=== PATIENT | female | born 1995 | race Caucasian/White ===

== ENCOUNTER 2019-11-12 23:39 | Inpatient (IN) | payer MEDICAID, SELFPAY ==
[2019-11-12 23:41] VITALS: BP 145/84; PULSE 105; RESP 18; TEMP 36.9; O2SAT 99; BMI 42.6
[2019-11-13] VITALS (46 sets, daily range): BP systolic 0–157; BP diastolic 0–93; PULSE 83–110; RESP 16; TEMP 36.8; O2SAT 97–100; BMI 43.8
--- NOTE | 2019-11-13 00:04 | W.ED.FEMALGU ---
HPI - Female Genitourinary General: Chief complaint: Urogenital-Female Stated complaint: possible uti Time Seen by Provider: 11/12/19 23:56 History of Present Illness: HPI Narrative: Patient complains about burning with urination has had some blood in her urine. Did see her OBGyn today and he told her that her urine looked kind of yucky and that he went to see her again in few days make sure the urine clears up. She is due December 05. [address] do some close shop and after appointment and she just noticed that it started burning more and she started going to bathroom more and worried that maybe she has an infection she did take some Azo-Standard also today. Denies any vaginal bleeding and says the baby is moving fine. 3 para 2 had preeclampsia with her first delivery and gestational diabetes with both pregnancies scheduled for MD elicited complaint: dysuria Onset (ago): hour(s) Location of symptoms: external genitalia and RLQ Severity: mild Quality of pain: burning Consistency: progressively worsening Urinary symptoms: Dysuria and Foul Smelling Urine Relieving factors: none Associated symptoms: Deny abdominal pain, headache(s) or nausea Treatment prior to arrival: OTC urinary analgesics Expected Date of Delivery: 12/06/19 Review of Systems Const: Denies: fever, chills or body aches Eyes: Denies: change in vision or blurry vision ENMT: Denies: throat pain or nasal congestion Card: Denies: chest pain or shortness of breath on exertion Resp: Denies: shortness of breath, productive cough or non-productive cough GI: Denies: abdominal pain, nausea or vomiting : Reports: painful urination, urinary frequency and urinary urgency Musc: Denies: extremity pain Skin/Breast: Denies: rash Neuro: Denies: headache Psych: Denies: anxiety or depression Asim/Lymph: Denies: easy bruising PFSH ED PFSH: Social History Smoking and tobacco status: never smoked Physical Exam Const: COMMON NORMALS: no apparent distress, average body habitus and oriented x3 HENMT: COMMON NORMALS: normocephalic HEAD & SCALP: normal to inspection and normocephalic FACE & SINUS: normal facial exam Eye: COMMON NORMALS: conjunctivae normal GENERAL EYE: normal appearance of both eyes CONJUNCTIVA: Yes conjunctivae normal Neck/C-Spine: COMMON NORMALS: no JVD Chest: COMMONS NORMALS: inspection of chest normal Resp: COMMON NORMALS: normal respiratory effort and clear to auscultation bilaterally AUSCULTATION: clear to auscultation bilaterally Cardio: COMMON NORMALS: no JVD, regular rate and regular rhythm RATE: regular rate RHYTHM: regular rhythm GI: COMMON NORMALS: normal to inspection, nondistended, normoactive bowel sounds Extremity: COMMON NORMALS: normal to inspection and full ROM Neuro: COMMON NORMALS: oriented x3 Course Vital Signs: Vital signs: Vital Signs Temperature 98.5 F 11/12/19 23:41 Pulse Rate 85 11/13/19 02:06 Respiratory Rate 16 11/13/19 02:06 Blood Pressure 141/92 11/13/19 02:06 Pulse Oximetry 99 11/13/19 02:06 MDM - Female MDM Narrative: Medical decision making narrative: Discussed patient with Dr. Luther and then call Dr. Dietrich at [facility] who is patient's physician. Discussed whether to transfer patient or have patient have a stress test done here Dr. Dietrich would like first to the nonstress test here. And have patient follow-up first thing Friday morning his clinic. I did discuss him with the lab results that we had available. Spoke with Dr. Luther again he was advised to call Dr. Ybarra I called Dr. Ybarra and explained patient's case and and he said they will send patient up to the OB floor for preeclampsia /nonstress test work-up. Lab work Has been drawn here in the ER here in the ER spoke with nurse and that to share lab work with Dr. Ybarra once his back nonstress test is done. Lab Data: Labs: Lab Results 11/13/19 11/13/19 11/13/19 Range/Units 00:22 01:33 01:33 WBC 9.5 (4.0-10.0) 10^3/ uL RBC 3.46 L (4.1-5.3) 10^6/u L Hgb 8.7 L (11.5-15.3) g/dL Hct 27.4 L (37.0-47.0) % MCV 79.2 L (81-99) fL MCH 25.1 L (28.0-34.0) pg MCHC 31.8 (30.0-36.0) g/dL RDW 13.5 (12.1-15.1) % Plt Count 295 (130-400) 10^3/c mm MPV 10.0 (7.4-10.4) fL Neut % (Auto) 62.9 % Lymph % (Auto) 24.2 % [place] % (Auto) 9.5 % Eos % (Auto) 0.9 % Baso % (Auto) 0.2 % Neut # (Auto) 6.0 (1.8-7.7) 10^3/u L Lymph # (Auto) 2.3 (0.8-4.8) 10^3/u L [place] # (Auto) 0.9 (0.2-0.9) 10^3/u L Eos # (Auto) 0.1 (0.0-0.8) 10^3/u L Baso # (Auto) 0.0 (0.0-0.1) 10^3/u L Nucleated RBC % (a uto) 0 % Nucleated RBCs # 0.0 /100WBC Sodium 134 L (136-145) mmol/L Potassium 3.7 (3.5-5.1) mmol/L Chloride 102 (98-107) mmol/L Carbon Dioxide 21 L (22-29) mmol/L Anion Gap 14.7 (5-19) BUN 8 (6-20) mg/dL Creatinine 0.5 (0.5-0.9) mg/dL GFR Calculation 149.1 H (90-130) mL/min Glucose 131 H (65-115) mg/dL Uric Acid 3.6 (2.4-5.7) mg/dL Calcium 9.5 (8.5-10.5) mg/dL Total Bilirubin 0.2 (0.15-1.2) mg/dL AST 14 (0-32) U/L ALT 7 (0-33) U/L Alkaline Phosphata se 88 (35-105) IU/L Total Protein 6.7 (6.6-8.7) g/dL Albumin 3.1 L (3.5-5.2) g/dL Globulin 3.6 (1.3-4.6) g/dL Urine Color [place] (Yellow) Urine Appearance Cloudy (CLEAR) Urine pH 5 (5-7) Ur Specific Gravit y 1.025 (1.005-1.030) Urine Protein 3+ H (Negative) Urine Glucose (UA) Norm (Normal) Urine Ketones Negative (Negative) Urine Blood 3+ H (Negative) Urine Nitrate Positive H (Negative) Urine Bilirubin 2+ H (NEGATIVE) Urine Urobilinogen 4+ H (Negative) mg/dL Ur Leukocyte Dayna ase Negative (Negative) Urine RBC >100 H (0-2) /hpf Urine WBC 5-10 H (0-5) /hpf Ur Squamous Epith Cells 0-4 H (0-5) Calcium Oxalate Cr ystal 0-4 H /hpf Urine Bacteria 1+ H (NONE) Discharge Plan Discharge Patient Disposition: Home, Self-Care Clinical Impression: Proteinuria affecting in third trimester Urinary tract infection Qualifiers: Urinary tract infection type: acute cystitis Hematuria presence: with hematuria Qualified Code(s): N30.01 - Acute cystitis with hematuria Condition: Stable Prescriptions: New Keflex 500 mg capsule 500 mg PO TID 7 Days Qty: 21 RF: 0 No Action Lamictal XR 100 mg Tablet Extended Release 24hr 100 mg PO DAILY RF: 0 Gummies 400 mcg-35 mg- 25 mg-5 mg Tablet,Chewable 1 tab PO DAILY RF: 0 Referrals: David Schmidt MD [Primary Care Provider] - Discharge Diet: Usual diet Patient Instructions: Urinary Tract Infection in Women (ED) Activity Restrictions/Additional Instructions: Go up to OB for preeclampsia work-up Discharge Date/Time: 11/13/19 02:07 Coding Level of Care Code ED Drafter (Cad) Electrical for Chg Fwd Exam Comprehensive
--- NOTE | 2019-11-13 00:47 | PC.NURSE ---
PATIENT STATES SHE WENT TO HER OB TODAY AND HER URINE CAME BACK WITH BLOOD IN IT. PATIENT STATES THAT TODAY SHE WAS STARTING TO SEE BLOOD IN HER URINE, AND THAT HER URINE SMELLED BAD. PATIENT STATES THAT TONIGHT SHE STARTED TO HAVE PAIN IN HER URETHRA AND VAGINAL AREA. PATIENT STATES THE PAIN IS STABBING .
[2019-11-13 01:08] LABS: Bilirubin Urine 2+ (NEGATIVE); Blood Urine 3+ (Negative); Glucose Urine UA Norm (Normal); Ketones Urine Negative (Negative); Nitrate Urine Positive (Negative); Protein Urine 3+ (Negative); Specific Gravity, Urine 1.025 (1.005-1.030); Urine Appearance Cloudy (CLEAR); Urine Color Orange (Yellow); pH Urine 5 (5-7)
[2019-11-13 01:09] LABS: Urobilinogen Urine 4+ mg/dL (Negative)
[2019-11-13 01:10] LABS: Add Urine Culture? Yes; Bacteria Urine 1+; Calcium Oxalate Crystals Urine 0-4 /hpf; Leukocyte Esterase Urine Negative (Negative); RBC Urine >100 /hpf (0-2); Squamous Epithelial Cell Urine 0-4 (0-5)
[2019-11-13 01:48] LABS: Basophils % 0.2 %; Eosinophils # 0.1 10^3/uL (0.0-0.8); Eosinophils % 0.9 %; Hematocrit 27.4 % (37.0-47.0); Hemoglobin 8.7 g/dL (11.5-15.3); Lymphocytes # 2.3 10^3/uL (0.8-4.8); Lymphocytes % 24.2 %; Mean Corpuscular HGB Conc 31.8 g/dL (30.0-36.0); Mean Corpuscular Hemoglobin 25.1 pg (28.0-34.0); Mean Corpuscular Volume 79.2 fL (81-99); Monocytes # 0.9 10^3/uL (0.2-0.9); Monocytes % 9.5 %; Neutrophils % 62.9 %; Nucleated Red Blood Cells % 0 %; Platelet Count 295 10^3/cmm (130-400); Red Blood Count 3.46 10^6/uL (4.1-5.3); Red Cell Distribution Width 13.5 % (12.1-15.1); White Blood Count 9.5 10^3/uL (4.0-10.0)
[2019-11-13] MEDS: amoxicillin 500 mg Capsule PO (01:50)
--- NOTE | 2019-11-13 01:54 | PC.NURSE ---
OB IN ROOM DOING NST
[2019-11-13 02:08] LABS: Alanine Aminotransferase 7 U/L (0-33); Albumin Level 3.1 g/dL (3.5-5.2); Alkaline Phosphatase 88 IU/L (35-105); Anion Gap 14.7 (5-19); Aspartate Amino Transferase 14 U/L (0-32); Blood Urea Nitrogen 8 mg/dL (6-20); Calcium 9.5 mg/dL (8.5-10.5); Carbon Dioxide 21 mmol/L (22-29); Chloride 102 mmol/L (98-107); Globulin 3.6 g/dL (1.3-4.6); Glomerular Filtration Rate 149.1 mL/min (90-130); Glucose 131 mg/dL (65-115); Potassium 3.7 mmol/L (3.5-5.1); Sodium 134 mmol/L (136-145); Total Bilirubin 0.2 mg/dL (0.15-1.2); Total Protein 6.7 g/dL (6.6-8.7); Uric Acid 3.6 mg/dL (2.4-5.7)
[2019-11-13 04:53] LABS: UPRO/UCREAT Ratio 0.13 mg/mg CR; Urine Creatinine 104 mg/dL (28-217); Urine Protein Random 14 mg/dL
[2019-11-13] MEDS: magnesium sulfate premix 20 GM/500 ML BAG IV (05:15)
[2019-11-13] MEDS: magnesium sulfate premix 4 GM/100 ML PREMIX IV (05:15)
[2019-11-13] MEDS: lactated ringers 1,000 ML 125 ML (05:17)
[2019-11-13] MEDS: labetalol 5 mg/mL SDV 20mL 10 MG IVP (05:18)
--- NOTE | 2019-11-13 05:23 | P.TS_ITS ---
Transfer Summary Providers Date of Admission: 11/13/19 02:10 Date of Discharge: 11/13/19 Attending Provider at Admission: Meliton Ybarra DO Attending Provider at Transfer: Meliton Ybarra DO Primary Care Provider: David Schmidt MD Anticipated Date of Transfer: Anticipated date of transfer: 11/13/19 Receiving Facility & Provider: Receiving Provider: [Dr Raygoza] Receiving facility: [[facility]] Diagnoses at Discharge Discharge Diagnosis (1) Pre-eclampsia: Status: Acute Problem details: Patient has criteria for preeclampsia or severe per her blood pressure readings. At this time she is on IV labetalol and mag sulfate will and have made arrangements to transfer to [facility] for further care and delivery at gestational age of 34 to 35 weeks. (2) Obesity affecting in third trimester: Status: Acute (3) Seizure disorder: Status: Acute Problem details: Patient has longstanding history of seizure disorder I do not think T seizure type activity reported under observation limb delivery was a seizure related to eclampsia her mother states that it was the same type of seizure type activity a t the patient has had her whole life Reason for Visit Reason for Visit: Reason For Visit: possible uti Hospital Course Hospital Course: 25-year-old G3, P2 lady with EDC of 12/12/2019 based on LMP 11/07/2018 put her at 35+6 weeks today however ultrasound done in late first trimester on would put her EDC today at 19 December 2019 currently 34+6 weeks. [facility] is on her way home from [place] today stopped into our emergency department with complaints of dysuria and evaluation in the ED was felt to have a urinary tract infection. At the request of her primary OB patient was sent to our labor and delivery for NST. While in labor and delivery patient had a category 1 tracing with baseline in the 145's. There was a brief 92nd episode of when the heart rate was not being recorded however I felt that this was due to movement after review of strip and not due to a deceleration. Is of note that in labor and delivery being observed patient's blood pressure was running baseline 140s to 150s with episodes up into 160s and 170s and at 1 point was 175/102. ( She has been followed by Dr. Dietrich for preeclampsia). Also while being monitored on labor delivery she had a seizure-like episode. This was not [place] per witnesses but more of a extremity shaking type episode. Patient's mother states this was similar to the seizure activity she has had throughout her life. Patient upon my arrival was not postictal. Due to her high blood pressure she was given labetalol 10 mg IV which brought her blood pressures down nicely into the 130s 140s over 80s to 90s. She also was started on magnesium sulfate 4 g bolus followed by 2 g/h. At this time she does have a category 1 tracing no contractions her blood pressure has indeed stabilized at consistently less than 160/100 I do however believe that this is indeed preeclampsia with severe features and with dates between 34+6 and 35+6 without the ability of NICU/nursery support who made arrangements to transfer patient to high risk center at [facility] in [facility] under the care of Dr. Raygoza Discharge Summary: See above after receiving IV labetalol mag sulfate patient stabilized out very nicely category 1 tracing events were made to ship/transfer patient by ground to [facility] in [place]. Labs: Hemoglobin 8.7 hematocrit 27.4 platelets 295,000 BUN of 8 creatinine 0.5 AST 14 ALT 7 alkaline phosphatase 88 glucose 131 Clean-catch urine showed 3+ protein 3+ blood positive nitrites negative leukocyte esterase urine RBCs greater than 105-10 white cells and 0-4 epi cells's. Protein creatinine ratio: 0.13 Physical Exam Narrative: EXAM NARRATIVE: Alert and oriented no acute distress obese female laying in bed oriented to time space and circumstance (post seizure ) Skin is generally clear HEENT grossly normal Neck supple nontender nodes or masses Lungs clear to auscultation Heart regular sinus rhythm Abdomen obese gravid soft nontender fundal height consistent with dates question vertex by Darryl's. Monitor shows category 1 tracing heart rate 140s to 145. No contractions noted Pelvic exam: Cx L/Cl/ Post Extremities grossly intact 2+ pitting edema lower extremities. Neuro right patella DTR 2-3/4 2 no clonus. TS Data Data Completed and Pending: Pending at discharge Category Date Time Status Magnesium Level ( OB Only) Q6H Lab 11/13/19 11:15 Ordered Urine Culture Sta t Lab 11/13/19 00:22 Received Labs from last 24 hours 11/13/19 11/13/19 11/13/19 04:15 01:33 01:33 WBC 9.5 RBC 3.46 L Hgb 8.7 L Hct 27.4 L MCV 79.2 L MCH 25.1 L MCHC 31.8 RDW 13.5 Plt Count 295 MPV 10.0 Neut % (Auto) 62.9 Lymph % (Auto) 24.2 [place] % (Auto) 9.5 Eos % (Auto) 0.9 Baso % (Auto) 0.2 Neut # (Auto) 6.0 Lymph # (Auto) 2.3 [place] # (Auto) 0.9 Eos # (Auto) 0.1 Baso # (Auto) 0.0 Nucleated RBC % (a uto) 0 Nucleated RBCs # 0.0 Sodium 134 L Potassium 3.7 Chloride 102 Carbon Dioxide 21 L Anion Gap 14.7 BUN 8 Creatinine 0.5 GFR Calculation 149.1 H Glucose 131 H Uric Acid 3.6 Calcium 9.5 Total Bilirubin 0.2 AST 14 ALT 7 Alkaline Phosphata se 88 Total Protein 6.7 Albumin 3.1 L Globulin 3.6 Urine Color Urine Appearance Urine pH Ur Specific Gravit y Urine Protein Urine Glucose (UA) Urine Ketones Urine Blood Urine Nitrate Urine Bilirubin Urine Urobilinogen Ur Leukocyte Dayna ase Urine RBC Urine WBC Ur Squamous Epith Cells Calcium Oxalate Cr ystal Urine Bacteria U Random Total Pro tein 14 Urine Creatinine 104 Protein/Creatinin Ratio 0.13 11/13/19 00:22 WBC RBC Hgb Hct MCV MCH MCHC RDW Plt Count MPV Neut % (Auto) Lymph % (Auto) [place] % (Auto) Eos % (Auto) Baso % (Auto) Neut # (Auto) Lymph # (Auto) [place] # (Auto) Eos # (Auto) Baso # (Auto) Nucleated RBC % (a uto) Nucleated RBCs # Sodium Potassium Chloride Carbon Dioxide Anion Gap BUN Creatinine GFR Calculation Glucose Uric Acid Calcium Total Bilirubin AST ALT Alkaline Phosphata se Total Protein Albumin Globulin Urine Color [place] Urine Appearance Cloudy Urine pH 5 Ur Specific Gravit y 1.025 Urine Protein 3+ H Urine Glucose (UA) Norm Urine Ketones Negative Urine Blood 3+ H Urine Nitrate Positive H Urine Bilirubin 2+ H Urine Urobilinogen 4+ H Ur Leukocyte Dayna ase Negative Urine RBC >100 H Urine WBC 5-10 H Ur Squamous Epith Cells 0-4 H Calcium Oxalate Cr ystal 0-4 H Urine Bacteria 1+ H U Random Total Pro tein Urine Creatinine Protein/Creatinin Ratio Vitals: Last Vital Signs Temp 98.3 F 11/13/19 02:35 Pulse 94 11/13/19 05:17 Resp 16 11/13/19 02:06 BP 0/0 11/13/19 05:21 Pulse Ox 99 11/13/19 05:18 TS Medications Medications Home Medications PNV [id number] [ Gummies] 1 tab PO DAILY 11/12/19 [History Confirmed 11/12/19] lamotrigine [Lamictal XR] 100 mg PO DAILY 11/12/19 [History Confirmed 11/12/19] cephalexin [Keflex] 500 mg PO TID 7 Days #21 cap 11/13/19 [Rx] Active Medications Calcium Gluconate (Calcium Gluconate) 1 gm IVP ONCE PRN PRN Reason: Reversal of Magnesium Sulfate Cefazolin Sodium/Dextrose (Kefzol) 2 gm in 50 mls @ 100 mls/hr IV ONCE ONE; Protocol Stop: 11/13/19 05:24 Last Admin: 11/13/19 05:14 Dose: 100 mls/hr Documented by: Magnesium Sulfate (Magnesium Sulfate Premix) 2 gm in 50 mls @ 50 mls/hr IV ONCE ONE Stop: 11/13/19 06:01 Magnesium Sulfate (Magnesium Sulfate Premix) 4 gm in 100 mls @ 50 mls/hr IV ONCE ONE Stop: 11/13/19 07:01 Last Admin: 11/13/19 05:15 Dose: 50 mls/hr Documented by: Dextrose/Lactated Ringer's (Dextrose 5%-Lactated Ringers) 1,000 mls @ 125 mls/hr IV .Q8H JIMBO Magnesium Sulfate (Magnesium Sulfate Premix) 20 gm in 500 mls @ 50 mls/hr IV .Q10H JIMBO Last Admin: 11/13/19 05:15 Dose: 50 mls/hr Documented by: Discharge Plan Discharge Patient Disposition: Home, Self-Care Condition: Stable Prescriptions: New Keflex 500 mg capsule 500 mg PO TID 7 Days Qty: 21 RF: 0 No Action Lamictal XR 100 mg Tablet Extended Release 24hr 100 mg PO DAILY RF: 0 Gummies 400 mcg-35 mg- 25 mg-5 mg Tablet,Chewable 1 tab PO DAILY RF: 0 Discharge Orders: Discharge Order (Routine); Ordered 11/13/19 Ordered By: Meliton Ybarra Referrals: David Schmidt MD [Primary Care Provider] - Discharge Diet: Usual diet Patient Instructions: Urinary Tract Infection in Women (ED) Activity Restrictions/Additional Instructions: Go up to OB for preeclampsia work-up Transfer Attestations Time Spent in Transfer Care*: greater than 30 min Specific Discharge Activities: Specific discharge activities: educating patient, educating and/or supporting family/caregiver, discussing with pcp/other providers, documenting/other paperwork and evaluating patient/reviewing data Other discharge activites (optional): arranging transfer Time Spent in Smoking Cessation: Details of Smoking Cessation Education: n/a Status at Transfer: Cognitive status at transfer: cognitively intact , Behavioral status at transfer: cooperative , Functional status at transfer: bed bound Overall status at transfer: patient is back to baseline Coding Level of Care Code Acute Project Accountant for Chg Fwd History Detailed Exam Detailed Medical Decision Making High Complexity Diagnoses Pre-eclampsia O14.90 Obesity affecting in third trimester O99.213 Seizure disorder G40.909 Time Spent (min) 90 Comment 90 minutes spent in patient's care and transfer greater than 50% in patient and family education and consultation with other providers.
--- NOTE | 2019-11-13 05:42 | PM.TDS ---
Transfer Summary Providers Date of Admission: 11/13/19 02:10 Date of Discharge: 11/13/19 Attending Provider at Admission: Meliton Ybarra DO Attending Provider at Transfer: Meliton Ybarra DO Primary Care Provider: David Schmidt MD Anticipated Date of Transfer: Anticipated date of transfer: 11/13/19 Receiving Facility & Provider: Receiving Provider: [] Receiving facility: [] Diagnoses at Discharge Discharge Diagnosis (1) Pre-eclampsia: Status: Acute Problem details: Patient has criteria for preeclampsia or severe per her blood pressure readings. At this time she is on IV labetalol and mag sulfate will and have made arrangements to transfer to [facility] for further care and delivery at gestational age of 34 to 35 weeks. (2) Obesity affecting in third trimester: Status: Acute (3) Seizure disorder: Status: Acute Problem details: Patient has longstanding history of seizure disorder I do not think T seizure type activity reported under observation limb delivery was a seizure related to eclampsia her mother states that it was the same type of seizure type activity at the patient has had her whole life Reason for Visit Reason for Visit: Reason For Visit: possible uti Hospital Course Hospital Course: 25-year-old G3, P2 lady with EDC of 12/12/2019 based on LMP 11/07/2018 put her at 35+6 weeks today however ultrasound done in late first trimester on would put her EDC today at 19 December 2019 currently 34+6 weeks. [facility] is on her way home from [place] today stopped into our emergency department with complaints of dysuria and evaluation in the ED was felt to have a urinary tract infection. At the request of her primary OB patient was sent to our labor and delivery for NST. While in labor and delivery patient had a category 1 tracing with baseline in the 145's. There was a brief 92nd episode of when the heart rate was not being recorded however I felt that this was due to movement after review of strip and not due to a deceleration. Is of note that in labor and delivery being observed patient's blood pressure was running baseline 140s to 150s with episodes up into 160s and 170s and at 1 point was 175/102. ( She has been followed by Dr. Dietrich for preeclampsia). Also while being monitored on labor delivery she had a seizure-like episode. This was not [place] per witnesses but more of a extremity shaking type episode. Patient's mother states this was similar to the seizure activity she has had throughout her life. Patient upon my arrival was not postictal. Due to her high blood pressure she was given labetalol 10 mg IV which brought her blood pressures down nicely into the 130s 140s over 80s to 90s. She also was started on magnesium sulfate 4 g bolus followed by 2 g/h. At this time she does have a category 1 tracing no contractions her blood pressure has indeed stabilized at consistently less than 160/100 I do however believe that this is indeed preeclampsia with severe features and with dates between 34+6 and 35+6 without the ability of NICU/nursery support who made arrangements to transfer patient to high risk center at [facility] in [facility] under the care of Dr. Jaret BURRIS Data Data Completed and Pending: Pending at discharge Category Date Time Status Magnesium Level ( OB Only) Q6H Lab 11/13/19 11:15 Ordered Urine Culture Sta t Lab 11/13/19 00:22 Received Labs from last 24 hours 11/13/19 11/13/19 11/13/19 04:15 01:33 01:33 WBC 9.5 RBC 3.46 L Hgb 8.7 L Hct 27.4 L MCV 79.2 L MCH 25.1 L MCHC 31.8 RDW 13.5 Plt Count 295 MPV 10.0 Neut % (Auto) 62.9 Lymph % (Auto) 24.2 [place] % (Auto) 9.5 Eos % (Auto) 0.9 Baso % (Auto) 0.2 Neut # (Auto) 6.0 Lymph # (Auto) 2.3 [place] # (Auto) 0.9 Eos # (Auto) 0.1 Baso # (Auto) 0.0 Nucleated RBC % (a uto) 0 Nucleated RBCs # 0.0 Sodium 134 L Potassium 3.7 Chloride 102 Carbon Dioxide 21 L Anion Gap 14.7 BUN 8 Creatinine 0.5 GFR Calculation 149.1 H Glucose 131 H Uric Acid 3.6 Calcium 9.5 Total Bilirubin 0.2 AST 14 ALT 7 Alkaline Phosphata se 88 Total Protein 6.7 Albumin 3.1 L Globulin 3.6 Urine Color Urine Appearance Urine pH Ur Specific Gravit y Urine Protein Urine Glucose (UA) Urine Ketones Urine Blood Urine Nitrate Urine Bilirubin Urine Urobilinogen Ur Leukocyte Dayna ase Urine RBC Urine WBC Ur Squamous Epith Cells Calcium Oxalate Cr ystal Urine Bacteria U Random Total Pro tein 14 Urine Creatinine 104 Protein/Creatinin Ratio 0.13 11/13/19 00:22 WBC RBC Hgb Hct MCV MCH MCHC RDW Plt Count MPV Neut % (Auto) Lymph % (Auto) [place] % (Auto) Eos % (Auto) Baso % (Auto) Neut # (Auto) Lymph # (Auto) [place] # (Auto) Eos # (Auto) Baso # (Auto) Nucleated RBC % (a uto) Nucleated RBCs # Sodium Potassium Chloride Carbon Dioxide Anion Gap BUN Creatinine GFR Calculation Glucose Uric Acid Calcium Total Bilirubin AST ALT Alkaline Phosphata se Total Protein Albumin Globulin Urine Color [place] Urine Appearance Cloudy Urine pH 5 Ur Specific Gravit y 1.025 Urine Protein 3+ H Urine Glucose (UA) Norm Urine Ketones Negative Urine Blood 3+ H Urine Nitrate Positive H Urine Bilirubin 2+ H Urine Urobilinogen 4+ H Ur Leukocyte Dayna ase Negative Urine RBC >100 H Urine WBC 5-10 H Ur Squamous Epith Cells 0-4 H Calcium Oxalate Cr ystal 0-4 H Urine Bacteria 1+ H U Random Total Pro tein Urine Creatinine Protein/Creatinin Ratio Vitals: Last Vital Signs Temp 98.3 F 11/13/19 02:35 Pulse 92 11/13/19 05:38 Resp 16 11/13/19 02:06 BP 135/75 11/13/19 05:38 Pulse Ox 99 11/13/19 05:38 TS Medications Medications Home Medications PNV [id number] [ Gummies] 1 tab PO DAILY 11/12/19 [History Confirmed 11/12/19] lamotrigine [Lamictal XR] 100 mg PO DAILY 11/12/19 [History Confirmed 11/12/19] cephalexin [Keflex] 500 mg PO TID 7 Days #21 cap 11/13/19 [Rx] Active Medications Calcium Gluconate (Calcium Gluconate) 1 gm IVP ONCE PRN PRN Reason: Reversal of Magnesium Sulfate Magnesium Sulfate (Magnesium Sulfate Premix) 2 gm in 50 mls @ 50 mls/hr IV ONCE ONE Stop: 11/13/19 06:01 Magnesium Sulfate (Magnesium Sulfate Premix) 4 gm in 100 mls @ 50 mls/hr IV ONCE ONE Stop: 11/13/19 07:01 Last Admin: 11/13/19 05:15 Dose: 50 mls/hr Documented by: Dextrose/Lactated Ringer's (Dextrose 5%-Lactated Ringers) 1,000 mls @ 125 mls/hr IV .Q8H JIMBO Magnesium Sulfate (Magnesium Sulfate Premix) 20 gm in 500 mls @ 50 mls/hr IV .Q10H JIMBO Last Admin: 11/13/19 05:15 Dose: 50 mls/hr Documented by: Discharge Plan Discharge Patient Disposition: Home, Self-Care Condition: Stable Prescriptions: New Keflex 500 mg capsule 500 mg PO TID 7 Days Qty: 21 RF: 0 No Action Lamictal XR 100 mg Tablet Extended Release 24hr 100 mg PO DAILY RF: 0 Gummies 400 mcg-35 mg- 25 mg-5 mg Tablet,Chewable 1 tab PO DAILY RF: 0 Discharge Orders: Discharge Order (Routine); Ordered 11/13/19 Ordered By: Meliton Ybarra Referrals: David Schmidt MD [Primary Care Provider] - Discharge Diet: Usual diet Patient Instructions: Urinary Tract Infection in Women (ED) Activity Restrictions/Additional Instructions: Go up to OB for preeclampsia work-up Coding Level of Care Code Acute Ice Hockey Coach for Chg Fwd Diagnoses Pre-eclampsia O14.90 Obesity affecting in third trimester O99.213 Seizure disorder G40.909
--- NOTE | 2019-11-13 05:48 | P.TS_ITS ---
Transfer Summary Providers Date of Admission: 11/13/19 02:10 Date of Discharge: 11/13/19 Attending Provider at Admission: Meliton Ybarra DO Attending Provider at Transfer: Meliton Ybarra DO Primary Care Provider: David Schmidt MD Anticipated Date of Transfer: Anticipated date of transfer: 11/13/19 Receiving Facility & Provider: Receiving Provider: [] Receiving facility: [] Diagnoses at Discharge Discharge Diagnosis (1) Pre-eclampsia: Status: Acute Problem details: Patient has criteria for preeclampsia or severe per her blood pressure readings. At this time she is on IV labetalol and mag sulfate will and have made arrangements to transfer to [facility] for further care and delivery at gestational age of 34 to 35 weeks. (2) Obesity affecting in third trimester: Status: Acute (3) Seizure disorder: Status: Acute Problem details: Patient has longstanding history of seizure disorder I do not think T seizure type activity reported under observation limb delivery was a seizure related to eclampsia her mother states that it was the same type of seizure type activity at the patient has had her whole life Reason for Visit Reason for Visit: Reason For Visit: possible uti Hospital Course Hospital Course: 25-year-old G3, P2 lady with EDC of 12/12/2019 based on LMP 11/07/2018 put her at 35+6 weeks today however ultrasound done in late first t on would put her EDC today at 19 December 2019 currently 34+6 weeks. [facility] home from [place] today stopped into our emergency department with complaints of dysuria and evaluation in the ED was felt to have a urinary tract infection. At the request of her primary OB patient was sent to our labor and delivery for NST. While in labor and delivery patient had a category 1 tracing with baseline in the 145's. There was a brief 92nd episode of when the heart rate was not being recorded however I felt that this was due to movement after review of strip and not due to a deceleration. Is of note that in labor and delivery being observed patient's blood pressure was running baseline 140s to 150s with episodes up into 160s and 170s and at 1 point was 175/102. ( She has been followed by Dr. Dietrich for preeclampsia). Also while being monitored on labor delivery she had a seizure-like episode. This was not [place] per witnesses but more of a extremity shaking type episode. Patient's mother states this was similar to the seizure activity she has had throughout her life. Patient upon my arrival was not postictal. Due to her high blood pressure she was given labetalol 10 mg IV which brought her blood pressures down nicely into the 130s 140s over 80s to 90s. She also was started on magnesium sulfate 4 g bolus followed by 2 g/h. At this time she does have a category 1 tracing no contractions her blood pressure has indeed stabilized at consistently less than 160/100 I do however believe that this is indeed preeclampsia with severe features and with dates between 34+6 and 35+6 without the ability of NICU/nursery support who made arrangements to transfer patient to high risk center at [facility] in [facility] under the care of Dr. Jaret BURRIS Data Data Completed and Pending: Pending at discharge Category Date Time Status Magnesium Level ( OB Only) Q6H Lab 11/13/19 11:15 Ordered Urine Culture Sta t Lab 11/13/19 00:22 Received Labs from last 24 hours 11/13/19 11/13/19 11/13/19 04:15 01:33 01:33 WBC 9.5 RBC 3.46 L Hgb 8.7 L Hct 27.4 L MCV 79.2 L MCH 25.1 L MCHC 31.8 RDW 13.5 Plt Count 295 MPV 10.0 Neut % (Auto) 62.9 Lymph % (Auto) 24.2 [place] % (Auto) 9.5 Eos % (Auto) 0.9 Baso % (Auto) 0.2 Neut # (Auto) 6.0 Lymph # (Auto) 2.3 [place] # (Auto) 0.9 Eos # (Auto) 0.1 Baso # (Auto) 0.0 Nucleated RBC % (a uto) 0 Nucleated RBCs # 0.0 Sodium 134 L Potassium 3.7 Chloride 102 Carbon Dioxide 21 L Anion Gap 14.7 BUN 8 Creatinine 0.5 GFR Calculation 149.1 H Glucose 131 H Uric Acid 3.6 Calcium 9.5 Total Bilirubin 0.2 AST 14 ALT 7 Alkaline Phosphata se 88 Total Protein 6.7 Albumin 3.1 L Globulin 3.6 Urine Color Urine Appearance Urine pH Ur Specific Gravit y Urine Protein Urine Glucose (UA) Urine Ketones Urine Blood Urine Nitrate Urine Bilirubin Urine Urobilinogen Ur Leukocyte Dayna ase Urine RBC Urine WBC Ur Squamous Epith Cells Calcium Oxalate Cr ystal Urine Bacteria U Random Total Pro tein 14 Urine Creatinine 104 Protein/Creatinin Ratio 0.13 11/13/19 00:22 WBC RBC Hgb Hct MCV MCH MCHC RDW Plt Count MPV Neut % (Auto) Lymph % (Auto) [place] % (Auto) Eos % (Auto) Baso % (Auto) Neut # (Auto) Lymph # (Auto) [place] # (Auto) Eos # (Auto) Baso # (Auto) Nucleated RBC % (a uto) Nucleated RBCs # Sodium Potassium Chloride Carbon Dioxide Anion Gap BUN Creatinine GFR Calculation Glucose Uric Acid Calcium Total Bilirubin AST ALT Alkaline Phosphata se Total Protein Albumin Globulin Urine Color [place] Urine Appearance Cloudy Urine pH 5 Ur Specific Gravit y 1.025 Urine Protein 3+ H Urine Glucose (UA) Norm Urine Ketones Negative Urine Blood 3+ H Urine Nitrate Positive H Urine Bilirubin 2+ H Urine Urobilinogen 4+ H Ur Leukocyte Dayna ase Negative Urine RBC >100 H Urine WBC 5-10 H Ur Squamous Epith Cells 0-4 H Calcium Oxalate Cr ystal 0-4 H Urine Bacteria 1+ H U Random Total Pro tein Urine Creatinine Protein/Creatinin Ratio Vitals: Last Vital Signs Temp 98.3 F 11/13/19 02:35 Pulse 92 11/13/19 05:38 Resp 16 11/13/19 02:06 BP 135/75 11/13/19 05:38 Pulse Ox 99 11/13/19 05:43 TS Medications Medications Home Medications PNV [id number] [ Gummies] 1 tab PO DAILY 11/12/19 [History Confirmed 11/12/19] lamotrigine [Lamictal XR] 100 mg PO DAILY 11/12/19 [History Confirmed 11/12/19] cephalexin [Keflex] 500 mg PO TID 7 Days #21 cap 11/13/19 [Rx] Active Medications Calcium Gluconate (Calcium Gluconate) 1 gm IVP ONCE PRN PRN Reason: Reversal of Magnesium Sulfate Magnesium Sulfate (Magnesium Sulfate Premix) 2 gm in 50 mls @ 50 mls/hr IV ONCE ONE Stop: 11/13/19 06:01 Magnesium Sulfate (Magnesium Sulfate Premix) 4 gm in 100 mls @ 50 mls/hr IV ONCE ONE Stop: 11/13/19 07:01 Last Admin: 11/13/19 05:15 Dose: 50 mls/hr Documented by: Dextrose/Lactated Ringer's (Dextrose 5%-Lactated Ringers) 1,000 mls @ 125 mls/hr IV .Q8H JIMBO Magnesium Sulfate (Magnesium Sulfate Premix) 20 gm in 500 mls @ 50 mls/hr IV .Q10H JIMBO Last Admin: 11/13/19 05:15 Dose: 50 mls/hr Documented by: Discharge Plan Discharge Patient Disposition: Other Inst w Plan Readm Condition: Stable Prescriptions: New Keflex 500 mg capsule 500 mg PO TID 7 Days Qty: 21 RF: 0 No Action Lamictal XR 100 mg Tablet Extended Release 24hr 100 mg PO DAILY RF: 0 Gummies 400 mcg-35 mg- 25 mg-5 mg Tablet,Chewable 1 tab PO DAILY RF: 0 Discharge Orders: Discharge Order (Routine); Ordered 11/13/19 Ordered By: Meliton Ybarra Referrals: David Schmidt MD [Primary Care Provider] - Discharge Diet: Usual diet Discharge Activity: Bedrest Patient Instructions: Urinary Tract Infection in Women (ED) Activity Restrictions/Additional Instructions: transfer to [facility] Transfer Attestations Time Spent in Transfer Care*: greater than 30 min Status at Transfer: Cognitive status at transfer: cognitively intact , Behavioral status at transfer: cooperative , Functional status at transfer: bed bound Overall status at transfer: patient is back to baseline Quality Metrics Clinical Quality Measures: During this hospital stay, did patient experience: None Coding Level of Care Code Acute Systems Development Manager for Amandag Fwd Diagnoses Pre-eclampsia O14.90 Obesity affecting in third trimester O99.213 Seizure disorder G40.909
--- NOTE | 2019-11-13 05:54 | PC.NURSE ---
Report given to Shazia West RN at [facility] at 1923. TEJINDER RN
--- NOTE | 2019-11-13 06:06 | PC.NURSE ---
0358 Dr. Ybarra to floor for rapid response. TEJINDER RN
--- NOTE | 2019-11-13 06:07 | PC.NURSE ---
[address] Gonzalez plan of care, patients mother in room, voiced concerns over patient staying at [facility] facility, and wanting her transferred to [facility]. Patient began to seize. Rapid response called at 0342. [address] Luther to room with team. 0358 Dr. Ybarra arrived to floor. 0401 Iv access obtained. 0403 Labetalol 10 mg IV given, LR started at 125 ml/hr. Magnesium 6 gm bolus dose started at 0408. 0413 jamison inserted.
[2019-11-13 21:44] LABS: Glucose Point of Care 94 mg/dL (70-110)
== END 2019-11-13 19:40 | disposition short-term general hospital (02) | DRG 833 ==
LOC: ER 11-13 01:45 → OBGYN 11-13 02:24
PROVIDERS: Emergency Medicine; Admitting Provider Obstetrics & Gynecology Female Pelvic Medicine and Reconstructive Surgery; Emergency Provider Nurse Practitioner Family; Family Provider Family Medicine; PCP Family Medicine; Visit Provider Obstetrics & Gynecology Female Pelvic Medicine and Reconstructive Surgery
DX: O14.13 Severe pre-eclampsia, third trimester (principal); Z3A.35 35 weeks gestation of pregnancy; O99.353 Diseases of the nervous system complicating pregnancy, third trimester
CPT/HCPCS: 12345; 36416; 51702; 59025; 80053; 81001; 82570; 82962; 84156; 84550; 85025; 87086; 99211; 99282; A9270; G0378; J0690; J3475; J3490

== ENCOUNTER → 2020-01-13 07:47 | Outpatient (BNVA) | payer OTHER, SELFPAY | PROVIDERS: Family Provider Family Medicine; PCP Family Medicine; Visit Provider Nurse Practitioner | DX: F43.10 Post-traumatic stress disorder, unspecified (principal); F41.1 Generalized anxiety disorder | CPT/HCPCS: 99214 ==

== ENCOUNTER 2020-06-20 22:46 | Emergency (ER) | payer MEDICAID, SELFPAY ==
[2020-06-20 22:56] VITALS: BP 143/92; PULSE 82; RESP 18; TEMP 36.7; O2SAT 97; BMI 38.0
--- NOTE | 2020-06-20 23:13 | W.ED.SEIZURE ---
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 Patient is in a lot of stress lately mother is with her here agrees that they have been a lot of stress her headaches directly seem to be attributed that and they are both aware that the seizures are psychogenic and not real seizures MD complaint: other (Headaches) Onset (ago): week(s) Associated symptoms: Deny chest pain, chills or fever(s) Review of Systems Const: Denies: fever(s), chills or body aches Eyes: Denies: change in vision or blurry vision ENMT: Denies: throat pain or nasal congestion Card: Denies: chest pain or dyspnea on exertion Resp: Denies: dyspnea, productive cough or non-productive cough GI: Denies: abdominal pain, nausea or vomiting Musc: Denies: extremity pain Skin/Breast: Denies: rash Neuro: Reports: headache(s) and seizure-like activity (I marko back and head but no involuntary movements no vomiting noted no neurological signs symptoms) Psych: Reports: anxiety and other (Less stress in her life been related to her headaches when she is stressed she has psychogenic seizures); Denies: depression Asim/Lymph: Denies: easy bruising [facility] PFSH: Medical History (Updated 06/20/20 @ 23:52 by ANDRE Dixon) Generalized anxiety disorder Post-traumatic stress disorder, unspecified Social History Smoking and tobacco status: never smoked Female Reproductive History: Date of last menstrual period: 06/15/20 Physical Exam Const: COMMON NORMALS: no acute distress, average body habitus and patient oriented x3 HENMT: COMMON NORMALS: normocephalic HEAD & SCALP: normal to inspection and normocephalic FACE & SINUS: normal facial exam Eye: COMMON NORMALS: conjunctivae normal GENERAL EYE: appearance normal, both eyes and all related structures CONJUNCTIVA: Yes conjunctivae normal Neck/C-Spine: COMMON NORMALS: full ROM, no JVD and Thyroid normal; negative for supple (Next tender consistent with tension type headaches) GENERAL: No anterior neck swelling and No lymphadenopathy THYROID: Thyroid normal CERVICAL SPINE: Yes cervical ROM normal Chest: COMMONS NORMALS: normal inspection of the chest Resp: COMMON NORMALS: normal respiratory effort and clear to auscultation bilaterally AUSCULTATION: clear to auscultation bilaterally Cardio: COMMON NORMALS: no JVD, regular rate and regular rhythm RATE: regular rate RHYTHM: regular rhythm GI: COMMON NORMALS: Normal to inspection, nondistended, normoactive bowel sounds present Extremity: COMMON NORMALS: normal to inspection and full ROM Neuro: COMMON NORMALS: patient oriented x3 Course Vital Signs: Vital signs: Vital Signs Temperature 98.1 F 06/20/20 22:56 Pulse Rate 76 06/21/20 00:05 Respiratory Rate 18 06/21/20 00:05 Blood Pressure 132/84 06/21/20 00:05 Pulse Oximetry 99 06/21/20 00:05 Discharge Plan Discharge Patient Disposition: Home Clinical Impression: Chronic tension-type headache Qualifiers: Intractability: intractable Qualified Code(s): G44.221 - Chronic tension-type headache, intractable Condition: Stable Prescriptions: New Fioricet 50-300-40 mg capsule 1 cap PO Q6H PRN (Reason: pain) Qty: 20 RF: 0 No Action paroxetine HCl [Paxil] 20 mg tablet 20 mg PO .HS Qty: 30 RF: 0 propranolol 10 mg tablet 10 mg PO BID Qty: 60 RF: 0 Lamictal XR 100 mg Tablet Extended Release 24hr 100 mg PO DAILY RF: 0 Gummies 400 mcg-35 mg- 25 mg-5 mg Tablet,Chewable 1 tab PO DAILY RF: 0 Discharge Orders: Discharge Order (Routine); Ordered 06/20/20 Ordered By: Chandler Puckett Discharge Diet: Usual diet Discharge Activity: Increase activity as tolerated Patient Instructions: Tension Headache (ED) Activity Restrictions/Additional Instructions: Follow-up with medical provider as directed. Take medications as prescribed. Return to the ER or your medical provider if condition worsens. Please read and understand discharge instructions. If any questions ask please. Discharge Date/Time: 06/21/20 00:06 Coding Level of Care Code ED Nursing Informatics Analyst for Jose Fwd Exam Comprehensive
[2020-06-20] MEDS: ketorolac 60 mg/2 mL INJ IM (23:24)
[2020-06-20] MEDS: orphenadrine 30 mg/mL Inj 2 mL 60 MG IM (23:24)
[2020-06-21 00:05] VITALS: BP 132/84; PULSE 76; RESP 18; O2SAT 99
== END 2020-06-21 00:06 | disposition home or self-care (01) ==
PROVIDERS: Emergency Provider Nurse Practitioner Family
DX: G44.221 Chronic tension-type headache, intractable (principal)
CPT/HCPCS: 12345; 96372; 99283; J1885; J2360

== ENCOUNTER 2020-06-29 12:29 | Emergency (ER) | payer MEDICAID, SELFPAY ==
[2020-06-29 12:31] VITALS: BMI 42.5
[2020-06-29 12:38] VITALS: BP 146/102; PULSE 54; RESP 16; O2SAT 97
[2020-06-29 13:04] LABS: Basophils # 0.1 10^3/uL (0.0-0.1); Basophils % 0.7 %; Eosinophils # 0.1 10^3/uL (0.0-0.8); Eosinophils % 1.6 %; Hematocrit 39.2 % (37.0-47.0); Hemoglobin 12.1 g/dL (11.5-15.3); Lymphocytes # 2.8 10^3/uL (0.8-4.8); Lymphocytes % 37.1 %; Mean Corpuscular HGB Conc 30.9 g/dL (30.0-36.0); Mean Corpuscular Hemoglobin 24.5 pg (28.0-34.0); Mean Corpuscular Volume 79.4 fL (81-99); Monocytes # 0.7 10^3/uL (0.2-0.9); Monocytes % 8.8 %; Neutrophils # 3.84 10^3/uL (1.8-7.7); Neutrophils % 51.4 %; Nucleated Red Blood Cells % 0 %; Platelet Count 322 10^3/cmm (130-400); Red Blood Count 4.94 10^6/uL (4.1-5.3); Red Cell Distribution Width 14.7 % (12.1-15.1); White Blood Count 7.5 10^3/uL (4.0-10.0)
[2020-06-29] MEDS: LORazepam 2 mg/mL INJ 1 mL 1 MG IVP (13:06)
[2020-06-29] MEDS: diphenhydrAMINE 50 mg/mL SDV 1mL 25 MG IVP (13:06)
[2020-06-29] MEDS: metoclopramide 5 mg/mL SDV 2 mL 10 MG IV (13:06)
[2020-06-29] MEDS: ketorolac 30 mg/mL INJ 10 MG IVP (13:06)
[2020-06-29 13:07] LABS: Add Urine Microscopic? YES; Bilirubin Urine Neg (Negative); Blood Urine Neg (Negative); Glucose Urine UA Norm (Normal); Ketones Urine Negative (Negative); Leukocyte Esterase Urine Negative (Negative); Nitrate Urine Negative (Negative); Protein Urine Neg (Negative); Urine Appearance Hazy (CLEAR); Urine Color Yellow (Yellow); Urobilinogen Urine Norm (Negative)
[2020-06-29 13:22] LABS: RBC Urine 0-4 /hpf (0-2)
[2020-06-29 13:23] LABS: Add Urine Culture? No; Bacteria Urine 1+ /hpf
--- NOTE | 2020-06-29 13:24 | W.ED.SEIZURE ---
HPI - Seizure General: Chief Complaint: Seizure Stated Complaint: SEIZURES/ MIGRAINE Time Seen by Provider: 06/29/20 12:30 Source: patient, family and EMS Mode of arrival: EMS Limitations: no limitations History of Present Illness: HPI Narrative: Hiwot is a very nice 24-year-old female who comes in after she had a breakthrough seizure. Patient has a history of nonepileptic seizures, as she calls them PNES or pseudoseizures. Patient states she is had a migraine now for almost 3 weeks that is waxed and waned and she believes that is what is caused her seizure. She denies any sudden onset thunderclap type headache, neck pain or stiffness or fever. She denies any skin rashes. Her seizure today was typical in nature with tonic-clonic type of activity. Patient did not have any loss of bowel or bladder control. She denies any injuries from the seizure. She complains of a headache now but she again states this headaches been going on for over 3 weeks. Seizure History: Yes (Hx psuedo-seizures) Place: [facility] Associated symptoms: Deny chest pain, chills, confusion, diaphoresis, fever(s), malaise or syncope Review of Systems Const: Denies: fever(s), chills, body aches, fatigue, malaise or diaphoresis Eyes: Denies: change in vision, blurry vision, photophobia, eye discomfort, eye discharge, eye redness or yellow eyes ENMT: Denies: throat pain, odynophagia, hoarseness, swelling of lips/tongue, ear or mastoid pain, ear discharge, change in hearing or nasal discharge Card: Denies: chest pain, palpitations, irregular heart rhythm, edema, lightheadedness, syncope, pre-syncope, dyspnea on exertion or orthopnea Resp: Denies: dyspnea, productive cough, non-productive cough, wheezing, hemoptysis or chest congestion GI: Denies: abdominal pain, nausea, vomiting, hematemesis, coffee ground emesis, heartburn, diarrhea, constipation, GI cramping, hematochezia or melena : Denies: flank pain, dysuria, urinary frequency, urinary urgency or hematuria Musc: Denies: neck pain, back pain, extremity pain, extremity swelling, joint pain, joint swelling, joint redness, joint warmth or joint stiffness Skin/Breast: Denies: rash, pruritus, erythema, skin pain or skin tenderness Neuro: Reports: headache(s) and seizure-like activity; Denies: numbness in extremities, weakness in extremities, sensory changes, lack of coordination, difficulty walking, dizziness, vertigo, confusion or Slurred speech present Asim/Lymph: Denies: easy bruising, easy bleeding, petechiae, purpura or enlarged lymph nodes All/Imm: Denies: urticaria, throat swelling, tongue swelling, facial swelling or acute wheezing PFSH ED PFSH: Medical History (Updated 06/29/20 @ 13:43 by Bushra Cano) Generalized anxiety disorder Post-traumatic stress disorder, unspecified Seizure disorder Patient has longstanding history of seizure disorder I do not think T seizure type activity reported under observation limb delivery was a seizure related to eclampsia her mother states that it was the same type of seizure type activity at the patient has had her whole life Social History Smoking and tobacco status: never smoked Female Reproductive History: Date of last menstrual period: 06/15/20 Physical Exam Const: COMMON NORMALS: no acute distress, patient oriented x3, no limitations and alert GENERAL APPEARANCE: cooperative HENMT: COMMON NORMALS: normocephalic, atraumatic, external ears normal, EAC's normal and Normal external nose present HEAD & SCALP: normal to inspection, normocephalic and atraumatic FACE & SINUS: normal facial exam and face symmetric NOSE: Normal external nose present and Normal nares present EXTERNAL EAR: Yes external ears normal EXTERNAL AUDITORY CANAL: EAC's normal MOUTH: Normal oral and palatal mucosa present, lip normal and tongue normal Eye: COMMON NORMALS: Equal, round and reactive pupils present and conjunctivae normal GENERAL EYE: appearance normal, both eyes and all related structures ALIGNMENT: Yes alignment normal PERIORBITAL: periorbital findings normal EYELID: eyelids normal CONJUNCTIVA: Yes conjunctivae normal SCLERA: sclerae normal PUPIL: Yes Equal, round and reactive pupils present Neck/C-Spine: COMMON NORMALS: full ROM, no lymphadenopathy, supple, no meningeal signs and no JVD GENERAL: Yes normal visual inspection and Yes trachea midline Chest: COMMONS NORMALS: normal inspection of the chest and normal palpation of entire chest wall Resp: COMMON NORMALS: normal respiratory effort, No retractions, No use of accessory muscles and clear to auscultation bilaterally EFFORT & INSPECTION: Yes able to speak in complete sentences and Yes symmetric chest movement AUSCULTATION: clear to auscultation bilaterally, no crackles, no rales, no rhonchi and no wheezes Cardio: COMMON NORMALS: no JVD, regular rate, regular rhythm, S1 normal heart sound present and S2 normal heart sound present RATE: regular rate RHYTHM: regular rhythm HEART SOUNDS: S1 normal heart sound present, S2 normal heart sound present, no click, no gallops, no murmurs and no rubs GI: COMMON NORMALS: Soft to palpation and No hepatosplenomegaly present PALPATION: Yes Soft to palpation, No Tenderness to palpation present (GI), No Guarding due to palpation present (GI), No Rigid due to palpation, Yes No hepatosplenomegaly present, No Hernia present, No Palpable mass present and No Pulsatile mass present : COMMON NORMALS: Yes no CVA tenderness BLADDER/KIDNEY EXAM: Yes no CVA tenderness EXTERNAL FEMALE EXAM: No Hernia present Back/Pelvis: COMMON NORMALS: no CVA tenderness, thoracic and lumbar spine normal to inspection, no thoracic nor lumbar tenderness and thoraco-lumbar ROM normal Extremity: COMMON NORMALS: normal to inspection, full ROM, capillary refill normal, no joint enlargement, no clubbing, cyanosis or edema and no calf tenderness Neuro: COMMON NORMALS: patient oriented x3, CN's II-XII intact bilaterally, moves all extremities, no focal motor deficits and no sensory deficits noted SENSORIUM/ORIENTATION: Yes alert MENINGEAL SIGNS: Yes no meningeal signs SPEECH: speech normal Psych: COMMON NORMALS: mental status grossly normal, Normal thought process present, cooperative, normal affect, speech normal and activity/motor behavior normal SPEECH: Yes normal speech THOUGHT PROCESS: Normal thought process present Skin: COMMON NORMALS: no rashes or lesions noted, turgor normal, no jaundice, no petechiae and no mottling GENERAL SKIN EXAM: no rashes or lesions noted and turgor normal Course Vital Signs: Vital signs: Vital Signs Pulse Rate 62 06/29/20 13:49 Respiratory Rate 14 06/29/20 13:49 Blood Pressure 138/70 06/29/20 13:49 Pulse Oximetry 98 06/29/20 13:49 MDM - Seizure MDM Narrative: Medical decision making narrative: 0130 -patient is feeling much better after medications been administered. I will give her a dose of Decadron to help prevent headache recurrence. She states this is her typical headache pattern and she is had headaches last this long before. She denies any other complaints or concerns at this time would like to be discharged. She agrees to return should her headache return or she have any other symptoms. Lab Data: Attestation: I reviewed the patient's lab results. Labs: Lab Results 06/29/20 06/29/20 06/29/20 Range/Units 12:43 12:58 12:58 WBC 7.5 (4.0-10.0) 10^3/ uL RBC 4.94 (4.1-5.3) 10^6/u L Hgb 12.1 (11.5-15.3) g/dL Hct 39.2 (37.0-47.0) % MCV 79.4 L (81-99) fL MCH 24.5 L (28.0-34.0) pg MCHC 30.9 (30.0-36.0) g/dL RDW 14.7 (12.1-15.1) % Plt Count 322 (130-400) 10^3/c mm MPV 10.0 (7.4-10.4) fL Neut % (Auto) 51.4 % Lymph % (Auto) 37.1 % Beckham % (Auto) 8.8 % Eos % (Auto) 1.6 % Baso % (Auto) 0.7 % Neut # (Auto) 3.84 (1.8-7.7) 10^3/u L Lymph # (Auto) 2.8 (0.8-4.8) 10^3/u L Beckham # (Auto) 0.7 (0.2-0.9) 10^3/u L Eos # (Auto) 0.1 (0.0-0.8) 10^3/u L Baso # (Auto) 0.1 (0.0-0.1) 10^3/u L Nucleated RBC % (a uto) 0 % Nucleated RBCs # 0.0 /100WBC Sodium 138 (136-145) mmol/L Potassium 3.6 (3.5-5.1) mmol/L Chloride 101 (98-107) mmol/L Carbon Dioxide 24 (22-29) mmol/L Anion Gap 16.6 (5-19) BUN 9 (6-20) mg/dL Creatinine 0.6 (0.5-0.9) mg/dL GFR Calculation 120.8 (90-130) mL/min Glucose 92 (65-115) mg/dL Calculated Osmolal ity 284 L (285-295) mOsm/k g Calcium 9.7 (8.5-10.5) mg/dL Magnesium 2.2 (1.7-2.3) mg/dL Total Bilirubin 0.2 (0.15-1.2) mg/dL AST 26 (0-32) U/L ALT 34 H (0-33) U/L Alkaline Phosphata se 77 (35-105) IU/L Total Protein 7.7 (6.6-8.7) g/dL Albumin 4.5 (3.5-5.2) g/dL Globulin 3.2 (1.3-4.6) g/dL HCG, Qual (Negative) Urine Color Yellow (Yellow) Urine Appearance Hazy A (CLEAR) Urine pH 6.0 (5-7) Ur Specific Gravit y 1.020 (1.005-1.030) Urine Protein Neg (Negative) Urine Glucose (UA) Norm (Normal) Urine Ketones Negative (Negative) Urine Blood Neg (Negative) Urine Nitrate Negative (Negative) Urine Bilirubin Neg (Negative) Urine Urobilinogen Norm (Negative) mg/dL Ur Leukocyte Dayna ase Negative (Negative) Urine RBC 0-4 H (0-2) /hpf Urine WBC None (0-5) /hpf Ur Squamous Epith Cells 5-10 H (0-5) /hpf Amorphous Sediment Not Reportable Urine Bacteria 1+ H (NONE) /hpf 15/20 Range/Units 12:58 WBC (4.0-10.0) 10^3/ uL RBC (4.1-5.3) 10^6/u L Hgb (11.5-15.3) g/dL Hct (37.0-47.0) % MCV (81-99) fL MCH (28.0-34.0) pg MCHC (30.0-36.0) g/dL RDW (12.1-15.1) % Plt Count (130-400) 10^3/c mm MPV (7.4-10.4) fL Neut % (Auto) % Lymph % (Auto) % Beckham % (Auto) % Eos % (Auto) % Baso % (Auto) % Neut # (Auto) (1.8-7.7) 10^3/u L Lymph # (Auto) (0.8-4.8) 10^3/u L Beckham # (Auto) (0.2-0.9) 10^3/u L Eos # (Auto) (0.0-0.8) 10^3/u L Baso # (Auto) (0.0-0.1) 10^3/u L Nucleated RBC % (a uto) % Nucleated RBCs # /100WBC Sodium (136-145) mmol/L Potassium (3.5-5.1) mmol/L Chloride (98-107) mmol/L Carbon Dioxide (22-29) mmol/L Anion Gap (5-19) BUN (6-20) mg/dL Creatinine (0.5-0.9) mg/dL GFR Calculation (90-130) mL/min Glucose (65-115) mg/dL Calculated Osmolal ity (285-295) mOsm/k g Calcium (8.5-10.5) mg/dL Magnesium (1.7-2.3) mg/dL Total Bilirubin (0.15-1.2) mg/dL AST (0-32) U/L ALT (0-33) U/L Alkaline Phosphata se (35-105) IU/L Total Protein (6.6-8.7) g/dL Albumin (3.5-5.2) g/dL Globulin (1.3-4.6) g/dL HCG, Qual Negative (Negative) Urine Color (Yellow) Urine Appearance (CLEAR) Urine pH (5-7) Ur Specific Gravit y (1.005-1.030) Urine Protein (Negative) Urine Glucose (UA) (Normal) Urine Ketones (Negative) Urine Blood (Negative) Urine Nitrate (Negative) Urine Bilirubin (Negative) Urine Urobilinogen (Negative) mg/dL Ur Leukocyte Dayna ase (Negative) Urine RBC (0-2) /hpf Urine WBC (0-5) /hpf Ur Squamous Epith Cells (0-5) /hpf Amorphous Sediment Urine Bacteria (NONE) /hpf EKG Data^: EKG 1: Attestation: I personally reviewed and interpreted this EKG as follows: EKG interpretation date: 06/29/20 EKG interpretation time: 12:27 Interpretation: Normal sinus rhythm 83 beats a minute, normal axis, no blocks, normal intervals, no acute ST-T wave changes. Discharge Plan Discharge Patient Disposition: Home Clinical Impression: Generalized seizure Migraine headache Qualifiers: Migraine type: persistent migraine aura without cerebral infarction Status migrainosus presence: with status migrainosus Intractability: intractable Qualified Code(s): G43.511 - Persistent migraine aura without cerebral infarction, intractable, with status migrainosus Condition: Stable Prescriptions: No Action paroxetine HCl [Paxil] 20 mg tablet 20 mg PO .HS Qty: 30 RF: 0 propranolol 10 mg tablet 10 mg PO BID Qty: 60 RF: 0 Lamictal XR 100 mg Tablet Extended Release 24hr 100 mg PO DAILY RF: 0 Gummies 400 mcg-35 mg- 25 mg-5 mg Tablet,Chewable 1 tab PO DAILY RF: 0 Fioricet 50-300-40 mg capsule 1 cap PO Q6H PRN (Reason: pain) Qty: 20 RF: 0 Discharge Orders: Discharge Order (Routine); Ordered 06/29/20 Ordered By: Bushra Cano Referrals: Elizabeth Hernandez MD [Physician] - 7-10 days Discharge Diet: Advance as tolerated Discharge Activity: Increase activity as tolerated Patient Instructions: Migraine Headache (ED) Activity Restrictions/Additional Instructions: Please return to the ER immediately for any of the signs or symptoms listed on your discharge instruction sheets, worsening/changing of your symptoms, you are not getting better as quickly as expected, or for ANY other cause or concerns. Discharge Date/Time: 06/29/20 14:00 Coding Level of Care Code ED Gang Boss for Chg Fwd Exam Comprehensive
[2020-06-29 13:27] LABS: Alanine Aminotransferase 34 U/L (0-33); Albumin Level 4.5 g/dL (3.5-5.2); Alkaline Phosphatase 77 IU/L (35-105); Anion Gap 16.6 (5-19); Aspartate Amino Transferase 26 U/L (0-32); Blood Urea Nitrogen 9 mg/dL (6-20); Calcium 9.7 mg/dL (8.5-10.5); Carbon Dioxide 24 mmol/L (22-29); Chloride 101 mmol/L (98-107); Globulin 3.2 g/dL (1.3-4.6); Glomerular Filtration Rate 120.8 mL/min (90-130); Glucose 92 mg/dL (65-115); Magnesium 2.2 mg/dL (1.7-2.3); Osmolality Calculated 284 mOsm/kg (285-295); Potassium 3.6 mmol/L (3.5-5.1); Sodium 138 mmol/L (136-145); Total Bilirubin 0.2 mg/dL (0.15-1.2); Total Protein 7.7 g/dL (6.6-8.7)
[2020-06-29 13:28] LABS: HCG, Serum Qual Negative (Negative)
[2020-06-29] MEDS: dexamethasone 10 mg/mL INJ IVP (13:43)
[2020-06-29 13:49] VITALS: BP 138/70; PULSE 62; RESP 14; O2SAT 98
== END 2020-06-29 14:00 | disposition home or self-care (01) ==
PROVIDERS: Emergency Provider Emergency Medicine
DX: G40.89 Other seizures (principal); G43.511 Persistent migraine aura without cerebral infarction, intractable, with status migrainosus
CPT/HCPCS: 12345; 80053; 81001; 83735; 84703; 85025; 96374; 96375; 99283; 99284; J0131; J1100; J1200; J1885; J2060; J2765

== ENCOUNTER → 2020-07-06 08:12 | Outpatient (BNVA) | payer MEDICAID, SELFPAY | PROVIDERS: Visit Provider Nurse Practitioner | DX: F43.10 Post-traumatic stress disorder, unspecified (principal); F41.1 Generalized anxiety disorder | CPT/HCPCS: 99214 ==

== ENCOUNTER → 2020-08-19 13:28 | Outpatient (BNVA) | payer MEDICAID, SELFPAY | PROVIDERS: Visit Provider Nurse Practitioner | DX: J02.9 Acute pharyngitis, unspecified (principal); J01.90 Acute sinusitis, unspecified | CPT/HCPCS: 87071; 87880 ==

== ENCOUNTER 2020-08-22 20:00 | Outpatient (CLI) | payer MEDICAID, SELFPAY | END 2020-08-22 20:01 | disposition home or self-care (01) | LOC: SLEEP 08-23 12:49 | PROVIDERS: Visit Provider Nurse Practitioner Family | DX: G47.33 Obstructive sleep apnea (adult) (pediatric) (principal) | CPT/HCPCS: 95810 ==

== ENCOUNTER 2020-09-20 06:34 | Inpatient (IN) | payer MEDICAID, SELFPAY ==
[2020-09-20 06:42] VITALS: BP 165/113; PULSE 80; RESP 18; TEMP 36.6; O2SAT 99; BMI 39.9
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
[2020-09-20 07:25] LABS: Basophils % 0.5 %; Eosinophils # 0.1 10^3/uL (0.0-0.8); Eosinophils % 1.5 %; Hematocrit 35.5 % (37.0-47.0); Hemoglobin 11.2 g/dL (11.5-15.3); Lymphocytes # 2.4 10^3/uL (0.8-4.8); Lymphocytes % 32.7 %; Mean Corpuscular HGB Conc 31.5 g/dL (30.0-36.0); Mean Corpuscular Hemoglobin 25.5 pg (28.0-34.0); Mean Corpuscular Volume 80.9 fL (81-99); Monocytes # 0.6 10^3/uL (0.2-0.9); Monocytes % 8.6 %; Neutrophils # 4.18 10^3/uL (1.8-7.7); Neutrophils % 56.3 %; Nucleated Red Blood Cells % 0 %; Platelet Count 345 10^3/cmm (130-400); Red Blood Count 4.39 10^6/uL (4.1-5.3); Red Cell Distribution Width 13.8 % (12.1-15.1); White Blood Count 7.4 10^3/uL (4.0-10.0)
[2020-09-20] MEDS: LORazepam 1 mg Tablet PO (07:40)
[2020-09-20 07:48] LABS: Amphetamines Screen Urine Negative (Negative); Barbiturates Screen Urine Negative (Negative); Benzodiazepines Screen Urine Negative (Negative); Cocaine Screen Urine Negative (Negative); Opiate Screen Urine Negative (Negative); PCP Screen Urine Negative (Negative); THC Screen Urine Negative (Negative)
[2020-09-20 07:57] LABS: Alanine Aminotransferase 24 U/L (0-33); Albumin Level 4.1 g/dL (3.5-5.2); Alkaline Phosphatase 68 IU/L (35-105); Anion Gap 13.9 (5-19); Aspartate Amino Transferase 18 U/L (0-32); Blood Urea Nitrogen 13 mg/dL (6-20); Calcium 9.1 mg/dL (8.5-10.5); Carbon Dioxide 23 mmol/L (22-29); Chloride 103 mmol/L (98-107); Globulin 3.1 g/dL (1.3-4.6); Glomerular Filtration Rate 119.9 mL/min (90-130); Glucose 111 mg/dL (65-115); Osmolality Calculated 283 mOsm/kg (285-295); Potassium 3.9 mmol/L (3.5-5.1); Sodium 136 mmol/L (136-145); Thyroid Stimulating Hormone 3.43 uIU/mL (0.27-4.20); Total Bilirubin 0.3 mg/dL (0.15-1.2); Total Protein 7.2 g/dL (6.6-8.7)
[2020-09-20 08:00] LABS: Alcohol Level < 10 mg/dL (0-10)
[2020-09-20 09:21] VITALS: RESP 18
[2020-09-20 10:55] VITALS: RESP 18
[2020-09-20 11:02] VITALS: BP 121/79; PULSE 62; RESP 18; O2SAT 99
[2020-09-20 11:48] VITALS: BP 126/84; PULSE 71; RESP 20; TEMP 36.7; O2SAT 100
[2020-09-20 20:12] VITALS: BP 138/86; PULSE 79; RESP 19; TEMP 36.8; O2SAT 97
[2020-09-20] MEDS: propranolol 20 mg Tablet PO (23:24)
[2020-09-20] MEDS: hyDROXYzine 25 mg Capsule 50 MG PO (23:24)
[2020-09-20] MEDS: lisinopril 5 mg Tablet PO (23:24)
[2020-09-20] MEDS: PARoxetine 20 mg Tablet PO (23:24)
[2020-09-20] MEDS: lamoTRIgine 100 mg Tablet PO (23:55)
[2020-09-20] MEDS: trazodone 50 mg Tablet PO (23:55)
--- NOTE | 2020-09-21 02:58 | PC.NURSE ---
gave scheduled Trazadone 50mg and Lamotrigine 100mg at 2355 on 09-20-20 but meds did not scan.
[2020-09-21 05:58] VITALS: BP 108/67; PULSE 51; RESP 14; TEMP 36.3; O2SAT 97
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
[2020-09-21] MEDS: propranolol 20 mg Tablet PO ×2 (11:32→21:31)
[2020-09-21 14:00] VITALS: BP 132/68; PULSE 68; RESP 18; TEMP 37.1; O2SAT 94
[2020-09-21 20:00] VITALS: BP 117/75; PULSE 58; RESP 19; TEMP 36.4; O2SAT 98
[2020-09-21] MEDS: PARoxetine 20 mg Tablet PO (21:31)
[2020-09-21] MEDS: lamoTRIgine 100 mg Tablet PO (21:31)
[2020-09-21] MEDS: hyDROXYzine 25 mg Capsule 50 MG PO (21:32)
[2020-09-21] MEDS: lisinopril 5 mg Tablet PO (21:32)
[2020-09-21] MEDS: trazodone 50 mg Tablet PO (21:32)
[2020-09-22 06:00] VITALS: BP 120/73; PULSE 54; RESP 18; TEMP 36.7; O2SAT 97
[2020-09-22] MEDS: propranolol 20 mg Tablet PO ×2 (08:11→20:34)
[2020-09-22 14:00] VITALS: BP 118/73; PULSE 52; RESP 18; TEMP 36.2; O2SAT 96
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
[2020-09-22 19:49] VITALS: BP 111/63; PULSE 60; RESP 18; TEMP 36.9; O2SAT 98
[2020-09-22] MEDS: hyDROXYzine 25 mg Capsule 50 MG PO (20:33)
[2020-09-22] MEDS: trazodone 50 mg Tablet PO (20:34)
[2020-09-22] MEDS: lisinopril 5 mg Tablet PO (20:35)
[2020-09-22] MEDS: PARoxetine 20 mg Tablet 40 MG PO (20:35)
[2020-09-22] MEDS: lamoTRIgine 100 mg Tablet PO (20:36)
--- NOTE | 2020-09-22 21:50 | PC.NURSE ---
Pm Assessment Pt Denies AH/VH, Denies SI/Hi. Confirms increased depression today. Pt v/s normal, lung sounds normal, heart sounds normal. Pt is interactive with others, staff, and is reading calmly in her room at this time.
[2020-09-22] MEDS: acetaminophen 325 mg Tablet 650 MG PO (22:28)
[2020-09-23 06:00] VITALS: BP 100/61; PULSE 50; RESP 14; TEMP 36.7; O2SAT 96
[2020-09-23] MEDS: propranolol 20 mg Tablet PO (08:19)
[2020-09-23 14:00] VITALS: BP 106/68; PULSE 68; RESP 18; TEMP 36.8
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
[2020-09-23 17:14] VITALS: BP 106/68; PULSE 68; RESP 18; TEMP 36.8
== END 2020-09-23 17:25 | disposition home or self-care (01) | DRG 885 ==
LOC: ER 09:21 → NP 10:31
PROVIDERS: Admitting Provider Psychiatry & Neurology Psychiatry; Emergency Provider Family Medicine; Visit Provider Psychiatry & Neurology Psychiatry
DX: F31.62 Bipolar disorder, current episode mixed, moderate (principal); R45.851 Suicidal ideations; T76.21XA Adult sexual abuse, suspected, initial encounter; F41.1 Generalized anxiety disorder; F43.10 Post-traumatic stress disorder, unspecified; E66.9 Obesity, unspecified; Z68.39 Body mass index [BMI] 39.0-39.9, adult
CPT/HCPCS: 12345; 80053; 80306; 80307; 84443; 85025; 99284

== ENCOUNTER → 2020-09-29 08:33 | Outpatient (BNVA) | payer MEDICAID, SELFPAY | PROVIDERS: Visit Provider Nurse Practitioner | DX: F41.1 Generalized anxiety disorder (principal); F43.10 Post-traumatic stress disorder, unspecified | CPT/HCPCS: 99214 ==

== ENCOUNTER 2020-11-10 09:59 | Outpatient (CLI) | payer MEDICAID, SELFPAY ==
--- NOTE | 2020-11-10 10:10 | XR_ITS ---
WS: [id number] Exam: XR wrist RT min 3V* [id number] Date/Time of Exam: 11/10/2020 10:15 AM Reason For Exam: INJURY RIGHT WRIST There are no fractures, soft tissue swelling, or unusual calcifications. The wrist shows normal bony alignment. There is no irregularity of the bony architecture. XR/XR wrist RT min 3V* [id number] IMPRESSION: Negative right wrist.
== END 2020-11-10 10:00 | disposition home or self-care (01) ==
PROVIDERS: PCP Nurse Practitioner Family; Visit Provider Nurse Practitioner Family
DX: S69.91XA Unspecified injury of right wrist, hand and finger(s), initial encounter (principal); X58.XXXA Exposure to other specified factors, initial encounter
CPT/HCPCS: 73110

== ENCOUNTER → 2020-12-20 11:06 | Outpatient (BNVA) | payer MEDICAID, SELFPAY | PROVIDERS: PCP Nurse Practitioner Family; Visit Provider Nurse Practitioner | DX: F43.10 Post-traumatic stress disorder, unspecified (principal); F41.1 Generalized anxiety disorder | CPT/HCPCS: 99214 ==

== ENCOUNTER → 2021-01-12 07:37 | Outpatient (BNVA) | payer MEDICAID, SELFPAY | PROVIDERS: PCP Nurse Practitioner Family; Visit Provider Counselor Professional | DX: F31.62 Bipolar disorder, current episode mixed, moderate (principal); F33.1 Major depressive disorder, recurrent, moderate; F41.9 Anxiety disorder, unspecified; F41.1 Generalized anxiety disorder; F43.10 Post-traumatic stress disorder, unspecified | CPT/HCPCS: 90834 ==

== ENCOUNTER → 2021-02-21 08:19 | Outpatient (BNVA) | payer MEDICAID, SELFPAY | PROVIDERS: PCP Nurse Practitioner Family; Visit Provider Nurse Practitioner | DX: F43.10 Post-traumatic stress disorder, unspecified (principal); F41.1 Generalized anxiety disorder | CPT/HCPCS: 99214 ==

== ENCOUNTER 2021-04-07 20:58 | Emergency (ER) | payer MEDICAID, SELFPAY ==
[2021-04-07 22:13] VITALS: BP 119/74; PULSE 90; RESP 18; TEMP 36.8; O2SAT 97; BMI 39.5
--- NOTE | 2021-04-07 23:40 | ED_ITS ---
HPI - Abdominal Pain General: Chief Complaint: Abdominal Pain Stated Complaint: ABD PAIN, NAUSEA Time Seen by Provider: 04/07/21 23:40 History of Present Illness: HPI narrative: [id number] female comes in today with complaints of nausea vomiting and diarrhea with right lower quadrant abdominal pain. Patient reports poor oral intake today due to the nausea. Patient reports no abdominal surgeries except C-sections and a tubal ligation. Patient denies any vaginal bleeding or abnormal vaginal discharge. 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 Associated Symptoms: Reports diarrhea and nausea Related Data: Date of Last Menstrual Period: 08/30/20 Review of Systems General: Reports: 10 or more systems reviewed and unremarkable except in HPI and below GI: Reports: abdominal pain, nausea and diarrhea PFSH ED PFSH: Medical History Generalized anxiety disorder Post-traumatic stress disorder, unspecified Seizure disorder Patient has longstanding history of seizure disorder I do not think T seizure type activity reported under observation limb delivery was a seizure related to eclampsia her mother states that it was the same type of seizure type activity at the patient has had her whole life Social History Smoking and tobacco status: never smoked Female Reproductive History: Date of last menstrual period: 08/30/20 Physical Exam Const: COMMON NORMALS: no acute distress and patient oriented x3 GENERAL APPEARANCE: cooperative HENMT: COMMON NORMALS: normocephalic and Normal external nose present HEAD & SCALP: normal to inspection and normocephalic NOSE: Normal external nose present MOUTH: Normal oral and palatal mucosa present THROAT: posterior oropharynx normal Eye: GENERAL EYE: appearance normal, both eyes and all related structures Neck/C-Spine: COMMON NORMALS: full ROM Lymph: LYMPHATIC: no lymphadenopathy noted Chest: COMMONS NORMALS: normal inspection of the chest Resp: COMMON NORMALS: normal respiratory effort EFFORT & INSPECTION: Yes able to speak in complete sentences Cardio: COMMON NORMALS: regular rate and regular rhythm RATE: regular rate RHYTHM: regular rhythm GI: COMMON NORMALS: Soft to palpation INSPECTION: Yes normal to inspection AUSCULTATION: Yes normoactive bowel sounds PALPATION: Yes Soft to palpation and Yes Tenderness to palpation present (GI) Details: RLQ : BLADDER/KIDNEY EXAM: Yes CVA tenderness on the right Back/Pelvis: COMMON NORMALS: thoracic and lumbar spine normal to inspection GENERAL BACK: Yes CVA tenderness Extremity: COMMON NORMALS: normal to inspection Neuro: COMMON NORMALS: patient oriented x3 and moves all extremities Psych: COMMON NORMALS: mental status grossly normal and cooperative Skin: COMMON NORMALS: no rashes or lesions noted GENERAL SKIN EXAM: no rashes or lesions noted Course Vital Signs: Vital signs: Vital Signs Temperature 98.2 F 04/07/21 22:13 Pulse Rate 90 04/07/21 22:13 Respiratory Rate 18 04/07/21 22:13 Blood Pressure 119/74 04/07/21 22:13 Pulse Oximetry 97 04/07/21 22:13 MDM - Abdominal Pain MDM Narrative: Medical decision making narrative: Patient comes in today with 24-hour episode of nausea vomiting and diarrhea. On exam patient appears mildly unwell. Abdomen soft with some generalized tenderness. Skin is warm and dry. Vital signs are normal. Differential diagnosis includes but not limited to gastroenteritis, cholecystitis, appendicitis, urinary tract infection. Laboratory values were unremarkable except for some mild elevation in white blood cells 11.3. Urinalysis was clear. Patient had a negative test. Patient was given 1 L of IV fluids and some Toradol and ondansetron. Patient was able tolerate oral fluids. CT scan of the abdomen pelvis noted a teratoma in the left adnexal region of the pelvis, but otherwise was normal. Reviewed exam with patient with recommendations for treatment and follow-up. Recommended follow-up with [employer] WORKER regarding teratoma. Believe the patient probably otherwise has to some bout of gastroenteritis. Patient reports understanding agreed plan. Lab Data: Labs: Lab Results 04/08/21 04/08/21 04/08/21 Range/Units 00:15 00:20 00:30 WBC 11.3 H (4.0-10.0) 10^3/ uL RBC 5.14 (4.1-5.3) 10^6/u L Hgb 14.4 (11.5-15.3) g/dL Hct 44.2 (37.0-47.0) % MCV 86.0 (81-99) fL MCH 28.0 (28.0-34.0) pg MCHC 32.6 (30.0-36.0) g/dL RDW 13.2 (12.1-15.1) % Plt Count 245 (130-400) 10^3/c mm MPV 10.2 (7.4-10.4) fL Neut % (Auto) 86.9 % Lymph % (Auto) 5.6 % [place] % (Auto) 4.9 % Eos % (Auto) 2.0 % Baso % (Auto) 0.2 % Neut # (Auto) 9.81 H (1.8-7.7) 10^3/u L Lymph # (Auto) 0.6 L (0.8-4.8) 10^3/u L [place] # (Auto) 0.6 (0.2-0.9) 10^3/u L Eos # (Auto) 0.2 (0.0-0.8) 10^3/u L Baso # (Auto) 0.0 (0.0-0.1) 10^3/u L Nucleated RBC % (a uto) 0 % Nucleated RBCs # 0.0 /100WBC Sodium (136-145) mmol/L Potassium (3.5-5.1) mmol/L Chloride (98-107) mmol/L Carbon Dioxide (22-29) mmol/L Anion Gap (5-19) BUN (6-20) mg/dL Creatinine (0.5-0.9) mg/dL GFR Calculation (90-130) mL/min Glucose (65-115) mg/dL Calculated Osmolal ity (285-295) mOsm/k g Calcium (8.5-10.5) mg/dL Total Bilirubin (0.15-1.2) mg/dL AST (0-32) U/L ALT (0-33) U/L Alkaline Phosphata se (35-105) IU/L Total Protein (6.6-8.7) g/dL Albumin (3.5-5.2) g/dL Globulin (1.3-4.6) g/dL Lipase (13-60) U/L HCG, Qual (Negative) Urine Color Yellow (Yellow) Urine Appearance Clear (CLEAR) Urine pH 5 (5-7) Ur Specific Gravit y 1.015 (1.005-1.030) Urine Protein Neg (Negative) Urine Glucose (UA) Norm (Normal) Urine Ketones Negative (Negative) Urine Blood Neg (Negative) Urine Nitrate Negative (Negative) Urine Bilirubin Neg (Negative) Urine Urobilinogen Norm (Negative) mg/dL Ur Leukocyte Dayna ase Negative (Negative) SARS-CoV-2 Ag (Rap id) Negative (Negative) 04/08/21 04/08/21 Range/Units 00:30 00:30 WBC (4.0-10.0) 10^3/ uL RBC (4.1-5.3) 10^6/u L Hgb (11.5-15.3) g/dL Hct (37.0-47.0) % MCV (81-99) fL MCH (28.0-34.0) pg MCHC (30.0-36.0) g/dL RDW (12.1-15.1) % Plt Count (130-400) 10^3/c mm MPV (7.4-10.4) fL Neut % (Auto) % Lymph % (Auto) % [place] % (Auto) % Eos % (Auto) % Baso % (Auto) % Neut # (Auto) (1.8-7.7) 10^3/u L Lymph # (Auto) (0.8-4.8) 10^3/u L [place] # (Auto) (0.2-0.9) 10^3/u L Eos # (Auto) (0.0-0.8) 10^3/u L Baso # (Auto) (0.0-0.1) 10^3/u L Nucleated RBC % (a uto) % Nucleated RBCs # /100WBC Sodium 139 (136-145) mmol/L Potassium 4.1 (3.5-5.1) mmol/L Chloride 104 (98-107) mmol/L Carbon Dioxide 21 L (22-29) mmol/L Anion Gap 18.1 (5-19) BUN 9 (6-20) mg/dL Creatinine 0.6 (0.5-0.9) mg/dL GFR Calculation 119.9 (90-130) mL/min Glucose 91 (65-115) mg/dL Calculated Osmolal ity 286 (285-295) mOsm/k g Calcium 8.9 (8.5-10.5) mg/dL Total Bilirubin 0.4 (0.15-1.2) mg/dL AST 19 (0-32) U/L ALT 25 (0-33) U/L Alkaline Phosphata se 74 (35-105) IU/L Total Protein 7.3 (6.6-8.7) g/dL Albumin 4.2 (3.5-5.2) g/dL Globulin 3.1 (1.3-4.6) g/dL Lipase 23 (13-60) U/L HCG, Qual Negative (Negative) Urine Color (Yellow) Urine Appearance (CLEAR) Urine pH (5-7) Ur Specific Gravit y (1.005-1.030) Urine Protein (Negative) Urine Glucose (UA) (Normal) Urine Ketones (Negative) Urine Blood (Negative) Urine Nitrate (Negative) Urine Bilirubin (Negative) Urine Urobilinogen (Negative) mg/dL Ur Leukocyte Dayna ase (Negative) SARS-CoV-2 Ag (Rap id) (Negative) Discharge Plan Discharge Patient Disposition: Home Clinical Impression: Gastroenteritis, Teratoma of pelvis Condition: Stable Prescriptions: New ondansetron HCl 4 mg tablet 4 mg PO Q8H PRN (Reason: nausea and vomiting) Qty: 6 RF: 0 hydrocodone-acetaminophen 5-325 mg tablet 1 tab PO Q6H PRN (Reason: pain (scale score 7-10)) Qty: 6 RF: 0 No Action lamotrigine [Lamictal XR] 50 mg tablet extended release 24hr 50 mg PO DAILY Qty: 30 RF: 1 Lamictal XR 100 mg tablet extended release 24hr 100 mg PO DAILY@2300 30 Days Qty: 30 RF: 1 paroxetine HCl 20 mg tablet 40 mg PO BEDTIME@2100 30 Days Qty: 60 RF: 1 propranolol 20 mg tablet 20 mg PO BID@2300,1100 30 Days Qty: 60 RF: 1 trazodone 50 mg tablet 50 mg PO BEDTIME@2300 30 Days Qty: 30 RF: 1 paroxetine HCl [Paxil] 40 mg tablet 40 mg PO .HS Qty: 30 RF: 2 lisinopril 5 mg tablet 5 mg PO DAILY@2300 RF: 0 famotidine 1 tab PO DAILY PRN (Reason: Acid Reflux) RF: 0 jktvqmnmvw-osuubcekepamf-oenu [Fioricet] 50-300-40 mg capsule 1 cap PO Q6H PRN (Reason: pain) Qty: 20 RF: 0 Discharge Orders: Discharge ED (Routine); Ordered 04/08/21 Ordered By: Mir Polanco Referrals: Abbi Li FNP [Primary Care Provider] - Discharge Diet: Advance as tolerated Discharge Activity: Increase activity as tolerated Patient Instructions: Gastroenteritis (ED), Opioid Safety Activity Restrictions/Additional Instructions: Encourage plenty of fluids. Increase diet as tolerated. Activity as tolerated. Follow-up with primary care as needed. Follow-up with [employer] [facility] for abnormal CT scan with teratoma in the left pelvic area. Return to the emergency department for worsening symptoms or new concerns. Stand Alone Forms: Work/School Release Coding Level of Care Code ED Animated Cartoons Painter for Chg Fwd Exam Comprehensive
--- NOTE | 2021-04-07 23:54 | CTR_ITS ---
PROCEDURE INFORMATION: Exam: CT Abdomen And Pelvis With Contrast Exam date and time: 04/07/2021 11:54 PM Age: 25 years old Clinical indication: Nausea; Abdominal pain; Localized; Right lower quadrant (rlq); Additional info: Rlq pain, n/v/d TECHNIQUE: Imaging protocol: Computed tomography of the abdomen and pelvis with contrast. Radiation optimization: All CT scans at this facility use at least one of these dose optimization techniques: automated exposure control; mA and/or kV adjustment per patient size (includes targeted exams where dose is matched to clinical indication); or iterative reconstruction. Contrast material: OMNI 300; Contrast volume: 95 ml; Contrast route: INTRAVENOUS (IV); COMPARISON: [facility] [place] Pelvic w TV 11/17/2017 10:32 AM RADIATION DOSE METRICS: Total DLP (mGy-cm): 1963.69 FINDINGS: Lungs: The lung bases are clear. No effusion Liver: There is fatty infiltration of the liver. Gallbladder and bile ducts: No wall thickening, pericholecystic fluid or stones. Pancreas: Normal. No ductal dilation. Spleen: Normal. No splenomegaly. Adrenal glands: Normal. No mass. Kidneys and ureters: Normal. No hydronephrosis. Stomach and bowel: Unremarkable. No obstruction. No mucosal thickening. Appendix: No evidence of appendicitis. Intraperitoneal space: Unremarkable. No free air. No significant fluid collection. Vasculature: Unremarkable. No abdominal aortic aneurysm. Lymph nodes: Unremarkable. No enlarged lymph nodes. Urinary bladder: Unremarkable as visualized. Reproductive: 3.7 x 3.6 cm left adnexal lesion consisting of soft tissue in fat density. Bones/joints: Unremarkable. No acute fracture. Soft tissues: Unremarkable. CT/CT abdomen pelvis w con* [id number] IMPRESSION: 1. Fatty infiltration of the liver. 2. 3.7 x 3.6 cm left adnexal teratoma. Radiation Dose CTDIVOL = (mGy): DLP = 1963.69 (mGy-cm)
[2021-04-08 00:35] LABS: Add Urine Microscopic? NO; Charge for UA Resulting for Rev
[2021-04-08 00:41] LABS: Basophils % 0.2 %; Eosinophils # 0.2 10^3/uL (0.0-0.8); Hematocrit 44.2 % (37.0-47.0); Hemoglobin 14.4 g/dL (11.5-15.3); Lymphocytes # 0.6 10^3/uL (0.8-4.8); Lymphocytes % 5.6 %; Mean Corpuscular HGB Conc 32.6 g/dL (30.0-36.0); Mean Platelet Volume 10.2 fL (7.4-10.4); Monocytes # 0.6 10^3/uL (0.2-0.9); Monocytes % 4.9 %; Neutrophils # 9.81 10^3/uL (1.8-7.7); Neutrophils % 86.9 %; Nucleated Red Blood Cells % 0 %; Platelet Count 245 10^3/cmm (130-400); Red Blood Count 5.14 10^6/uL (4.1-5.3); Red Cell Distribution Width 13.2 % (12.1-15.1); White Blood Count 11.3 10^3/uL (4.0-10.0)
[2021-04-08 01:04] LABS: Bilirubin Urine Neg (Negative); Blood Urine Neg (Negative); Glucose Urine UA Norm (Normal); Ketones Urine Negative (Negative); Leukocyte Esterase Urine Negative (Negative); Nitrate Urine Negative (Negative); Protein Urine Neg (Negative); Specific Gravity, Urine 1.015 (1.005-1.030); Urine Appearance Clear (CLEAR); Urine Color Yellow (Yellow); Urobilinogen Urine Norm (Negative); pH Urine 5 (5-7)
[2021-04-08 01:04] LABS: HCG Qualitative Urine. Negative (Negative)
[2021-04-08] MEDS: ondansetron 2 mg/ML SDV 2 mL 4 MG IVP (01:15)
[2021-04-08] MEDS: sodium chloride 0.9% 1,000 ML 999 ML IV (01:15)
[2021-04-08] MEDS: ketorolac 30 mg/mL INJ 15 MG IVP (01:15)
[2021-04-08 01:16] LABS: SARS Covid-2 Antigen Negative (Negative)
[2021-04-08 01:29] LABS: Alanine Aminotransferase 25 U/L (0-33); Albumin Level 4.2 g/dL (3.5-5.2); Alkaline Phosphatase 74 IU/L (35-105); Anion Gap 18.1 (5-19); Aspartate Amino Transferase 19 U/L (0-32); Blood Urea Nitrogen 9 mg/dL (6-20); Calcium 8.9 mg/dL (8.5-10.5); Carbon Dioxide 21 mmol/L (22-29); Chloride 104 mmol/L (98-107); Globulin 3.1 g/dL (1.3-4.6); Glomerular Filtration Rate 119.9 mL/min (90-130); Glucose 91 mg/dL (65-115); Lipase 23 U/L (13-60); Osmolality Calculated 286 mOsm/kg (285-295); Potassium 4.1 mmol/L (3.5-5.1); Sodium 139 mmol/L (136-145); Total Bilirubin 0.4 mg/dL (0.15-1.2); Total Protein 7.3 g/dL (6.6-8.7)
[2021-04-08] MEDS: iohexol 300 mg/mL 100 mL Btl IV (01:47)
[2021-04-08 02:54] VITALS: BP 128/78; PULSE 72; RESP 20; O2SAT 98
== END 2021-04-08 02:57 | disposition home or self-care (01) ==
PROVIDERS: Emergency Medicine; Emergency Provider Nurse Practitioner Family; PCP Nurse Practitioner Family
DX: K52.9 Noninfective gastroenteritis and colitis, unspecified (principal); D39.8 Neoplasm of uncertain behavior of other specified female genital organs
CPT/HCPCS: 74177; 80053; 81003; 81025; 83690; 85025; 87426; 96361; 96374; 96375; 99284; J1885; J2405; J7030; Q9967

== ENCOUNTER → 2021-04-17 10:57 | Outpatient (BNVA) | payer MEDICAID, SELFPAY | PROVIDERS: PCP Nurse Practitioner Family; Visit Provider Nurse Practitioner | DX: S99.911A Unspecified injury of right ankle, initial encounter (principal); W13.3XXA Fall through floor, initial encounter | CPT/HCPCS: 73610; 73630 ==

== ENCOUNTER → 2021-04-25 07:05 | Outpatient (BNVA) | payer OTHER, MEDICAID, SELFPAY | PROVIDERS: PCP Nurse Practitioner Family; Visit Provider Nurse Practitioner | DX: F41.1 Generalized anxiety disorder (principal); F43.10 Post-traumatic stress disorder, unspecified | CPT/HCPCS: 99214 ==

== ENCOUNTER 2021-05-09 12:02 | Emergency (ER) | payer MEDICAID, SELFPAY ==
[2021-05-09 12:04] VITALS: BP 127/74; PULSE 67; RESP 18; O2SAT 98; BMI 41.8
--- NOTE | 2021-05-09 12:35 | XR_ITS ---
WS: [id number] Exam: XR chest 1V portable [id number] Date/Time of Exam: 05/09/2021 12:35 PM Reason For Exam: seizure Comparison 09/06/2018. Findings: The lungs are clear and fully expanded. Costophrenic angles are sharp. No infiltrates. Bronchovascula r relief appears normal. Cardiac silhouette is unremarkable. Bony elements are intact. XR/XR chest 1V portable [id number] IMPRESSION: Unremarkable chest radiograph.
--- NOTE | 2021-05-09 12:36 | W.ED.SEIZURE ---
HPI - Seizure General: Chief Complaint: Seizure Stated Complaint: SEIZURES X 2 Time Seen by Provider: 05/09/21 12:16 Source: patient, RN notes reviewed and old records reviewed Mode of arrival: ambulatory Limitations: no limitations History of Present Illness: HPI Narrative: Patient is a 25-year-old female with a history of seizures who has been on Lamictal. She has had a few seizures recently saw her primary care provider prescribed Keppra for her to start while she is waiting for her neurologist appointment. She went to [facility] pharmacy to clam picker the prescription today and after that was grocery shopping when she had 2 seizures. They were generalized tonic-clonic and lasted less than a minute each. She has a mild headache now but no other symptoms. She sometimes has seizures before her period starts and she states her period is about to start shortly. complaint: seizure Onset (ago): minute(s) (30) Description of Episode: tonic-clonic movement Duration of episode: 45 -: second(s) Witnessed: Yes - by Bystander Trauma: No Seizure History: Yes (Hx psuedo-seizures) Place: [facility] Possible Precipitating Event: none Associated symptoms: Deny chest pain, chills, confusion, cough, diaphoresis, fever(s), anorexia, malaise, rash, short of breath, syncope or weakness Treatments prior to arrival: none Review of Systems General: Reports: 10 or more systems reviewed and unremarkable except in HPI and below Const: Denies: fever(s), chills, malaise or diaphoresis Card: Denies: chest pain or syncope Neuro: Denies: confusion PFSH ED PFSH: Medical History (Reviewed 05/09/21 @ 12:39 by Jennifer Tucker MD, [facility]) Generalized anxiety disorder Post-traumatic stress disorder, unspecified Seizure disorder Patient has longstanding history of seizure disorder I do not think T seizure type activity reported under observation limb delivery was a seizure related to eclampsia her mother states that it was the same type of seizure type activity at the patient has had her whole life Social History (Reviewed 05/09/21 @ 12:39 by Jennifer Tucker MD, [facility]) Smoking and tobacco status: never smoked Female Reproductive History: Date of last menstrual period: 03/18/21 Physical Exam Const: COMMON NORMALS: no acute distress, average body habitus, patient oriented x3, no limitations, healthy appearing, alert and well nourished HENMT: COMMON NORMALS: normocephalic, atraumatic and moist oral mucous membranes HEAD & SCALP: normocephalic and atraumatic Neck/C-Spine: COMMON NORMALS: full ROM, supple, no meningeal signs, no JVD and No carotid bruits Resp: COMMON NORMALS: normal respiratory effort, No retractions, No use of accessory muscles, clear to auscultation bilaterally and percussion normal AUSCULTATION: clear to auscultation bilaterally PERCUSSION: percussion normal Cardio: COMMON NORMALS: no JVD, regular rate, regular rhythm, S1 normal heart sound present, S2 normal heart sound present, No gallops present (Cardio), No clicks present (Cardio), No murmurs present (Cardio), No rub (Cardio) and Peripheral pulses 2+ throughout RATE: regular rate RHYTHM: regular rhythm HEART SOUNDS: S1 normal heart sound present and S2 normal heart sound present PERIPHERAL PULSES: Peripheral pulses 2+ throughout GI: COMMON NORMALS: Normal to inspection, nondistended, normoactive bowel sounds present, Soft to palpation, non-tender, No hepatosplenomegaly present, no masses and no bruits PALPATION: Yes Soft to palpation and Yes No hepatosplenomegaly present Extremity: COMMON NORMALS: normal to inspection, full ROM, capillary refill normal, no calf tenderness and no pedal edema Neuro: COMMON NORMALS: patient oriented x3 SENSORIUM/ORIENTATION: Yes alert MENINGEAL SIGNS: Yes no meningeal signs Skin: COMMON NORMALS: no rashes or lesions noted, no wounds, turgor normal, no jaundice, no petechiae and no mottling GENERAL SKIN EXAM: no rashes or lesions noted and turgor normal Course Reevaluation(s): Reevaluation #1: Discussed her lab and imaging findings with her. Unremarkable. No repeat seizures in the emergency department. We will discharge her home with no new orders as she already has a prescription for Keppra that she filled today. She voiced understanding and is in agreement with the plan. Time: 14:14 Vital Signs: Vital signs: Vital Signs Pulse Rate 62 05/09/21 14:23 Respiratory Rate 18 05/09/21 14:23 Blood Pressure 114/64 05/09/21 14:23 Pulse Oximetry 96 08/25/21 14:23 MDM - Seizure MDM Narrative: Medical decision making narrative: 25-year-old female with a history of seizure disorder who had 2 seizures today. Her seizures have not been under control recently and her primary care provider ordered Keppra for her. She filled the prescription today but has not started taking the medication. While she was at the grocery store she had 2 seizures and was brought in here to be evaluated. In the emergency department evaluation was unremarkable, she was given a loading dose of intravenous Keppra and she is discharged home with no new orders. Medical Records: Attestation: I reviewed the patient's medical records. Lab Data: Attestation: I reviewed the patient's lab results. Labs: Lab Results 05/09/21 05/09/21 05/09/21 Range/Units 12:30 12:30 12:30 WBC 7.8 (4.0-10.0) 10^3/ uL RBC 4.43 (4.1-5.3) 10^6/u L Hgb 12.8 (11.5-15.3) g/dL Hct 38.8 (37.0-47.0) % MCV 87.6 (81-99) fl MCH 28.9 (28.0-34.0) pg MCHC 33.0 (30.0-36.0) g/dL RDW 12.9 (12.1-15.1) % Plt Count 256 (130-400) 10^3/c mm MPV 10.1 (7.4-10.4) fL Neut % (Auto) 67.6 % Lymph % (Auto) 22.9 % [place] % (Auto) 8.0 % Eos % (Auto) 0.5 % Baso % (Auto) 0.4 % Neut # (Auto) 5.26 (1.8-7.7) 10^3/u L Lymph # (Auto) 1.8 (0.8-4.8) 10^3/u L [place] # (Auto) 0.6 (0.2-0.9) 10^3/u L Eos # (Auto) 0.0 (0.0-0.8) 10^3/u L Baso # (Auto) 0.0 (0.0-0.1) 10^3/u L Nucleated RBC % (a uto) 0 % Nucleated RBCs # 0.0 /100WBC Sodium 137 (136-145) mmol/L Potassium 3.5 (3.5-5.1) mmol/L Chloride 103 (98-107) mmol/L Carbon Dioxide 22 (22-29) mmol/L Anion Gap 15.5 (5-19) BUN 8 (6-20) mg/dL Creatinine 0.5 (0.5-0.9) mg/dL GFR Calculation 148.0 H (90-130) mL/min Glucose 93 (65-115) mg/dL Calculated Osmolal ity 282 L (285-295) mOsm/k g Calcium 8.6 (8.5-10.5) mg/dL Magnesium 2.0 (1.7-2.3) mg/dL Total Bilirubin 0.4 (0.15-1.2) mg/dL AST 21 (0-32) U/L ALT 29 (0-33) U/L Alkaline Phosphata se 60 (35-105) IU/L Creatine Kinase 51 (26-192) U/L Total Protein 6.8 (6.6-8.7) g/dL Albumin 4.0 (3.5-5.2) g/dL Globulin 2.8 (1.3-4.6) g/dL TSH 1.61 (0.27-4.20) uIU/ mL HCG, Qual Negative (Negative) Urine Color (Yellow) Urine Appearance (CLEAR) Urine pH (5-7) Ur Specific Gravit y (1.005-1.030) Urine Protein (Negative) Urine Glucose (UA) (Normal) Urine Ketones (Negative) Urine Blood (Negative) Urine Nitrate (Negative) Urine Bilirubin (Negative) Urine Urobilinogen (Negative) mg/dL Ur Leukocyte Dayna ase (Negative) 05/09/21 Range/Units 13:09 WBC (4.0-10.0) 10^3/ uL RBC (4.1-5.3) 10^6/u L Hgb (11.5-15.3) g/dL Hct (37.0-47.0) % MCV (81-99) fl MCH (28.0-34.0) pg MCHC (30.0-36.0) g/dL RDW (12.1-15.1) % Plt Count (130-400) 10^3/c mm MPV (7.4-10.4) fL Neut % (Auto) % Lymph % (Auto) % [place] % (Auto) % Eos % (Auto) % Baso % (Auto) % Neut # (Auto) (1.8-7.7) 10^3/u L Lymph # (Auto) (0.8-4.8) 10^3/u L [place] # (Auto) (0.2-0.9) 10^3/u L Eos # (Auto) (0.0-0.8) 10^3/u L Baso # (Auto) (0.0-0.1) 10^3/u L Nucleated RBC % (a uto) % Nucleated RBCs # /100WBC Sodium (136-145) mmol/L Potassium (3.5-5.1) mmol/L Chloride (98-107) mmol/L Carbon Dioxide (22-29) mmol/L Anion Gap (5-19) BUN (6-20) mg/dL Creatinine (0.5-0.9) mg/dL GFR Calculation (90-130) mL/min Glucose (65-115) mg/dL Calculated Osmolal ity (285-295) mOsm/k g Calcium (8.5-10.5) mg/dL Magnesium (1.7-2.3) mg/dL Total Bilirubin (0.15-1.2) mg/dL AST (0-32) U/L ALT (0-33) U/L Alkaline Phosphata se (35-105) IU/L Creatine Kinase (26-192) U/L Total Protein (6.6-8.7) g/dL Albumin (3.5-5.2) g/dL Globulin (1.3-4.6) g/dL TSH (0.27-4.20) uIU/ mL HCG, Qual (Negative) Urine Color Yellow (Yellow) Urine Appearance Clear (CLEAR) Urine pH 6 (5-7) Ur Specific Gravit y 1.020 (1.005-1.030) Urine Protein Neg (Negative) Urine Glucose (UA) Norm (Normal) Urine Ketones Negative (Negative) Urine Blood Neg (Negative) Urine Nitrate Negative (Negative) Urine Bilirubin 1+ H (Negative) Urine Urobilinogen 4 H (Negative) mg/dL Ur Leukocyte Dayna ase Negative (Negative) Imaging Data^: CXR: Attestation: I personally reviewed and interpreted this imaging study as follows: Radiologist's impression: [address] [id number] ReportSigned Patient: Hiwot Naranjo #: [id number]: 1995Acct#:[id number]/Sex: 25 / FADM Date: 05/09/21Loc: ERRoom/Bed:Attending Dr: Ordering Provider/Ordering MD: Jennifer Tucker MD, [facility] Date of Service: 05/09/21 Procedure(s): XR chest 1V portable [id number] Accession Number(s): [id number] Report Number: [id number] WS: [id number] Exam: XR chest 1V portable [id number] Date/Time of Exam: 05/09/2021 12:35 PM Reason For Exam: seizure Comparison 09/06/2018. Findings: The lungs are clear and fully expanded. Costophrenic angles are sharp. No infiltrates. Bronchovascular relief appears normal. Cardiac silhouette is unremarkable. Bony elements are intact. XR/XR chest 1V portable [id number] IMPRESSION: Unremarkable chest radiograph. Dictated By:Antonio Nunn By:Antonio Nunn Date/Time:05/09/21 1244DD/ 1243 Discharge Plan Discharge Patient Disposition: Home Clinical Impression: Seizure Condition: Stable Prescriptions: Continued lisinopril 5 mg tablet 5 mg PO DAILY@09 RF: 0 ondansetron HCl 4 mg tablet 4 mg PO Q8H PRN (Reason: nausea and vomiting) Qty: 6 RF: 0 Keppra 500 mg Tablet 500 mg PO BID RF: 0 bstnnloutt-enezjjtmjcbfa-wlwp 50-325-40 mg Tablet 1 tab PO Q4H PRN (Reason: Migraine Headache) RF: 0 famotidine 20 mg Tablet 20 mg PO DAILY RF: 0 baclofen 10 mg Tablet 10 mg PO TID PRN (Reason: Muscle Spasm) RF: 0 trazodone 100 mg tablet 100 mg PO BEDTIME@09 RF: 0 paroxetine HCl 20 mg tablet 40 mg PO BEDTIME@ RF: 0 propranolol 20 mg tablet 20 mg PO BID@ RF: 0 Lamictal XR 50 mg tablet extended release 24hr 50 mg PO DAILY@ RF: 0 Lamictal XR 100 mg tablet extended release 24hr 100 mg PO DAILY@ RF: 0 Discharge Orders: Discharge ED (Routine); Ordered 05/09/21 Ordered By: Jennifer Tucker Referrals: Guillermo,YOLI GoP [Primary Care Provider] - 1-3 days Discharge Diet: Usual diet Discharge Activity: Increase activity as tolerated Patient Instructions: Recurrent Seizures Adult (ED) Activity Restrictions/Additional Instructions: Return for any new or worsening symptoms. Follow-up with your primary care provider within 3 days. Continue your home medications including the Keppra. Stand Alone Forms: Work/School Release Coding Level of Care Code ED Qc Lab Technician for Jose Fwd Exam Comprehensive
[2021-05-09 12:46] LABS: Basophils % 0.4 %; Eosinophils % 0.5 %; Hematocrit 38.8 % (37.0-47.0); Hemoglobin 12.8 g/dL (11.5-15.3); Lymphocytes # 1.8 10^3/uL (0.8-4.8); Lymphocytes % 22.9 %; Mean Corpuscular Hemoglobin 28.9 pg (28.0-34.0); Mean Corpuscular Volume 87.6 fl (81-99); Mean Platelet Volume 10.1 fL (7.4-10.4); Monocytes # 0.6 10^3/uL (0.2-0.9); Neutrophils # 5.26 10^3/uL (1.8-7.7); Neutrophils % 67.6 %; Nucleated Red Blood Cells % 0 %; Platelet Count 256 10^3/cmm (130-400); Red Blood Count 4.43 10^6/uL (4.1-5.3); Red Cell Distribution Width 12.9 % (12.1-15.1); White Blood Count 7.8 10^3/uL (4.0-10.0)
[2021-05-09 13:02] LABS: HCG, Serum Qual Negative (Negative)
[2021-05-09 13:15] LABS: Alanine Aminotransferase 29 U/L (0-33); Alkaline Phosphatase 60 IU/L (35-105); Anion Gap 15.5 (5-19); Aspartate Amino Transferase 21 U/L (0-32); Blood Urea Nitrogen 8 mg/dL (6-20); Calcium 8.6 mg/dL (8.5-10.5); Carbon Dioxide 22 mmol/L (22-29); Chloride 103 mmol/L (98-107); Creatine Phosphokinase 51 U/L (26-192); Globulin 2.8 g/dL (1.3-4.6); Glucose 93 mg/dL (65-115); Osmolality Calculated 282 mOsm/kg (285-295); Potassium 3.5 mmol/L (3.5-5.1); Sodium 137 mmol/L (136-145); Thyroid Stimulating Hormone 1.61 uIU/mL (0.27-4.20); Total Bilirubin 0.4 mg/dL (0.15-1.2); Total Protein 6.8 g/dL (6.6-8.7)
[2021-05-09 13:16] LABS: Add Urine Microscopic? NO; Charge for UA Resulting for Rev
[2021-05-09 13:21] LABS: Bilirubin Urine 1+ (Negative); Blood Urine Neg (Negative); Glucose Urine UA Norm (Normal); Ketones Urine Negative (Negative); Leukocyte Esterase Urine Negative (Negative); Nitrate Urine Negative (Negative); Protein Urine Neg (Negative); Urine Appearance Clear (CLEAR); Urine Color Yellow (Yellow); Urobilinogen Urine 4 mg/dL (Negative); pH Urine 6 (5-7)
[2021-05-09 13:31] VITALS: BP 125/75; PULSE 60; RESP 18; O2SAT 98
--- NOTE | 2021-05-09 13:31 | PC.PHAR ---
PT STATES SHE TAKES CARE OF HER OWN MEDICATIONS-PT STATES SHE PICKED UP HER KEPPRA RX TODAY BUT HASNT STARTED TAKING IT YET-PT STATES SHE IS SUPPOSE TO TAKE MEDS AT 23:00 PT STATES SHE WORKS OVER NIGHTS SO SHE TAKES AT 09:00AM-NOTES ARE MADE IN THE PHARMACY COMMENTS
[2021-05-09 14:23] VITALS: BP 114/64; PULSE 62; RESP 18; O2SAT 96
== END 2021-05-09 14:35 | disposition home or self-care (01) ==
PROVIDERS: Emergency Provider Family Medicine; PCP Nurse Practitioner Family
DX: G40.909 Epilepsy, unspecified, not intractable, without status epilepticus (principal)
CPT/HCPCS: 71045; 80053; 81003; 82550; 83735; 84443; 84703; 85025; 96374; 99284; J1953

== ENCOUNTER 2021-12-16 16:23 | Emergency (ER) | payer MEDICAID, SELFPAY ==
--- NOTE | 2021-12-16 16:27 | XRR_ITS ---
PROCEDURE INFORMATION: Exam: XR Right Foot Exam date and time: 12/16/2021 5:17 PM Age: 26 years old Clinical indication: Right; Patient HX: C/O R foot pain w HX of FX TECHNIQUE: Imaging protocol: XR Right foot. Views: 3 or more views. COMPARISON: No relevant prior studies available. FINDINGS: Bones/joints: Minimal distal Achilles tendon degenerative calcification. Soft tissues: Normal. XR/XR foot RT min 3V* [id number] IMPRESSION: 1. Negative for fracture or dislocation. 2. Minimal distal Achilles tendon degenerative calcification.
[2021-12-16 16:35] VITALS: BP 133/84; PULSE 64; RESP 18; TEMP 36.2; O2SAT 98; BMI 41.1
--- NOTE | 2021-12-16 16:46 | W.ED.EXTPRO ---
HPI - Extremity Problem General: Chief complaint: Extremity Problem,Nontraumatic Stated complaint: right foot injury Time Seen by Provider: 12/16/21 16:44 History of Present Illness: 26-year-old female comes in today with complaints of right foot pain. Patient denies any injury. Patient does have a history of fracture of the foot. Patient reports over the last 2 days she has had increasing pain and discomfort at work with ambulating. Patient has tried an elastic bandage to the foot with minimal to no relief. Weightbearing increases pain and discomfort. MD Complaint: extremity pain (Right foot) Onset (ago): day(s) Relieving factors: rest Exacerbating factors: weight bearing Associated symptoms: Deny chest pain, fever(s) or rash Review of Systems General: Reports: 10 or more systems reviewed and unremarkable except in HPI and below Const: Denies: fever(s) Card: Denies: chest pain Resp: Denies: dyspnea GI: Denies: vomiting Musc: Reports: extremity pain Skin/Breast: Denies: rash PFSH ED PFSH: Medical History Generalized anxiety disorder Post-traumatic stress disorder, unspecified Seizure disorder Patient has longstanding history of seizure disorder I do not think T seizure type activity reported under observation limb delivery was a seizure related to eclampsia her mother states that it was the same type of seizure type activity at the patient has had her whole life Social History Smoking and tobacco status: never smoked Female Reproductive History: Date of last menstrual period: 03/18/21 Physical Exam Const: COMMON NORMALS: alert HENMT: COMMON NORMALS: normocephalic HEAD & SCALP: normocephalic Neck/C-Spine: COMMON NORMALS: full ROM Resp: COMMON NORMALS: normal respiratory effort Cardio: COMMON NORMALS: regular rate RATE: regular rate Extremity: RIGHT LOWER EXTREMITY: Yes foot & digits (Tenderness to palpation of the dorsal lateral foot.) Right foot and digits: Yes inspection, Yes palpation, Yes ROM and Yes neurovascular exam Neuro: SENSORIUM/ORIENTATION: Yes alert Course Vital Signs: Vital signs: Vital Signs Temperature 97.2 F L 12/16/21 16:35 Pulse Rate 64 12/16/21 16:35 Respiratory Rate 18 12/16/21 16:35 Blood Pressure 133/84 12/16/21 16:35 Pulse Oximetry 98 12/16/21 16:35 MDM - Extremity (Nontraumatic) Medical Decision Making 26-year-old female presents with pain to the right foot. On exam patient has tenderness to palpation of the lateral right foot. Patient also has some plantar fascial tenderness to point touch. Normal cap refill and sensation. No obvious deformity. Differential diagnosis includes but not limited to sprain, tendinitis, plantar fasciitis. X-ray noted no acute abnormality. Reviewed exam with patient we will treat for tendinitis with prednisone. Patient was also recommended use acetaminophen and ibuprofen for further pain. Encourage the use of supportive shoes and rest as needed. Patient reported understanding agreed to plan. Discharge Plan Discharge Patient Disposition: Home Clinical Impression: Foot pain, right, Tendinitis of ankle or foot Condition: Stable Prescriptions: New prednisone 20 mg tablet 20 mg PO BID 5 Days Qty: 10 0RF No Action lisinopril 5 mg tablet 5 mg PO DAILY@09 0RF ondansetron HCl 4 mg tablet 4 mg PO Q8H PRN (Reason: nausea and vomiting) Qty: 6 0RF Keppra 500 mg Tablet 500 mg PO BID 0RF ubmtlnbkdf-vyxoynhztucin-lukm 50-325-40 mg Tablet 1 tab PO Q4H PRN (Reason: Migraine Headache) 0RF famotidine 20 mg Tablet 20 mg PO DAILY 0RF baclofen 10 mg Tablet 10 mg PO TID PRN (Reason: Muscle Spasm) 0RF trazodone 100 mg tablet 100 mg PO BEDTIME@09 0RF paroxetine HCl 20 mg tablet 40 mg PO BEDTIME@09 0RF propranolol 20 mg tablet 20 mg PO BID@ 0RF Lamictal XR 50 mg tablet extended release 24hr 50 mg PO DAILY@09 0RF Rx Instructions: take with Lamictal XR 100mg daily Lamictal XR 100 mg tablet extended release 24hr 100 mg PO DAILY@09 0RF Discharge Orders: Discharge ED (Routine); Ordered 12/16/21 Ordered By: Mir Polanco Referrals: Abbi Li FNP [Primary Care Provider] - Discharge Diet: Usual diet Discharge Activity: Increase activity as tolerated Patient Instructions: Musculoskeletal Pain (ED), Opioid Safety Activity Restrictions/Additional Instructions: Home and rest. Use acetaminophen and ibuprofen for pain. Wear a good supportive shoe. A tight elastic wrap may be beneficial to help with pain. You can try elastic bands specific for plantar fasciitis that may be helpful for your pain. Some specialized shoes may be more beneficial for your discomfort. Follow-up with podiatry for further instructions and care. Return to emergency department for new concerns. Follow-up with primary care as needed. Take steroid with food to help avoid stomach upset. Stand Alone Forms: Work/School Release Coding Level of Care Code ED Varnish Maker Helper for Jose Fwkelsea Exam Detailed
[2021-12-16] MEDS: predniSONE 20 mg Tablet 60 MG PO (17:37)
[2021-12-16 17:38] VITALS: BP 119/80; PULSE 69; RESP 17; TEMP 36.3; O2SAT 99
== END 2021-12-16 17:43 | disposition home or self-care (01) ==
PROVIDERS: Emergency Provider Nurse Practitioner Family; PCP Nurse Practitioner Family
DX: M77.51 Other enthesopathy of right foot and ankle (principal)
CPT/HCPCS: 73630; 99283; J7512

== ENCOUNTER 2022-03-10 21:19 | Emergency (ER) | payer MEDICAID, SELFPAY ==
[2022-03-10 21:22] VITALS: BP 149/84; PULSE 70; RESP 17; TEMP 36.6; O2SAT 98; BMI 32.3
--- NOTE | 2022-03-10 21:44 | CTR_ITS ---
PROCEDURE INFORMATION: Exam: CT Head Without Contrast Exam date and time: 03/10/2022 10:58 PM Age: 26 years old Clinical indication: Injury or trauma; Blunt trauma (contusions or hematomas); Patient HX: Syncopal episode with fall at home. C/O head, neck, and back pain. History of seizures. ; Additional info: Syncope fall headache TECHNIQUE: Imaging protocol: Computed tomography of the head without contrast. Radiation optimization: All CT scans at this facility use at least one of these dose optimization techniques: automated exposure control; mA and/or kV adjustment per patient size (includes targeted exams where dose is matched to clinical indication); or iterative reconstruction. COMPARISON: CT head wo con* [id number] 04/03/2019 4:19 PM RADIATION DOSE METRICS: Total DLP (mGy-cm): 939.46 FINDINGS: Brain: Normal. No hemorrhage. Unremarkable white matter. No mass effect. Cerebral ventricles: No ventriculomegaly. Paranasal sinuses: Minimal mucosal thickening and fluid is seen within the ethmoidal sinuses. New Mastoid air cells: Visualized mastoid air cells are well aerated. Bones/joints: Unremarkable. No acute fracture. Soft tissues: Unremarkable. CT/CT head wo con* [id number] IMPRESSION: There are no acute intracranial findings.
--- NOTE | 2022-03-10 21:44 | XRR_ITS ---
PROCEDURE INFORMATION: Exam: XR Right Shoulder Exam date and time: 03/10/2022 10:02 PM Age: 26 years old Clinical indication: Injury or trauma; Fall; Blunt trauma (contusions or hematomas); Shoulder; Right; Additional info: Fall shoulder pain TECHNIQUE: Imaging protocol: Radiologic exam of the Right shoulder. Views: 2 or more views. COMPARISON: CR XR chest 1V portable [id number] 05/09/2021 12:35 PM FINDINGS: Bones/joints: No acute fracture. No dislocation. Normal bone mineralization. No joint effusion. Joint spaces are maintained. Soft tissues: No soft tissue swelling. No radiopaque foreign body. The patient has a right nipple piercing. XR/XR shoulder RT min 2V* [id number] IMPRESSION: 1. No acute fracture of the right shoulder. Followup imaging recommended in 7-14 days if clinical concern for fracture persists. 2. Incidental/nonacute findings are listed in the report.
--- NOTE | 2022-03-10 21:44 | XRR_ITS ---
PROCEDURE INFORMATION: Exam: XR Right Elbow Exam date and time: 03/10/2022 10:09 PM Age: 26 years old Clinical indication: Injury or trauma; Fall; Blunt trauma (contusions or hematomas); Elbow; Right; Additional info: Fall shoulder pain TECHNIQUE: Imaging protocol: Radiologic exam of the Right elbow. Views: 3 or more views. COMPARISON: CR (CHEST, ) 03/10/2022 10:02 PM FINDINGS: Bones/joints: No dislocation. Normal bone mineralization. No joint effusion. Joint spaces are maintained. Evaluation is limited as a true lateral image was not obtained. Otherwise, no acute fracture of the right elbow. Soft tissues: No soft tissue swelling. No radiopaque foreign body. XR/XR elbow RT min 3V* [id number] IMPRESSION: Evaluation is limited as a true lateral image was not obtained. Otherwise, no acute fracture of the right elbow. Followup imaging recommended in 7-14 days if clinical concern for fracture persists.
--- NOTE | 2022-03-10 21:44 | CTR_ITS ---
PROCEDURE INFORMATION: Exam: CT Cervical Spine Without Contrast Exam date and time: 03/10/2022 11:01 PM Age: 26 years old Clinical indication: Injury or trauma; Blunt trauma; Patient HX: Syncopal episode with fall at home. C/O head, neck, and back pain. History of seizures. ; Additional info: Syncope fall neck pain TECHNIQUE: Imaging protocol: Computed tomography of the cervical spine without contrast. Radiation optimization: All CT scans at this facility use at least one of these dose optimization techniques: automated exposure control; mA and/or kV adjustment per patient size (includes targeted exams where dose is matched to clinical indication); or iterative reconstruction. COMPARISON: CT Cervical Spine wo* [id number] 04/03/2019 4:23 PM RADIATION DOSE METRICS: Total DLP (mGy-cm): 767.43 FINDINGS: Bones/joints: No acute fracture. Normal alignment. Discs/Spinal canal/Neural foramina: No significant disc protrusion. No severe spinal canal stenosis. No significant neural foraminal narrowing. Lungs: Lung apices are normal. Soft tissues: Unremarkable. CT/CT cervical spin wo con* [id number] IMPRESSION: No acute findings.
[2022-03-10] MEDS: sodium chloride 0.9% 1,000 ML 999 ML IV (21:49)
[2022-03-10 22:07] LABS: Basophils % 0.4 %; Eosinophils # 0.1 10^3/uL (0.0-0.8); Eosinophils % 1.3 %; Hematocrit 38.3 % (37.0-47.0); Hemoglobin 12.9 g/dL (11.5-15.3); Lymphocytes # 2.6 10^3/uL (0.8-4.8); Lymphocytes % 33.6 %; Mean Corpuscular HGB Conc 33.7 g/dL (30.0-36.0); Mean Corpuscular Hemoglobin 28.7 pg (28.0-34.0); Mean Corpuscular Volume 85.1 fl (81-99); Mean Platelet Volume 10.6 fL (7.4-10.4); Monocytes # 0.5 10^3/uL (0.2-0.9); Monocytes % 6.6 %; Neutrophils # 4.49 10^3/uL (1.8-7.7); Neutrophils % 57.5 %; Nucleated Red Blood Cells % 0 %; Platelet Count 325 10^3/cmm (130-400); Red Cell Distribution Width 12.4 % (12.1-15.1); White Blood Count 7.8 10^3/uL (4.0-10.0)
[2022-03-10 22:19] LABS: HCG, Serum Qual Negative (Negative)
[2022-03-10 22:25] LABS: Alanine Aminotransferase 23 U/L (0-33); Albumin Level 4.3 g/dL (3.5-5.2); Alkaline Phosphatase 68 IU/L (35-105); Anion Gap 16.1 (5-19); Aspartate Amino Transferase 18 U/L (0-32); Blood Urea Nitrogen 9 mg/dL (6-20); Carbon Dioxide 21 mmol/L (22-29); Chloride 107 mmol/L (98-107); Globulin 2.9 g/dL (1.3-4.6); Glomerular Filtration Rate 99.6 mL/min (90-130); Glucose 143 mg/dL (65-115); Osmolality Calculated 293 mOsm/kg (285-295); Phosphorus 2.4 mg/dL (2.5-4.5); Potassium 3.1 mmol/L (3.5-5.1); Sodium 141 mmol/L (136-145); Total Bilirubin 0.2 mg/dL (0.15-1.2); Total Protein 7.2 g/dL (6.6-8.7)
[2022-03-10 22:26] LABS: Alcohol Level < 10 mg/dL (0-10)
--- NOTE | 2022-03-10 22:57 | CTR_ITS ---
PROCEDURE INFORMATION: Exam: CT Lumbar Spine Without Contrast Exam date and time: 03/10/2022 11:05 PM Age: 26 years old Clinical indication: Injury or trauma; Blunt trauma (contusions or hematomas); Patient HX: Syncopal episode with fall at home. C/O head, neck, and back pain. History of seizures. ; Additional info: Syncope fall low back pain TECHNIQUE: Imaging protocol: Computed tomography of the lumbar spine without contrast. Sagittal, oblique axial, and coronal reformatted images were created and reviewed. Radiation optimization: All CT scans at this facility use at least one of these dose optimization techniques: automated exposure control; mA and/or kV adjustment per patient size (includes targeted exams where dose is matched to clinical indication); or iterative reconstruction. COMPARISON: [facility] Lumbar Spine 2-3 views 06/21/2016 11:17 AM RADIATION DOSE METRICS: Total DLP (mGy-cm): 2060.93 FINDINGS: Bones/joints: Vertebral body height is maintained. No acute fracture. Discs/Spinal canal/Neural foramina: No significant disc protrusion. No severe spinal canal stenosis. No significant neural foraminal narrowing. Kidneys and ureters: Nonobstructing stone in the right kidney measuring 2.1 mm. Vasculature: No evidence for aortic aneurysm. Soft tissues: No paravertebral soft tissue abnormality. No radiopaque foreign body. CT/CT lumbar spine wo con* [id number] IMPRESSION: 1. No acute fracture of the lumbar spine. 2. Nonobstructing right renal stone.
[2022-03-10 23:10] VITALS: RESP 16
[2022-03-10] MEDS: morphine 4 mg/mL SDV 1 mL IVP (23:10)
[2022-03-10] MEDS: ondansetron 2 mg/ML SDV 2 mL 4 MG IVP (23:11)
[2022-03-10 23:18] VITALS: BP 125/85; PULSE 66; RESP 18; O2SAT 98
--- NOTE | 2022-03-10 23:25 | ECG_ITS ---
[facility] Test Date: 2022-03-10 Pat Name: Hiwot Naranjo Department: Room: Gender: Female Boring Inspector: : 1995 Requested By: Philip Foster Order Number: [id number] Kelley MD: Markos Marx M.D. Measurements Intervals [place] Rate: 56 P: 40 NM: 172 QRS: 42 QRSD: 96 T: 59 QT: 433 QTc: 418 Interpretive Statements SINUS BRADYCARDIA Compared to ECG 04/03/2019 15:38:01 Sinus rhythm no longer present Sinus arrhythmia no longer present Electronically Signed On 03-11-2022 17:33:00 CDT by Markos Marx M.D. [email or web address] medical [email or web address] Careersclevel[facility] clinic [facility] for rehabilitationSpanning Cloud [id number]
[2022-03-10 23:34] LABS: Add Urine Microscopic? NO; Charge for UA Resulting for Rev
--- NOTE | 2022-03-10 23:39 | PC.NURSE ---
C Collar removed per physician
[2022-03-10 23:42] LABS: Bilirubin Urine Neg (Negative); Blood Urine Neg (Negative); Glucose Urine UA Norm (Normal); Ketones Urine Negative (Negative); Leukocyte Esterase Urine Negative (Negative); Nitrate Urine Negative (Negative); Protein Urine Neg (Negative); Specific Gravity, Urine 1.015 (1.005-1.030); Urine Appearance Clear (CLEAR); Urine Color Yellow (Yellow); Urobilinogen Urine Norm (Negative); pH Urine 7 (5-7)
[2022-03-10 23:56] VITALS: BP 161/78; PULSE 58; RESP 18; O2SAT 98
[2022-03-10] MEDS: potassium chloride oral liq 20 mEq/15 mL UDC 40 MEQ PO (23:59)
[2022-03-11 00:09] VITALS: BP 152/82; PULSE 59; RESP 15; O2SAT 98
--- NOTE | 2022-03-12 01:56 | W.ED.FALL ---
HPI - Fall General: Chief Complaint: Fall Stated Complaint: FALL Time Seen by Provider: 03/10/22 21:31 Source: patient and family History of Present Illness: 26 year old female with a history of seizure disorder. She doesn't remember the event, but notes that she passed out in the hallway at home. She states her seizures are usually tonic-clonic type seizures. However, her mother states that she has had seizures where she just loses consciousness. This episode lasted a few minutes. She remembers EMS arrival, but has amnesia of the events prior. She does not believe that she was symptomatic in any way beforehand. She notes that she must have injured her head neck and low back when she fell from the standing position, because she's experiencing pain in these areas. She is also experiencing radicular type pain into her right upper extremity, particularly the shoulder in the elbow. No weakness, no numbness or tingling. MD complaint: fall and other Onset (ago): minute(s) Fall from: standing Fall witnessed: yes, by family Place fall occurred: home Loss of consciousness: Yes Length of LOC: minutes(s) Prolonged down time: no Symptoms prior to fall: none Context: seizure Location of injury: head, neck and back Location of injury - extremities: Right: shoulder and elbow Associated symptoms-after fall: Reports headache(s) and neck pain; Denies abdominal pain or chest pain Review of Systems Const: Denies: fever(s) or chills Eyes: Denies: change in vision ENMT: Denies: throat pain Card: Denies: chest pain Resp: Denies: dyspnea, productive cough or non-productive cough GI: Reports: nausea; Denies: abdominal pain or vomiting : Denies: flank pain Musc: Reports: neck pain, back pain and extremity pain Skin/Breast: Denies: rash Neuro: Reports: headache(s); Denies: numbness in extremities or weakness in extremities PFSH ED PFSH: Medical History Generalized anxiety disorder Post-traumatic stress disorder, unspecified Seizure disorder Patient has longstanding history of seizure disorder I do not think T seizure type activity reported under observation limb delivery was a seizure related to eclampsia her mother states that it was the same type of seizure type activity at the patient has had her whole life Social History Smoking and tobacco status: never smoked Female Reproductive History: Date of last menstrual period: 03/18/21 Physical Exam Const: COMMON NORMALS: no acute distress GENERAL APPEARANCE: cooperative; not ill appearing NUTRITIONAL APPEARANCE: obese HENMT: COMMON NORMALS: normocephalic, atraumatic and Normal external nose present HEAD & SCALP: normocephalic and atraumatic FACE & SINUS: normal facial exam and face symmetric NOSE: Normal external nose present MOUTH: tongue normal THROAT: posterior oropharynx normal Eye: COMMON NORMALS: Equal, round and reactive pupils present and EOMs intact bilaterally PUPIL: Yes Equal, round and reactive pupils present Neck/C-Spine: GENERAL: Yes trachea midline CERVICAL SPINE: Yes Cervical spine tenderness Chest: CHEST: Yes Symmetrical chest wall rise Resp: COMMON NORMALS: normal respiratory effort, No retractions, No use of accessory muscles and clear to auscultation bilaterally AUSCULTATION: clear to auscultation bilaterally Cardio: COMMON NORMALS: regular rate and regular rhythm RATE: regular rate RHYTHM: regular rhythm GI: COMMON NORMALS: Normal to inspection, nondistended, normoactive bowel sounds present and Soft to palpation PALPATION: Yes Soft to palpation : COMMON NORMALS: Yes no CVA tenderness BLADDER/KIDNEY EXAM: Yes no CVA tenderness Back/Pelvis: COMMON NORMALS: no CVA tenderness Extremity: COMMON NORMALS: normal to inspection NARRATIVE EXTREMITY EXAM: Examination of the right upper extremity reveals tenderness along the anterior shoulder and the elbow. There is no deformity. There is pain with range of motion. Neuro: REA COMA SCALE: document GCS findings Rea coma scale eye opening: Spontaneous [place] coma scale verbal response: Orientated Rea coma scale motor response: Obey commands Rea coma scale total score: 15 CRANIAL NERVES: Yes CN normal except as noted SPEECH: speech normal SENSORY EXAM: Yes extremities (intact) Psych: COMMON NORMALS: mental status grossly normal and Normal thought process present THOUGHT PROCESS: Normal thought process present Course Vital Signs: Vital signs: Vital Signs Temperature 98 F 03/10/22 21:22 Pulse Rate 59 L 03/11/22 00:09 Respiratory Rate 15 03/11/22 00:09 Blood Pressure 152/82 03/11/22 00:09 Pulse Oximetry 98 03/11/22 00:09 MDM - Fall Medical Decision Making Patients potassium is 3.1, and is repleted. Other laboratory is benign. Head CT, cervical spine CT, lumbar spine CT's are normal. Right shoulder and right elbow X rays are normal as well. She has returned to baseline. This is most likely a seizure without tonic movements. She is loaded with 500 milligrams of Keppra, because she is only on 500 milligrams twice daily. As she has returned to baseline, she will be discharge to home. Follow up with neurology. Lab Data : 03/10/22 21:25 03/10/22 21:25 Radiology Impressions Cervical Spine CT 03/10/22:44 IMPRESSION: No acute findings. Elbow X-Ray 03/10/22:44 IMPRESSION: Evaluation is limited as a true lateral image was not obtained. Otherwise, no acute fracture of the right elbow. Followup imaging recommended in 7-14 days if clinical concern for fracture persists. Head CT 03/10/22:44 IMPRESSION: There are no acute intracranial findings. Shoulder X-Ray 03/10/22:44 IMPRESSION: 1. No acute fracture of the right shoulder. Followup imaging recommended in 7-14 days if clinical concern for fracture persists. 2. Incidental/nonacute findings are listed in the report. Lumbar Spine CT 03/10/22 22:57 IMPRESSION: 1. No acute fracture of the lumbar spine. 2. Nonobstructing right renal stone. Laboratory Results WBC 7.8 10^3/uL (4.0-10.0) 03/10/22 21: RBC 4.50 10^6/uL (4.1-5.3) 03/10/22 21: Hgb 12.9 g/dL (11.5-15.3) 03/10/22 21:25 Hct 38.3 % (37.0-47.0) 03/10/22 21: MCV 85.1 fl (81-99) 03/10/22 21: MCH 28.7 pg (28.0-34.0) 03/10/22 21: MCHC 33.7 g/dL (30.0-36.0) 03/10/22 21: RDW 12.4 % (12.1-15.1) 03/10/22: Plt Count 325 10^3/cmm (130-400) 06/26/22 21:25 MPV 10.6 fL (7.4-10.4) H 03/10/22 21:25 Neut % (Auto) 57.5 % 03/10/22 21: Lymph % (Auto) 33.6 % 03/10/22 21:25 [place] % (Auto) 6.6 % 03/10/22 21:25 Eos % (Auto) 1.3 % 03/10/22 21:25 Baso % (Auto) 0.4 % 03/10/22 21:25 Neut # (Auto) 4.49 10^3/uL (1.8-7.7) 03/10/22: Lymph # (Auto) 2.6 10^3/uL (0.8-4.8) 03/10/22: [place] # (Auto) 0.5 10^3/uL (0.2-0.9) 03/10/22: Eos # (Auto) 0.1 10^3/uL (0.0-0.8) 03/10/22: Baso # (Auto) 0.0 10^3/uL (0.0-0.1) 03/10/22: Nucleated RBC % (auto) 0 % 03/10/22: Nucleated RBCs # 0.0 /100WBC 03/10/22 21:25 Sodium 141 mmol/L (136-145) 03/10/22 21:25 Potassium 3.1 mmol/L (3.5-5.1) L 03/10/22 21: Chloride 107 mmol/L (98-107) 03/10/22 21:25 Carbon Dioxide 21 mmol/L (22-29) L 03/10/22 21:25 Anion Gap 16.1 (5-19) 03/10/22 21:25 BUN 9 mg/dL (6-20) 03/10/22 21:25 Creatinine 0.7 mg/dL (0.5-0.9) 03/10/22 21:25 GFR Calculation 99.6 mL/min (90-130) 03/10/22 21:25 Glucose 143 mg/dL (65-115) H 03/10/22 21:25 Calculated Osmolality 293 mOsm/kg (285-295) 03/10/22 21:25 Calcium 9.0 mg/dL (8.5-10.5) 03/10/22 21:25 Phosphorus 2.4 mg/dL (2.5-4.5) L 03/10/22 21:25 Magnesium 2.0 mg/dL (1.7-2.3) 03/10/22 21:25 Total Bilirubin 0.2 mg/dL (0.15-1.2) 03/10/22 21:25 AST 18 U/L (0-32) 03/10/22 21:25 ALT 23 U/L (0-33) 03/10/22 21:25 Alkaline Phosphatase 68 IU/L (35-105) 03/10/22 21:25 Total Protein 7.2 g/dL (6.6-8.7) 03/10/22 21: Albumin 4.3 g/dL (3.5-5.2) 03/10/22 21: Globulin 2.9 g/dL (1.3-4.6) 03/10/22 21:25 HCG, Qual Negative (Negative) 03/10/22 21:25 Urine Color Yellow (Yellow) 03/10/22 23:32 Urine Appearance Clear (CLEAR) 03/10/22 23:32 Urine pH 7 (5-7) 03/10/22 23:32 Ur Specific [place] 1.015 (1.005-1.030) 03/10/22 23:32 Urine Protein Neg (Negative) 03/10/22 23:32 Urine Glucose (UA) Norm (Normal) 03/10/22 23:32 Urine Ketones Negative (Negative) 03/10/22 23:32 Urine Blood Neg (Negative) 03/10/22 23:32 Urine Nitrate Negative (Negative) 03/10/22 23:32 Urine Bilirubin Neg (Negative) 03/10/22 23:32 Urine Urobilinogen Norm mg/dL (Negative) 03/10/22 23:32 Ur Leukocyte Esterase Negative (Negative) 03/10/22 23:32 Ethyl Alcohol < 10 mg/dL (0-10) 03/10/22 21:25 Discharge Plan Discharge Patient Disposition: Home Clinical Impression: Syncope, Neck muscle strain, Low back pain Condition: Stable Prescriptions: New ketorolac 10 mg tablet 10 mg PO TID PRN (Reason: pain) Qty: 10 0RF No Action lisinopril 5 mg tablet 5 mg PO DAILY@09 0RF ondansetron HCl 4 mg tablet 4 mg PO Q8H PRN (Reason: nausea and vomiting) Qty: 6 0RF Keppra 500 mg Tablet 500 mg PO BID 0RF ulhexjvpvd-ztrhvpzgxparm-npdv 50-325-40 mg Tablet 1 tab PO Q4H PRN (Reason: Migraine Headache) 0RF famotidine 20 mg Tablet 20 mg PO DAILY 0RF baclofen 10 mg Tablet 10 mg PO TID PRN (Reason: Muscle Spasm) 0RF trazodone 100 mg tablet 100 mg PO BEDTIME@09 0RF paroxetine HCl 20 mg tablet 40 mg PO BEDTIME@09 0RF propranolol 20 mg tablet 20 mg PO BID@, 0RF Lamictal XR 50 mg tablet extended release 24hr 50 mg PO DAILY@09 0RF Rx Instructions: take with Lamictal XR 100mg daily Lamictal XR 100 mg tablet extended release 24hr 100 mg PO DAILY@09 0RF Discharge Orders: Discharge ED (Routine); Ordered 03/11/22 Ordered By: Philip Boykin Referrals: Guillermo,Abbi, SCIENTIFIC ASSOCIATE [Primary Care Provider] - 1-3 days Patient Instructions: Syncope (ED) Activity Restrictions/Additional Instructions: Return for repeated episodes of syncope or passing out, chest discomfort, repeated seizures, any other concerning symptoms. Coding Level of Care Code ED Internet Specialist for Jose Haines
== END 2022-03-11 00:12 | disposition home or self-care (01) ==
PROVIDERS: Emergency Provider Emergency Medicine; PCP Nurse Practitioner Family
DX: R55 Syncope and collapse (principal); M54.50 Low back pain, unspecified; S16.1XXA Strain of muscle, fascia and tendon at neck level, initial encounter; W18.30XA Fall on same level, unspecified, initial encounter
CPT/HCPCS: 70450; 72125; 72131; 73030; 73080; 80053; 80307; 81003; 83735; 84100; 84703; 85025; 93005; 96365; 96375; 99285; J1953; J2270; J2405; J7030

== ENCOUNTER 2022-06-04 00:16 | Emergency (ER) | payer MEDICAID, SELFPAY ==
[2022-06-04 00:28] VITALS: BP 187/93; PULSE 60; RESP 18; TEMP 36.8; O2SAT 99; BMI 38.7
--- NOTE | 2022-06-04 01:59 | W.ED.ABDPA2 ---
HPI - Abdominal Pain General: Chief Complaint: Abdominal Pain Stated Complaint: Vaginal Pain\Lower Back Pain Time Seen by Provider: 06/04/22 00:43 Source: patient Mode of arrival: ambulatory Limitations: no limitations History of Present Illness: See nursing assessment. Patient with complaints of suprapubic cramping and dysuria for the past 4 days. She states she started having hematuria yesterday. She denies any fever. She states the superpubic cramping caused her to have nausea with vomiting this evening prior to arrival to the ER. She is developed some mild right flank pain today. She has a possible history of urinary tract infections but denies any history of kidney infections. Past surgical history includes C-sections x3. She denies any allergies to medications. She continues having dysuria and subpubic abdominal pain. She is currently mildly nauseated. Associated Symptoms: Reports GI cramping, dysuria, nausea and vomiting; Denies chills, constipation, diarrhea, fever(s) and hematochezia Related Data: Date of Last Menstrual Period: 03/18/21 Review of Systems Const: Denies: fever(s) or chills Eyes: Denies: change in vision ENMT: Denies: throat pain Card: Denies: chest pain or palpitations Resp: Denies: dyspnea or wheezing GI: Reports: abdominal pain (Suprapubic), nausea, vomiting and GI cramping; Denies: diarrhea, constipation or hematochezia : Reports: flank pain, dysuria, urinary frequency and urinary urgency Musc: Reports: other (Mild right flank pain); Denies: neck pain Skin/Breast: Denies: rash, pruritus or erythema Neuro: Denies: headache(s), numbness in extremities or weakness in extremities Psych: Denies: anxiety Asim/Lymph: Denies: enlarged lymph nodes PFSH ED PFSH: Medical History Generalized anxiety disorder Post-traumatic stress disorder, unspecified Seizure disorder Patient has longstanding history of seizure disorder I do not think T seizure type activity reported under observation limb delivery was a seizure related to eclampsia her mother states that it was the same type of seizure type activity at the patient has had her whole life Social History Smoking and tobacco status: never smoked Female Reproductive History: Date of last menstrual period: 03/18/21 : 3 Physical Exam Const: COMMON NORMALS: no acute distress, patient oriented x3, alert and well nourished GENERAL APPEARANCE: cooperative OTHER: Morbid obesity HENMT: COMMON NORMALS: normocephalic and atraumatic HEAD & SCALP: normocephalic and atraumatic Eye: COMMON NORMALS: EOMs intact bilaterally Neck/C-Spine: COMMON NORMALS: full ROM, no lymphadenopathy, supple and no JVD Lymph: LYMPHATIC: no lymphadenopathy noted Chest: COMMONS NORMALS: normal inspection of the chest and normal palpation of entire chest wall Resp: COMMON NORMALS: normal respiratory effort, No retractions, No use of accessory muscles and clear to auscultation bilaterally AUSCULTATION: clear to auscultation bilaterally Cardio: COMMON NORMALS: no JVD, regular rate, regular rhythm and Peripheral pulses 2+ throughout RATE: regular rate RHYTHM: regular rhythm PERIPHERAL PULSES: Peripheral pulses 2+ throughout GI: COMMON NORMALS: Normal to inspection, nondistended, normoactive bowel sounds present and Soft to palpation PALPATION: Yes Soft to palpation OTHER: Moderate superpubic abdominal pain. No masses palpated. No pulsatile masses. No bruits. No guarding or rebound. : OTHER: Mild right CVA tenderness. No rash. Back/Pelvis: OTHER: No midline spinal pain. Extremity: COMMON NORMALS: normal to inspection and full ROM Neuro: COMMON NORMALS: patient oriented x3, CN's II-XII intact bilaterally, moves all extremities, no focal motor deficits and no sensory deficits noted SENSORIUM/ORIENTATION: Yes alert Psych: COMMON NORMALS: mental status grossly normal, Normal thought process present, cooperative, normal affect and speech normal SPEECH: Yes normal speech THOUGHT PROCESS: Normal thought process present Skin: COMMON NORMALS: no rashes or lesions noted GENERAL SKIN EXAM: no rashes or lesions noted Course Vital Signs: Vital signs: Vital Signs Temperature 98.3 F 06/04/22 00:28 Pulse Rate 49 L 06/04/22 02:16 Respiratory Rate 16 06/04/22 02:16 Blood Pressure 171/97 06/04/22 02:16 Pulse Oximetry 99 06/04/22 02:16 Oxygen Delivery Me thod 06/04/22 02:16 MDM - Abdominal Pain Medical Decision Making Symptoms consistent with urinary tract infection. Lab Data Labs/Radiology: Laboratory Results Urine Color Yellow (Yellow) 06/04/22 01:21 Urine Appearance Clear (CLEAR) 06/04/22 01:21 Urine pH 6 (5-7) 06/04/22 01:21 Ur Specific [place] 1.020 (1.005-1.030) 06/04/22 01:21 Urine Protein 1+ (Negative) H 06/04/22 01:21 Urine Glucose (UA) Norm (Normal) 06/04/22 01:21 Urine Ketones 1+ (Negative) H 06/04/22 01:21 Urine Blood 3+ (Negative) H 06/04/22 01:21 Urine Nitrate Negative (Negative) 06/04/22 01:21 Urine Bilirubin Neg (Negative) 06/04/22 01:21 Urine Urobilinogen Norm mg/dL (Negative) 06/04/22 01:21 Ur Leukocyte Esterase Trace (Negative) H 06/04/22 01:21 Urine RBC Too numerous to cnt /hpf (0-2) H 06/04/22 01:21 Urine WBC 5-10 /hpf (0-5) H 06/04/22 01:21 Ur Squamous Epith Cells 0-4 /hpf (0-5) H 06/04/22 01:21 Amorphous Sediment 1+ /hpf 06/04/22 01:21 Urine Bacteria 2+ /hpf (NONE) H 06/04/22 01:21 Discharge Plan Discharge Patient Disposition: Home Clinical Impression: Abdominal pain, suprapubic Urinary tract infection Qualifiers: Urinary tract infection type: acute cystitis Hematuria presence: with hematuria Qualified Code(s): N30.01 - Acute cystitis with hematuria Condition: Stable Prescriptions: New hydrocodone-acetaminophen 5-325 mg tablet 1 tab PO Q6H PRN (Reason: pain) Qty: 8 0RF cephalexin 500 mg capsule 500 mg PO QID 7 Days Qty: 28 0RF Rx Instructions: for infection ondansetron 4 mg tablet,disintegrating 4 mg PO Q6H PRN (Reason: nausea and vomiting) Qty: 10 1RF Pyridium 200 mg tablet 200 mg PO Q8H PRN (Reason: pain) Qty: 10 1RF No Action lisinopril 5 mg tablet 5 mg PO DAILY@09 ondansetron HCl 4 mg tablet 4 mg PO Q8H PRN (Reason: nausea and vomiting) Qty: 6 0RF Keppra 500 mg Tablet 500 mg PO BID [id number]-qvvurkhtrncra-ikrx 50-325-40 mg Tablet 1 tab PO Q4H PRN (Reason: Migraine Headache) famotidine 20 mg Tablet 20 mg PO DAILY baclofen 10 mg Tablet 10 mg PO TID PRN (Reason: Muscle Spasm) trazodone 100 mg tablet 100 mg PO BEDTIME@09 paroxetine HCl 20 mg tablet 40 mg PO BEDTIME@09 propranolol 20 mg tablet 20 mg PO BID@, Lamictal XR 50 mg tablet extended release 24hr 50 mg PO DAILY@09 Rx Instructions: take with Lamictal XR 100mg daily Lamictal XR 100 mg tablet extended release 24hr 100 mg PO DAILY@09 ketorolac 10 mg tablet 10 mg PO TID PRN (Reason: pain) Qty: 10 0RF Discharge Orders: Discharge ED (Routine); Ordered 06/04/22 Ordered By: Roe Gamble Referrals: Guillermo,YOLI GoP [Primary Care Provider] - 1-3 days (for recheck.) Discharge Diet: Usual diet Discharge Activity: Increase activity as tolerated Patient Instructions: Urinary Tract Infection in Women (ED), Abdominal Pain (ED), Opioid Safety, Pain Management Activity Restrictions/Additional Instructions: Start cephalexin antibiotic and approximately 16 hours. Drink plenty of water. Pyridium will make your urine orange. Follow-up with your family doctor later this week for recheck. Return if symptoms worsen. Coding Level of Care Code ED Customer Experience Professional for Jose Fwd Exam Comprehensive
[2022-06-04 02:05] LABS: Urine Appearance Clear (CLEAR); Urine Color Yellow (Yellow)
[2022-06-04 02:06] LABS: Protein Urine 1+ (Negative); pH Urine 6 (5-7)
[2022-06-04 02:07] LABS: Blood Urine 3+ (Negative); Glucose Urine UA Norm (Normal); Ketones Urine 1+ (Negative); Nitrate Urine Negative (Negative)
[2022-06-04 02:08] LABS: Amorphous Sediment Urine 1+ /hpf; Bacteria Urine 2+ /hpf; Bilirubin Urine Neg (Negative); Leukocyte Esterase Urine Trace (Negative); RBC Urine TOO NUMEROUS TO CNT /hpf (0-2); Squamous Epithelial Cell Urine 0-4 /hpf (0-5); Urobilinogen Urine Norm (Negative)
[2022-06-04 02:09] LABS: Add Urine Culture? No
[2022-06-04] MEDS: ondansetron 4 MG Tablet PO (02:14)
[2022-06-04] MEDS: HYDROcodone-acetaminophen 5-325 mg Tablet 1 TAB PO (02:14)
[2022-06-04 02:16] VITALS: BP 171/97; PULSE 49; RESP 16; O2SAT 99
[2022-06-04] MEDS: cefTRIAXone 1,000 MG in lidocaine 1% 2.1 ML 1 MG IM (03:09)
== END 2022-06-04 03:13 | disposition home or self-care (01) ==
PROVIDERS: Emergency Provider Family Medicine; PCP Nurse Practitioner Family
DX: N30.01 Acute cystitis with hematuria (principal)
CPT/HCPCS: 81001; 87086; 87491; 87591; 96372; J0696; Q0162

== ENCOUNTER → 2022-07-25 13:32 | Outpatient (BNVA) | payer MEDICAID, SELFPAY | PROVIDERS: PCP Nurse Practitioner Family; Visit Provider Registered Nurse Neonatal Intensive Care | DX: J02.9 Acute pharyngitis, unspecified (principal); J06.9 Acute upper respiratory infection, unspecified | CPT/HCPCS: 87070; 87071; 87880 ==

== ENCOUNTER 2022-08-18 21:14 | Emergency (ER) | payer MEDICAID, SELFPAY ==
[2022-08-18 21:20] VITALS: BMI 39.2
[2022-08-18 21:24] VITALS: BP 148/77; PULSE 88; RESP 16; TEMP 37.2; O2SAT 99
[2022-08-18 21:54] VITALS: BP 107/59; PULSE 75; RESP 18; O2SAT 98
--- NOTE | 2022-08-18 22:03 | XRR_ITS ---
PROCEDURE INFORMATION: Exam: XR Chest Exam date and time: 08/18/2022 10:21 PM Age: 27 years old Clinical indication: Cough; Additional info: Cough, seizure TECHNIQUE: Imaging protocol: Radiologic exam of the chest. Views: 1 view. COMPARISON: CR XR chest 1V portable [id number] 05/09/2021 12:35 PM FINDINGS: Lungs: Unremarkable. No consolidation. Pleural spaces: Unremarkable. No pleural effusion. No pneumothorax. Heart/Mediastinum: Unremarkable. No cardiomegaly. Bones/joints: Unremarkable. XR/XR chest 1V portable [id number] IMPRESSION: No acute findings.
[2022-08-18 22:17] LABS: Basophils % 0.4 %; Eosinophils # 0.1 10^3/uL (0.0-0.8); Hematocrit 42.1 % (37.0-47.0); Hemoglobin 13.7 g/dL (11.5-15.3); Lymphocytes # 2.4 10^3/uL (0.8-4.8); Lymphocytes % 29.7 %; Mean Corpuscular HGB Conc 32.5 g/dL (30.0-36.0); Mean Corpuscular Hemoglobin 29.1 pg (28.0-34.0); Mean Corpuscular Volume 89.6 fl (81-99); Mean Platelet Volume 10.3 fL (7.4-10.4); Monocytes # 0.7 10^3/uL (0.2-0.9); Monocytes % 8.5 %; Nucleated Red Blood Cells % 0 %; Platelet Count 313 10^3/cmm (130-400); Red Cell Distribution Width 12.3 % (12.1-15.1); White Blood Count 8.2 10^3/uL (4.0-10.0)
[2022-08-18] MEDS: sodium chloride 0.9% 1,000 ML 999 ML IV (22:26)
[2022-08-18 22:35] LABS: Alanine Aminotransferase 30 U/L (0-33); Albumin Level 4.4 g/dL (3.5-5.2); Alkaline Phosphatase 65 U/L (35-105); Anion Gap 14.6 (5-19); Aspartate Amino Transferase 21 U/L (0-32); Blood Urea Nitrogen 7 mg/dL (6-20); Calcium 9.3 mg/dL (8.5-10.5); Carbon Dioxide 25 mmol/L (22-29); Chloride 105 mmol/L (98-107); Creatine Phosphokinase 77 U/L (26-192); Creatinine Clr Calc Pharmacy 149.1426; Globulin 3.2 g/dL (1.3-4.6); Glomerular Filtration Rate 98.9 mL/min (90-130); Glucose 100 mg/dL (65-115); Magnesium 2.2 mg/dL (1.7-2.3); Osmolality Calculated 290 mOsm/kg (285-295); Phosphorus 1.7 mg/dL (2.5-4.5); Potassium 3.6 mmol/L (3.5-5.1); Sodium 141 mmol/L (136-145); Total Bilirubin 0.3 mg/dL (0.15-1.2); Total Protein 7.6 g/dL (6.6-8.7)
[2022-08-18 22:54] VITALS: BP 134/74; PULSE 70; RESP 18; O2SAT 98
[2022-08-18 22:59] LABS: Add Urine Microscopic? NO; Charge for UA Resulting for Rev
--- NOTE | 2022-08-18 23:08 | W.ED.SEIZURE ---
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 She has not had a seizure in 5.5 months or so she says. She was at work, and had a syncopal episode there. As she began to recover from this, she began to have more tonic-clonic type movements. She does not remember the episode necessarily. She complains of a headache now, and some mild confusion, but is nearly back to baseline. She is worried that she may be dehydrated, as she has been ill with upper respiratory illness for the past week or so. complaint: seizure Onset (ago): minute(s) Description of Episode: loss of consciousness and tonic-clonic movement -: second(s) Witnessed: Yes - by Bystander Seizure History: Yes (psuedoseizures) Place: Work Associated symptoms: Reports confusion and syncope; Deny chest pain, cough, fever(s), anorexia or weakness Treatments prior to arrival: none Review of Systems Const: Denies: fever(s) Eyes: Denies: change in vision ENMT: Reports: throat pain Card: Reports: syncope; Denies: chest pain Resp: Reports: non-productive cough; Denies: dyspnea GI: Reports: nausea; Denies: abdominal pain or vomiting Neuro: Reports: confusion PFSH ED PFSH: Medical History Generalized anxiety disorder Post-traumatic stress disorder, unspecified Seizure disorder Patient has longstanding history of seizure disorder I do not think T seizure type activity reported under observation limb delivery was a seizure related to eclampsia her mother states that it was the same type of seizure type activity at the patient has had her whole life Social History Smoking and tobacco status: never smoked Female Reproductive History: Date of last menstrual period: 08/04/22 Physical Exam Const: COMMON NORMALS: no acute distress and alert GENERAL APPEARANCE: cooperative; not ill appearing and not frail appearing NUTRITIONAL APPEARANCE: obese HENMT: COMMON NORMALS: normocephalic, atraumatic and Normal external nose present HEAD & SCALP: normocephalic and atraumatic FACE & SINUS: normal facial exam and face symmetric NOSE: Normal external nose present Eye: COMMON NORMALS: Equal, round and reactive pupils present and EOMs intact bilaterally PUPIL: Yes Equal, round and reactive pupils present Neck/C-Spine: GENERAL: Yes trachea midline Chest: CHEST: Yes Symmetrical chest wall rise Resp: COMMON NORMALS: normal respiratory effort, No retractions, No use of accessory muscles and clear to auscultation bilaterally AUSCULTATION: clear to auscultation bilaterally Cardio: COMMON NORMALS: regular rate and regular rhythm RATE: regular rate RHYTHM: regular rhythm GI: COMMON NORMALS: Normal to inspection, nondistended, normoactive bowel sounds present Extremity: COMMON NORMALS: no pedal edema Neuro: REA COMA SCALE: document GCS findings [place] coma scale eye opening: Spontaneous Rea coma scale verbal response: Orientated [place] coma scale motor response: Obey commands [place] coma scale total score: 15 SENSORIUM/ORIENTATION: Yes alert CRANIAL NERVES: Yes CN normal except as noted COORDINATION/BALANCE: [id number] test normal SPEECH: speech normal SENSORY EXAM: Yes extremities (intact) MOTOR EXAM: Pronator motor function not present and Normal motor muscle tone present throughout COORDINATION: [id number]-[id number] test normal Psych: COMMON NORMALS: cooperative and speech normal SPEECH: Yes normal speech Skin: COMMON NORMALS: no rashes or lesions noted GENERAL SKIN EXAM: no rashes or lesions noted Course Vital Signs: Vital signs: Vital Signs Temperature 98.9 F 08/18/22 21:24 Pulse Rate 58 L 08/18/22 23:28 Respiratory Rate 18 08/18/22 23:28 Blood Pressure 128/78 08/18/22 23:28 Pulse Oximetry 98 08/18/22 23:28 Oxygen Delivery Me thod 08/18/22 22:54 MDM - Seizure MDM Narrative Medical decision making narrative: Patient came back to baseline rather quickly. She has been seen before in the ER for these types of episodes. She requested IV fluids, as she believes she may be dehydrated. Laboratory testing shows a normal CBC and BMP. Phosphorus is mildly low. Urinalysis is negative. Chest x-ray is negative. She is loaded with 500 mg of Keppra, which is helped her in the past. She will contact her neurologist this week. She will be allowed home. Lab Data 08/18/22 21:26 08/18/22 21:26 Labs: Radiology Impressions Chest X-Ray 08/18/22 22:03 IMPRESSION: No acute findings. Laboratory Results WBC 8.2 10^3/uL (4.0-10.0) 08/18/22 21: RBC 4.70 10^6/uL (4.1-5.3) 08/18/22 21: Hgb 13.7 g/dL (11.5-15.3) 08/18/22 21: Hct 42.1 % (37.0-47.0) 08/18/22 21: MCV 89.6 fl (81-99) 08/18/22 21: MCH 29.1 pg (28.0-34.0) 08/18/22 21: MCHC 32.5 g/dL (30.0-36.0) 08/18/22 21: RDW 12.3 % (12.1-15.1) 08/18/22 21: Plt Count 313 10^3/cmm (130-400) 08/18/22 21: MPV 10.3 fL (7.4-10.4) 08/18/22 21: Neut % (Auto) 60.0 % 08/18/22 21: Lymph % (Auto) 29.7 % 08/18/22 21: [place] % (Auto) 8.5 % 08/18/22 21: Eos % (Auto) 1.0 % 08/18/22 21: Baso % (Auto) 0.4 % 08/18/22 21: Neut # (Auto) 4.90 10^3/uL (1.8-7.7) 08/18/22 21: Lymph # (Auto) 2.4 10^3/uL (0.8-4.8) 08/18/22 21: [place] # (Auto) 0.7 10^3/uL (0.2-0.9) 08/18/22 21: Eos # (Auto) 0.1 10^3/uL (0.0-0.8) 08/18/22 21: Baso # (Auto) 0.0 10^3/uL (0.0-0.1) 08/18/22 21:26 Nucleated RBC % (auto) 0 % 08/18/22 21:26 Nucleated RBCs # 0.0 /100WBC 08/18/22 21:26 Sodium 141 mmol/L (136-145) 08/18/22 21:26 Potassium 3.6 mmol/L (3.5-5.1) 08/18/22 21:26 Chloride 105 mmol/L (98-107) 08/18/22 21:26 Carbon Dioxide 25 mmol/L (22-29) 08/18/22 21:26 Anion Gap 14.6 (5-19) 08/18/22 21:26 BUN 7 mg/dL (6-20) 08/18/22 21:26 Creatinine 0.7 mg/dL (0.5-0.9) 08/18/22 21: GFR Calculation 98.9 mL/min (90-130) 08/18/22 21:26 Glucose 100 mg/dL (65-115) 08/18/22 21:26 Calculated Osmolality 290 mOsm/kg (285-295) 08/18/22 21:26 Calcium 9.3 mg/dL (8.5-10.5) 08/18/22 21:26 Phosphorus 1.7 mg/dL (2.5-4.5) L 08/18/22 21:26 Magnesium 2.2 mg/dL (1.7-2.3) 08/18/22 21:26 Total Bilirubin 0.3 mg/dL (0.15-1.2) 08/18/22 21:26 AST 21 U/L (0-32) 08/18/22 21: ALT 30 U/L (0-33) 08/18/22 21:26 Alkaline Phosphatase 65 U/L (35-105) 08/18/22 21:26 Creatine Kinase 77 U/L (26-192) 08/18/22 21:26 Total Protein 7.6 g/dL (6.6-8.7) 08/18/22 21:26 Albumin 4.4 g/dL (3.5-5.2) 08/18/22 21:26 Globulin 3.2 g/dL (1.3-4.6) 08/18/22 21:26 Urine Color Yellow (Yellow) 08/18/22 22:30 Urine Appearance Cloudy (CLEAR) A 08/18/22 22:30 Urine pH 7 (5-7) 08/18/22 22:30 Ur Specific [place] 1.010 (1.005-1.030) 08/18/22 22:30 Urine Protein Neg (Negative) 08/18/22 22:30 Urine Glucose (UA) Norm (Normal) 08/18/22 22:30 Urine Ketones Negative (Negative) 08/18/22 22:30 Urine Blood Neg (Negative) 08/18/22 22:30 Urine Nitrate Negative (Negative) 08/18/22 22:30 Urine Bilirubin Neg (Negative) 08/18/22 22:30 Urine Urobilinogen Neg mg/dL (Negative) 08/18/22 22:30 Ur Leukocyte Esterase Negative (Negative) 08/18/22 22:30 Discharge Plan Discharge Patient Disposition: Home Clinical Impression: Generalized seizure Condition: Stable Prescriptions: No Action lisinopril 5 mg tablet 5 mg PO DAILY@09 ondansetron HCl 4 mg tablet 4 mg PO Q8H PRN (Reason: nausea and vomiting) Qty: 6 0RF Keppra 500 mg Tablet 500 mg PO BID jmnacidguc-sfrtexytxeiib-xljd 50-325-40 mg Tablet 1 tab PO Q4H PRN (Reason: Migraine Headache) famotidine 20 mg Tablet 20 mg PO DAILY baclofen 10 mg Tablet 10 mg PO TID PRN (Reason: Muscle Spasm) trazodone 100 mg tablet 100 mg PO BEDTIME@09 paroxetine HCl 20 mg tablet 40 mg PO BEDTIME@09 propranolol 20 mg tablet 20 mg PO BID@ Lamictal XR 50 mg tablet extended release 24hr 50 mg PO DAILY@09 Rx Instructions: take with Lamictal XR 100mg daily Lamictal XR 100 mg tablet extended release 24hr 100 mg PO DAILY@09 ketorolac 10 mg tablet 10 mg PO TID PRN (Reason: pain) Qty: 10 0RF hydrocodone-acetaminophen 5-325 mg tablet 1 tab PO Q6H PRN (Reason: pain) Qty: 8 0RF ondansetron 4 mg tablet,disintegrating 4 mg PO Q6H PRN (Reason: nausea and vomiting) Qty: 10 1RF Pyridium 200 mg tablet 200 mg PO Q8H PRN (Reason: pain) Qty: 10 1RF Discharge Orders: Discharge ED (Routine); Ordered 08/18/22 Ordered By: Philip Boykin Referrals: Abbi Li FNP [Primary Care Provider] - Patient Instructions: Recurrent Seizures in Adults (ED) Activity Restrictions/Additional Instructions: Make sure you are getting plenty of rest. Stay hydrated. Return for repeated episodes of seizure, worsening mental status, weakness, other concerning symptoms. Your laboratory was normal, and your chest x-ray did not reveal pneumonia this evening. Follow-up with neurology since it has been quite some time since your last seizure. Coding Level of Care Code ED [employer] for Jose Haines
[2022-08-18 23:28] VITALS: BP 128/78; PULSE 58; RESP 18; O2SAT 98
[2022-08-18 23:42] LABS: Bilirubin Urine Neg (Negative); Blood Urine Neg (Negative); Glucose Urine UA Norm (Normal); Ketones Urine Negative (Negative); Leukocyte Esterase Urine Negative (Negative); Nitrate Urine Negative (Negative); Protein Urine Neg (Negative); Urine Appearance Cloudy (CLEAR); Urine Color Yellow (Yellow); Urobilinogen Urine Neg (Negative); pH Urine 7 (5-7)
== END 2022-08-18 23:29 | disposition home or self-care (01) ==
PROVIDERS: Emergency Provider Emergency Medicine; PCP Nurse Practitioner Family
DX: G40.89 Other seizures (principal)
CPT/HCPCS: 71045; 80053; 81003; 82550; 83735; 84100; 85025; 96365; 99284; J1953; J7030

== ENCOUNTER 2023-10-03 15:01 | Emergency (ER) | payer MEDICAID, SELFPAY ==
[2023-10-03 15:39] VITALS: BP 135/84; PULSE 73; RESP 16; TEMP 36.7; O2SAT 99
--- NOTE | 2023-10-03 16:05 | W.ED.HA ---
HPI - Headache General: Chief Complaint: Headache Stated Complaint: tremors, head pain Time Seen by Provider: 10/03/23 15:53 Source: patient Mode of arrival: ambulatory Limitations: no limitations History of Present Illness: Patient is a 28-year-old female with a history of migraine and nonepileptic seizures here for complaints of a headache. Patient states she has chronic migraines. She is on migraine medications prescribed to her by her neurologist in [place] but states she still has migraines most days of the month. She states she believes her migraines then trigger her nonepileptic seizures. Patient tells me she has a MRI scheduled for next week. She had one back in 2016 that was normal. She reportedly has had many CT scans since then which have been normal. MD elicited complaint: headache and migraine Pertinent past history: migraines Onset (ago): day(s) Onset description: gradually Severity: severe Pain scale (0-10): 10 Exacerbating factors: none Relieving factors: nothing Associated symptoms: Deny chest pain, confusion, fever(s), malaise, nausea, rash or vomiting Treatments prior to arrival: migraine medication Review of Systems Const: Denies: fever(s), chills, body aches, fatigue or malaise Eyes: Denies: change in vision, blurry vision, photophobia, floaters or seeing flashes Card: Denies: chest pain Resp: Denies: dyspnea GI: Denies: abdominal pain, nausea or vomiting Musc: Denies: neck pain, back pain, extremity pain or joint pain Skin/Breast: Denies: rash Neuro: Reports: headache(s) and other (occasional tremors-chronic); Denies: numbness in extremities, weakness in extremities, sensory changes, difficulty walking, dizziness, vertigo or confusion PFSH ED PFSH: Medical History Generalized anxiety disorder Post-traumatic stress disorder, unspecified Seizure disorder Patient has longstanding history of seizure disorder I do not think T seizure type activity reported under observation limb delivery was a seizure related to eclampsia her mother states that it was the same type of seizure type activity at the patient has had her whole life Social History Smoking and tobacco/nicotine status: never used tobacco/nicotine Physical Exam Const: COMMON NORMALS: no acute distress, patient oriented x3, no limitations and alert GENERAL APPEARANCE: cooperative NUTRITIONAL APPEARANCE: obese morbidly obese ORIENTATION/CONSCIOUSNESS: Yes awake, Yes oriented to person, Yes oriented to place and Yes oriented to time HENMT: COMMON NORMALS: normocephalic and atraumatic HEAD & SCALP: normal to inspection, normocephalic and atraumatic Eye: GENERAL EYE: appearance normal, both eyes and all related structures and normal light reflex DIRECT OPHTHALMOSCOPY: Yes normal light reflex Neck/C-Spine: COMMON NORMALS: full ROM, no lymphadenopathy and no meningeal signs Resp: COMMON NORMALS: normal respiratory effort Cardio: COMMON NORMALS: regular rate and regular rhythm RATE: regular rate RHYTHM: regular rhythm Extremity: GENERAL: Yes normal exam except as noted Neuro: REA COMA SCALE: document GCS findings [place] coma scale eye opening: Spontaneous [place] coma scale verbal response: Orientated [place] coma scale motor response: Obey commands [place] coma scale total score: 15 COMMON NORMALS: patient oriented x3, CN's II-XII intact bilaterally, moves all extremities, no focal motor deficits, no sensory deficits noted and gait normal SENSORIUM/ORIENTATION: Yes alert, Yes oriented to person, Yes oriented to place and Yes oriented to time MENINGEAL SIGNS: Yes no meningeal signs Skin: COMMON NORMALS: no rashes or lesions noted GENERAL SKIN EXAM: no rashes or lesions noted Course Vital Signs: Vital signs: Vital Signs Temperature 98.1 F 10/03/23 15:39 Pulse Rate 73 10/03/23 15:39 Respiratory Rate 16 10/03/23 15:39 Blood Pressure 135/84 10/03/23 15:39 Pulse Oximetry 99 10/03/23 15:39 Oxygen Delivery Me thod Room Air 10/03/23 15:39 MDM - Headache Medical Decision Making Patient states headache is starting to feel better after IV medications and fluids. She will be allowed discharge. Return ED precautions given. Otherwise she can follow-up with her neurologist. Differential Diagnosis Likely migraine Medical Records I reviewed the patient's medical records. No radiology studies performed this visit Discharge Plan Discharge Patient Disposition: Home Clinical Impression: Migraine Qualifiers: Migraine type: unspecified Status migrainosus presence: without status migrainosus Intractability: not intractable Qualified Code(s): G43.909 - Migraine, unspecified, not intractable, without status migrainosus Condition: Stable Prescriptions: No Action lisinopril 5 mg tablet 5 mg PO DAILY@09 ondansetron HCl 4 mg tablet 4 mg PO Q8H PRN (Reason: nausea and vomiting) Qty: 6 0RF Keppra 500 mg Tablet 500 mg PO BID avdvzrfkvh-tzyzaptqdltop-wyso 50-325-40 mg Tablet 1 tab PO Q4H PRN (Reason: Migraine Headache) famotidine 20 mg Tablet 20 mg PO DAILY baclofen 10 mg Tablet 10 mg PO TID PRN (Reason: Muscle Spasm) trazodone 100 mg tablet 100 mg PO BEDTIME@09 paroxetine HCl 20 mg tablet 40 mg PO BEDTIME@09 propranolol 20 mg tablet 20 mg PO BID@09,22 Lamictal XR 50 mg tablet extended release 24hr 50 mg PO DAILY@09 Rx Instructions: take with Lamictal XR 100mg daily Lamictal XR 100 mg tablet extended release 24hr 100 mg PO DAILY@09 ketorolac 10 mg tablet 10 mg PO TID PRN (Reason: pain) Qty: 10 0RF hydrocodone-acetaminophen 5-325 mg tablet 1 tab PO Q6H PRN (Reason: pain) Qty: 8 0RF ondansetron 4 mg tablet,disintegrating 4 mg PO Q6H PRN (Reason: nausea and vomiting) Qty: 10 1RF Pyridium 200 mg tablet 200 mg PO Q8H PRN (Reason: pain) Qty: 10 1RF Discharge Orders: Discharge ED (Routine); Ordered 10/03/23 Ordered By: Suzanne Lund Referrals: Guillermo,ANDRE Go [Primary Care Provider] - Patient Instructions: Headache - Migraine (Adult) Coding Level of Care Code ED Licensed Mortgage Loan Officer for Jose Haines
[2023-10-03] MEDS: LORazepam 2 mg/mL INJ 10 mL MDV 1 MG IV (16:28)
[2023-10-03] MEDS: diphenhydrAMINE 50 mg/mL SDV 1mL 25 MG IVP (16:29)
[2023-10-03] MEDS: ondansetron 2 mg/ML SDV 2 mL 4 MG IVP (16:30)
[2023-10-03] MEDS: ketorolac 60 mg/2 mL INJ 30 MG IVP (16:31)
[2023-10-03] MEDS: sodium chloride 0.9% 1,000 ML 999 ML IV (16:33)
[2023-10-03 17:06] VITALS: BP 117/76; PULSE 62; O2SAT 98
== END 2023-10-03 17:08 | disposition home or self-care (01) ==
PROVIDERS: Emergency Provider Physician Assistant; PCP Nurse Practitioner Family
DX: G43.909 Migraine, unspecified, not intractable, without status migrainosus (principal)
CPT/HCPCS: 96361; 96374; 96375; 99284; J1200; J1885; J2060; J2405; J7030

== ENCOUNTER 2023-10-14 13:53 | Emergency (ER) | payer MEDICAID, SELFPAY ==
[2023-10-14 13:54] VITALS: BP 138/103; PULSE 82; RESP 18; TEMP 36.8; O2SAT 100; BMI 40.3
--- NOTE | 2023-10-14 14:00 | ED_ITS ---
HPI - Seizure 2 General: Chief Complaint: Seizure Stated Complaint: seizure Time Seen by Provider: 10/14/23 13:55 Source: patient Mode of arrival: ambulatory Limitations: no limitations History of Present Illness: HPI Narrative: 28-year-old female has history of seizur e-like activity she takes Lamictal along with Topamax she states that she is at work and felt like she was going to have a seizure so was sent down had some tonic-clonic motions lasted seconds patient then awoke was answering questions appropriately she states she does have a headache she rates a 5 out of 10 she has a history of migraine she is not postictal at this time she is able answer all my questions appropriately denies any worsening improving factors. Seizure History: Yes (psuedoseizures) PFSH ED 2 PFSH: Medical History Generalized anxiety disorder Post-traumatic stress disorder, unspecified Seizure disorder Patient has longstanding history of seizure disorder I do not think T seizure type activity reported under observation limb delivery was a seizure related to eclampsia her mother states that it was the same type of seizure type activity at the patient has had her whole life Social History Smoking and tobacco/nicotine status: never used tobacco/nicotine Course 2 Vital Signs: Vital signs: Vital Signs Temperature 98.2 F 10/14/23 13:54 Pulse Rate 82 10/14/23 13:54 Respiratory Rate 18 10/14/23 13:54 Blood Pressure 138/103 10/14/23 13:54 Pulse Oximetry 100 10/14/23 13:54 Oxygen Delivery Me thod Room Air 10/14/23 13:54 MDM - Seizure MDM Narrative Medical decision making narrative: Patient presents here with seizure she is well-appearing here blood works all normal she is stable for discharge she is follow-up with PCP and return if worsening she understands agrees to plan. Lab Data 10/14/23 14:03 10/14/23 14:03 Labs: Laboratory Results WBC 7.52 10^3/uL (3.29-11.43) 10/14/23 14:03 RBC 4.28 10^6/uL (3.85-5.65) 10/14/23 14:03 Hgb 12.30 g/dL (11.27-16.99) 10/14/23 14:03 Hct 37.3 % (36-47) 10/14/23 14:03 MCV 87.1 fl (85-98) 10/14/23 14:03 MCH 28.7 pg (27-33) 10/14/23 14:03 MCHC 33.0 g/dL (30-55) 10/14/23 14:03 RDW 13.4 % (12.1-15.1) 10/14/23 14:03 Plt Count 298 10^3/cmm (157-399) 10/14/23 14:03 MPV 9.9 fL (7.4-10.4) 10/14/23 14:03 Neut % (Auto) 61.1 % 10/14/23 14:03 Lymph % (Auto) 27.4 % 10/14/23 14:03 Nicholas % (Auto) 10.0 % 10/14/23 14:03 Eos % (Auto) 0.8 % 10/14/23 14:03 Baso % (Auto) 0.3 % 10/14/23 14:03 Neut # (Auto) 4.60 10^3/uL (1.8-7.7) 10/14/23 14:03 Lymph # (Auto) 2.1 10^3/uL (0.8-4.8) 10/14/23 14:03 Nicholas # (Auto) 0.8 10^3/uL (0.2-0.9) 10/14/23 14:03 Eos # (Auto) 0.1 10^3/uL (0.0-0.8) 10/14/23 14:03 Baso # (Auto) 0.0 10^3/uL (0.0-0.1) 10/14/23 14:03 Nucleated RBC % (auto) 0 % 10/14/23 14:03 Nucleated RBCs # 0.0 /100WBC 10/14/23 14:03 Sodium 139 mmol/L (136-145) 10/14/23 14:03 Potassium 3.8 mmol/L (3.5-5.1) 10/14/23 14:03 Chloride 109 mmol/L (98-107) H 10/14/23 14:03 Carbon Dioxide 19 mmol/L (22-29) L 10/14/23 14:03 Anion Gap 14.8 (5-19) 10/14/23 14:03 BUN 8 mg/dL (6-20) 10/14/23 14:03 Creatinine 0.7 mg/dL (0.5-0.9) 10/14/23 14:03 GFR Calculation 98.3 mL/min (90-130) 10/14/23 14:03 Glucose 108 mg/dL (65-115) 10/14/23 14:03 Calculated Osmolality 287 mOsm/kg (285-295) 10/14/23 14:03 Calcium 9.3 mg/dL (8.5-10.5) 10/14/23 14:03 Total Bilirubin 0.3 mg/dL (0.15-1.2) 10/14/23 14:03 AST 36 U/L (0-32) H 10/14/23 14:03 ALT 45 U/L (0-33) H 10/14/23 14:03 Alkaline Phosphatase 58 U/L (35-105) 10/14/23 14:03 Total Protein 7.2 g/dL (6.6-8.7) 10/14/23 14:03 Albumin 4.0 g/dL (3.5-5.2) 10/14/23 14:03 Globulin 3.2 g/dL (1.3-4.6) 10/14/23 14:03 No radiology studies performed this visit Discharge Plan Discharge Patient Disposition: Home Clinical Impression: Generalized seizure Condition: Stable Prescriptions: No Action baclofen 10 mg Tablet 10 mg PO TID PRN (Reason: Muscle Spasm) lamotrigine [Lamictal XR] 100 mg tablet extended release 24hr 200 mg PO BEDTIME@20 Rx Instructions: take with 50mg trazodone 50 mg tablet 50 mg PO BEDTIME Protonix 40 mg Tablet,Delayed Release (Dr/Ec) 40 mg PO BEDTIME@20 iron 325 mg (65 mg iron) Tablet 325 mg PO DAILY paroxetine HCl 40 mg tablet 40 mg PO BEDTIME@20 Topamax 100 mg Tablet 100 mg PO BID lamotrigine 50 mg tablet,disintegrating 50 mg PO BEDTIME@20 Rx Instructions: take with 100mg tabs Nurtec ODT 75 mg Tablet,Disintegrating 75 mg PO .EVERY 48 HOURS PRN (Reason: Migraine Headache) Mushtaqovy Autoinjector 225 mg/1.5 mL Auto-Injector 225 mg SUBCUT Q30D ondansetron 4 mg tablet,disintegrating 4 mg PO TID PRN (Reason: nausea and vomiting) Discharge Orders: Discharge ED (Routine); Ordered 10/14/23 Ordered By: Janny Goff Referrals: Li,Abbi, CLASSROOM PARAPROFESSIONAL [Primary Care Provider] - 1-3 days Discharge Diet: Advance as tolerated Discharge Activity: Resume usual activity Patient Instructions: Seizures Coding Level of Care Code ED Truck Driving Instructor for Jose Haines
[2023-10-14 14:11] LABS: Basophils % 0.3 %; Eosinophils # 0.1 10^3/uL (0.0-0.8); Eosinophils % 0.8 %; Hematocrit 37.3 % (36-47); Lymphocytes # 2.1 10^3/uL (0.8-4.8); Lymphocytes % 27.4 %; Mean Corpuscular Hemoglobin 28.7 pg (27-33); Mean Corpuscular Volume 87.1 fl (85-98); Mean Platelet Volume 9.9 fL (7.4-10.4); Monocytes # 0.8 10^3/uL (0.2-0.9); Neutrophils % 61.1 %; Nucleated Red Blood Cells % 0 %; Platelet Count 298 10^3/cmm (157-399); Red Blood Count 4.28 10^6/uL (3.85-5.65); Red Cell Distribution Width 13.4 % (12.1-15.1); White Blood Count 7.52 10^3/uL (3.29-11.43)
[2023-10-14 14:36] LABS: Alanine Aminotransferase 45 U/L (0-33); Alkaline Phosphatase 58 U/L (35-105); Anion Gap 14.8 (5-19); Aspartate Amino Transferase 36 U/L (0-32); Blood Urea Nitrogen 8 mg/dL (6-20); Calcium 9.3 mg/dL (8.5-10.5); Carbon Dioxide 19 mmol/L (22-29); Chloride 109 mmol/L (98-107); Creatinine Clr Calc Pharmacy 150.1551; Globulin 3.2 g/dL (1.3-4.6); Glomerular Filtration Rate 98.3 mL/min (90-130); Glucose 108 mg/dL (65-115); Osmolality Calculated 287 mOsm/kg (285-295); Potassium 3.8 mmol/L (3.5-5.1); Sodium 139 mmol/L (136-145); Total Bilirubin 0.3 mg/dL (0.15-1.2); Total Protein 7.2 g/dL (6.6-8.7)
[2023-10-14 15:00] VITALS: BP 126/77; PULSE 73; RESP 18; O2SAT 99
[2023-10-14] MEDS: metoclopramide 5 mg/mL SDV 2 mL 10 MG IVP (15:10)
[2023-10-14] MEDS: diphenhydrAMINE 50 mg/mL SDV 1mL IVP (15:10)
[2023-10-14 15:51] VITALS: BP 137/80; PULSE 66; RESP 18; O2SAT 98
== END 2023-10-14 15:53 | disposition home or self-care (01) ==
PROVIDERS: Emergency Provider Emergency Medicine; PCP Nurse Practitioner Family
DX: G40.409 Other generalized epilepsy and epileptic syndromes, not intractable, without status epilepticus (principal)
CPT/HCPCS: 80053; 85025; 96374; 96375; 99284; J1200; J2765

== ENCOUNTER 2023-10-27 13:15 | Emergency (ER) | payer MEDICAID, SELFPAY ==
[2023-10-27 13:16] VITALS: BP 153/91; PULSE 80; RESP 18; TEMP 36.8; O2SAT 99; BMI 38.7
--- NOTE | 2023-10-27 13:24 | ECG_ITS ---
[facility] Test Date: 2023-10-27 Pat Name: Hiwot Naranjo Department: Room: Gender: Female Gas Station Operator: : 1995 Requested By: Janny Goff Order Number: [id number] Warren MD: Angel Sanchez M.D. Measurements Intervals [place] Rate: 76 P: 67 CO: 203 QRS: 57 QRSD: 97 T: 62 QT: 389 QTc: 439 Interpretive Statements Sinus rhythm with significant underlying baseline artifact ABNORMAL RHYTHM ECG Compared to ECG 03/10/2022 23:37:07 Sinus bradycardia no longer present Electronically Signed On 10-27-2023 14:19:46 ART CONSULTANT by Angel Sanchez M.D. [id number]
--- NOTE | 2023-10-27 13:29 | W.ED.SEIZURE ---
HPI - Seizure General: Chief Complaint: Seizure Stated Complaint: seizure Time Seen by Provider: 10/27/23 13:16 Source: patient Mode of arrival: ambulatory Limitations: no limitations History of Present Illness: HPI Narrative: 28-year-old female with a history of seizures she registration at the [facility] and had a seizure and had rapid response called. She is now awake and alert answering all my questions properly states she has been under lots of stress and that stresses because of these in the past. She does admit to being depressed she denies any suicidal plan or ideation to me she states she is getting follow-up with psychiatric services in [place]. Denies headache denies fever Seizure History: Yes Associated symptoms: Deny chest pain, chills or fever(s) Review of Systems Const: Denies: fever(s), chills, body aches or change in appetite Eyes: Denies: blurry vision or eye discomfort ENMT: Denies: throat pain or dental pain Card: Denies: chest pain Resp: Denies: dyspnea GI: Denies: abdominal pain, nausea, vomiting or diarrhea Musc: Denies: neck pain or back pain Skin/Breast: Denies: rash Neuro: Reports: seizure-like activity; Denies: headache(s) Psych: Reports: depression PFSH ED PFSH: Medical History Generalized anxiety disorder Post-traumatic stress disorder, unspecified Seizure disorder Patient has longstanding history of seizure disorder I do not think T seizure type activity reported under observation limb delivery was a seizure related to eclampsia her mother states that it was the same type of seizure type activity at the patient has had her whole life Social History Smoking and tobacco/nicotine status: never used tobacco/nicotine Physical Exam Const: COMMON NORMALS: no acute distress, patient oriented x3 and healthy appearing HENMT: COMMON NORMALS: normocephalic and atraumatic HEAD & SCALP: normocephalic and atraumatic Eye: COMMON NORMALS: conjunctivae normal CONJUNCTIVA: Yes conjunctivae normal Neck/C-Spine: COMMON NORMALS: full ROM and supple Chest: COMMONS NORMALS: normal inspection of the chest Resp: COMMON NORMALS: normal respiratory effort Cardio: COMMON NORMALS: regular rate, regular rhythm and No murmurs present (Cardio) RATE: regular rate RHYTHM: regular rhythm Extremity: COMMON NORMALS: normal to inspection and full ROM Neuro: COMMON NORMALS: patient oriented x3, moves all extremities and no focal motor deficits Psych: COMMON NORMALS: mental status grossly normal, Normal thought process present and cooperative THOUGHT PROCESS: Normal thought process present Skin: COMMON NORMALS: no rashes or lesions noted and no wounds GENERAL SKIN EXAM: no rashes or lesions noted Course Vital Signs: Vital signs: Vital Signs Temperature 98.2 F 10/27/23 13:16 Pulse Rate 80 10/27/23 13:16 Respiratory Rate 18 10/27/23 13:16 Blood Pressure 153/91 10/27/23 13:16 Pulse Oximetry 99 10/27/23 13:16 Oxygen Delivery Me thod Room Air, Ambu-Ba g 10/27/23 13:16 MDM - Seizure MDM Narrative Medical decision making narrative: Patient presents here with a possible seizure she has a history of functional seizures in the past she has been under a lot of stress she is well-appearing here blood work is normal she did admit to being depressed but she denies any active suicidal thoughts she is not a threat to herself or others she is stable for discharge she is following up with psychiatry she is return if worsening she understands agrees to plan Lab Data 10/27/23 13:23 10/27/23 13:23 Labs: Laboratory Results WBC 5.89 10^3/uL (3.29-11.43) 10/27/23 13:23 RBC 4.06 10^6/uL (3.85-5.65) 10/27/23 13:23 Hgb 11.60 g/dL (11.27-16.99) 10/27/23 13:23 Hct 36.0 % (36-47) 10/27/23 13:23 MCV 88.7 fl (85-98) 10/27/23 13:23 MCH 28.6 pg (27-33) 10/27/23 13:23 MCHC 32.2 g/dL (30-55) 10/27/23 13:23 RDW 12.6 % (12.1-15.1) 10/27/23 13:23 Plt Count 272 10^3/cmm (157-399) 10/27/23 13:23 MPV 9.4 fL (7.4-10.4) 10/27/23 13:23 Neut % (Auto) 57.1 % 10/27/23 13:23 Lymph % (Auto) 34.0 % 10/27/23 13:23 [place] % (Auto) 7.1 % 10/27/23 13:23 Eos % (Auto) 1.0 % 10/27/23 13:23 Baso % (Auto) 0.3 % 10/27/23 13:23 Neut # (Auto) 3.36 10^3/uL (1.8-7.7) 10/27/23 13:23 Lymph # (Auto) 2.0 10^3/uL (0.8-4.8) 10/27/23 13:23 [place] # (Auto) 0.4 10^3/uL (0.2-0.9) 10/27/23 13:23 Eos # (Auto) 0.1 10^3/uL (0.0-0.8) 10/27/23 13:23 Baso # (Auto) 0.0 10^3/uL (0.0-0.1) 10/27/23 13:23 Nucleated RBC % (auto) 0 % 10/27/23 13: Nucleated RBCs # 0.0 /100WBC 10/27/23 13:23 Sodium 136 mmol/L (136-145) 10/27/23 13:23 Potassium 4.1 mmol/L (3.5-5.1) 10/27/23 13:23 Chloride 104 mmol/L (98-107) 10/27/23 13:23 Carbon Dioxide 21 mmol/L (22-29) L 10/27/23 13:23 Anion Gap 15.1 (5-19) 10/27/23 13:23 BUN 8 mg/dL (6-20) 10/27/23 13:23 Creatinine 0.7 mg/dL (0.5-0.9) 10/27/23 13:23 GFR Calculation 98.3 mL/min (90-130) 10/27/23 13:23 Glucose 114 mg/dL (65-115) 10/27/23 13:23 Calculated Osmolality 281 mOsm/kg (285-295) L 10/27/23 13:23 Calcium 8.5 mg/dL (8.5-10.5) 10/27/23 13:23 HCG, Qual Negative (Negative) 10/27/23 13:23 All radiology interpretation(s) finalized by discharge EKG Data EKG 1: Attestation: I personally reviewed and interpreted this EKG as follows: EKG interpretation date: 10/27/23 EKG interpretation time: 13:24 Interpretation: nsr hr [address] or t wave abnormalities qrs 97 qtc 420 Discharge Plan Discharge Patient Disposition: Home Clinical Impression: Generalized seizure Depression Qualifiers: Depression Type: major depressive disorder Major depression recurrence: recurrent Active/Remission status: currently active Major depression episode severity: moderate Qualified Code(s): F33.1 - Major depressive disorder, recurrent, moderate Condition: Stable Prescriptions: No Action baclofen 10 mg Tablet 10 mg PO TID PRN (Reason: Muscle Spasm) lamotrigine [Lamictal XR] 100 mg tablet extended release 24hr 200 mg PO BEDTIME@20 Rx Instructions: take with 50mg topiramate 25 mg tablet 75 mg PO DAILY trazodone 50 mg tablet 50 mg PO BEDTIME pantoprazole [Protonix] 40 mg Tablet,Delayed Release (Dr/Ec) 40 mg PO BEDTIME@20 ferrous sulfate [iron] 325 mg (65 mg iron) Tablet 325 mg PO DAILY paroxetine HCl 40 mg tablet 40 mg PO BEDTIME@20 topiramate [Topamax] 100 mg Tablet 100 mg PO BID lamotrigine 50 mg tablet,disintegrating 50 mg PO BEDTIME@20 Rx Instructions: take with 100mg tabs Nurtec ODT 75 mg Tablet,Disintegrating 75 mg PO .EVERY 48 HOURS PRN (Reason: Migraine Headache) Ajovy Autoinjector 225 mg/1.5 mL Auto-Injector 225 mg SUBCUT Q30D Rx Instructions: ON THE 18TH ondansetron 4 mg tablet,disintegrating 4 mg PO TID PRN (Reason: nausea and vomiting) Discharge Orders: Discharge ED (Routine); Ordered 10/27/23 Ordered By: Janny Goff Referrals: Abbi Li FNP [Primary Care Provider] - 1-3 days Discharge Diet: Advance as tolerated Discharge Activity: Resume usual activity Patient Instructions: Depression (ED), Generalized Tonic Clonic Seizures (ED) Coding Level of Care Code ED Radiography Technician for Amandag Zaki
[2023-10-27 13:31] LABS: Basophils % 0.3 %; Eosinophils # 0.1 10^3/uL (0.0-0.8); Mean Corpuscular HGB Conc 32.2 g/dL (30-55); Mean Corpuscular Hemoglobin 28.6 pg (27-33); Mean Corpuscular Volume 88.7 fl (85-98); Mean Platelet Volume 9.4 fL (7.4-10.4); Monocytes # 0.4 10^3/uL (0.2-0.9); Monocytes % 7.1 %; Neutrophils # 3.36 10^3/uL (1.8-7.7); Neutrophils % 57.1 %; Nucleated Red Blood Cells % 0 %; Platelet Count 272 10^3/cmm (157-399); Red Blood Count 4.06 10^6/uL (3.85-5.65); Red Cell Distribution Width 12.6 % (12.1-15.1); White Blood Count 5.89 10^3/uL (3.29-11.43)
[2023-10-27 13:50] LABS: Anion Gap 15.1 (5-19); Blood Urea Nitrogen 8 mg/dL (6-20); Calcium 8.5 mg/dL (8.5-10.5); Carbon Dioxide 21 mmol/L (22-29); Chloride 104 mmol/L (98-107); Glomerular Filtration Rate 98.3 mL/min (90-130); Glucose 114 mg/dL (65-115); Osmolality Calculated 281 mOsm/kg (285-295); Potassium 4.1 mmol/L (3.5-5.1); Sodium 136 mmol/L (136-145)
[2023-10-27 13:58] LABS: HCG, Serum Qual Negative (Negative)
[2023-10-27] MEDS: LORazepam 2 mg/mL INJ 10 mL MDV 1 MG IM (14:13)
== END 2023-10-27 14:44 | disposition home or self-care (01) ==
PROVIDERS: Emergency Provider Emergency Medicine; PCP Nurse Practitioner Family
DX: G40.409 Other generalized epilepsy and epileptic syndromes, not intractable, without status epilepticus (principal); F33.1 Major depressive disorder, recurrent, moderate
CPT/HCPCS: 36415; 80048; 84703; 85025; 93005; 96372; 96374; 99284; J2060

== ENCOUNTER 2023-10-30 14:52 | Emergency (ER) | payer MEDICAID, SELFPAY ==
[2023-10-30 15:02] VITALS: BP 141/98; PULSE 68; RESP 18; TEMP 37; O2SAT 97; BMI 38.7
--- NOTE | 2023-10-30 16:31 | ED_ITS ---
HPI - Headache General: Chief Complaint: Headache Stated Complaint: headache Time Seen by Provider: 10/30/23 16:24 Source: patient Mode of arrival: ambulatory History of Present Illness: 28-year-old female who presents to the e mergency room with headache started this morning around 10:00 radiates to the base. Physical she describes like a cycle in the back of her head she also has bilateral temporal headache pain she has photophobia and mild photophobia with nausea. 1 episode of vomiting. She is tried ibuprofen as well as rimegepant with no relief. MD elicited complaint: headache Onset description: gradually Location: frontal and occipital Quality & Timing: throbbing Exacerbating factors: light and noise Relieving factors: nothing Associated symptoms: Deny chest pain, confusion, cough, diaphoresis, eye pain, eye redness, fever(s), lightheadedness, loss of vision, malaise, nausea, neck stiffness, numbness, paresthesias, photophobia, pre-syncope, rash, seizures, short of breath, sound sensitivity, syncope, vomiting or weakness Treatments prior to arrival: ibuprofen and prescription analgesic Review of Systems Const: Denies: fever(s), malaise or diaphoresis Card: Denies: chest pain, lightheadedness, syncope or pre-syncope Resp: Denies: dyspnea GI: Denies: nausea or vomiting : Denies: dysuria, urinary frequency or urinary urgency Musc: Denies: neck pain or back pain Skin/Breast: Denies: rash Neuro: Denies: confusion PFSH ED PFSH: Medical History Generalized anxiety disorder Post-traumatic stress disorder, unspecified Seizure disorder Patient has longstanding history of seizure disorder I do not think T seizure type activity reported under observation limb delivery was a seizure related to eclampsia her mother states that it was the same type of seizure type activity at the patient has had her whole life Social History Smoking and tobacco/nicotine status: never used tobacco/nicotine Physical Exam Const: COMMON NORMALS: no acute distress GENERAL APPEARANCE: cooperative and comfortable ORIENTATION/CONSCIOUSNESS: Yes awake, Yes oriented to person, Yes oriented to place and Yes oriented to time HENMT: COMMON NORMALS: normocephalic, atraumatic and hearing grossly normal bilaterally HEAD & SCALP: normocephalic and atraumatic Eye: DIRECT OPHTHALMOSCOPY: No photophobia Resp: COMMON NORMALS: normal respiratory effort, No retractions, No use of accessory muscles and clear to auscultation bilaterally AUSCULTATION: clear to auscultation bilaterally Cardio: COMMON NORMALS: regular rate, regular rhythm and No murmurs present (Cardio) RATE: regular rate RHYTHM: regular rhythm GI: COMMON NORMALS: Soft to palpation and No hepatosplenomegaly present AUSCULTATION: Yes normoactive bowel sounds PALPATION: Yes Soft to palpation, No Tenderness to palpation present (GI), No Guarding due to palpation present (GI) and Yes No hepatosplenomegaly present Extremity: COMMON NORMALS: normal to inspection, capillary refill normal, no clubbing, cyanosis or edema, no calf tenderness and no pedal edema Neuro: SENSORIUM/ORIENTATION: Yes oriented to person, Yes oriented to place and Yes oriented to time Skin: COMMON NORMALS: no rashes or lesions noted GENERAL SKIN EXAM: no rashes or lesions noted Course Vital Signs: Vital signs: Vital Signs Temperature 98.6 F 10/30/23 15:02 Pulse Rate 60 10/30/23 17:07 Respiratory Rate 18 10/30/23 15:02 Blood Pressure 141/98 10/30/23 15:02 Pulse Oximetry 98 10/30/23 17:07 Oxygen Delivery Me thod Room Air 10/30/23 17:07 MDM - Headache Medical Decision Making Tension headache improved with medications given will discharge home with promethazine to use as needed follow-up with primary care continue to use Nurtec as needed. Medical Records I reviewed the patient's medical records. Lab Data I reviewed the patient's lab results. No radiology studies performed this visit Discharge Plan Discharge Patient Disposition: Home Clinical Impression: Tension headache Condition: Stable Prescriptions: New promethazine 25 mg tablet 25 mg PO Q6H PRN (Reason: nausea and vomiting/headache) Qty: 20 0RF No Action baclofen 10 mg Tablet 10 mg PO TID PRN (Reason: Muscle Spasm) lamotrigine [Lamictal XR] 100 mg tablet extended release 24hr 200 mg PO BEDTIME@20 trazodone 50 mg tablet 50 mg PO BEDTIME pantoprazole [Protonix] 40 mg Tablet,Delayed Release (Dr/Ec) 40 mg PO BEDTIME@20 ferrous sulfate [iron] 325 mg (65 mg iron) Tablet 325 mg PO DAILY paroxetine HCl 40 mg tablet 40 mg PO BEDTIME@20 topiramate [Topamax] 100 mg Tablet 100 mg PO BID lamotrigine 50 mg tablet,disintegrating 50 mg PO BID Rx Instructions: take with 25mg TO= 75 MG TWICE DAILY Nurtec ODT 75 mg Tablet,Disintegrating 75 mg PO .EVERY 48 HOURS PRN (Reason: Migraine Headache) Ajovy Autoinjector 225 mg/1.5 mL Auto-Injector 225 mg SUBCUT Q30D Rx Instructions: ON THE ondansetron 4 mg tablet,disintegrating 4 mg PO TID PRN (Reason: nausea and vomiting) lamotrigine 25 mg Tablet 25 mg PO BID Rx Instructions: TAKE WITH 50 MG TABLET TO=75MG TWICE DAILY Discharge Orders: Discharge ED (Routine); Ordered 10/30/23 Ordered By: Walter Barrera Referrals: Abbi Li FNP [Primary Care Provider] - Discharge Diet: Usual diet Discharge Activity: Increase activity as tolerated Patient Instructions: Opioid Safety, Pain Management Activity Restrictions/Additional Instructions: Thank you for choosing [facility] for your healthcare needs today. Please realize this is an emergency room and that we are providing you with a medical screening exam and this may not be complete and all inclusive of all the testing and or work up that you may need to determine your ailment or severity of your illness. It is very important that you follow up as instructed or that you return to the Emergency Department should you have concerns or if your condition changes or worsens in any way. You were seen today for a tension headache. You can continue to use the previously prescribed medications (Nurtec) as prescribed in addition you can take promethazine as needed for breakthrough headaches especially if they are ca using nausea. Coding Level of Care Code ED Furniture Builder for Jose Haines
[2023-10-30] MEDS: dexamethasone 10 mg/mL INJ IM (16:40)
[2023-10-30] MEDS: ketorolac 30 mg/mL INJ IVP (16:45)
[2023-10-30] MEDS: metoclopramide 5 mg/mL SDV 2 mL 10 MG IVP (16:46)
[2023-10-30] MEDS: diphenhydrAMINE 50 mg/mL SDV 1mL IVP (16:47)
[2023-10-30] MEDS: valproic acid inj 500 MG in sodium chloride 0.9% 50 ML 55 MG IV (16:47)
--- NOTE | 2023-10-30 16:48 | PC.PHAR ---
PT STATES TAKES LAMOTRIGINE 50 MG ALONG WITH 25 MG TWICE DAILY TO =75 MG PER DOSE. PT ALSO TAKES LAMOTRIGINE XR 100 MG AT BEDTIME DAILY. OTHER MEDICATION IS TOPIRAMATE 100 MG TWICE DAILY.
[2023-10-30] MEDS: sodium chloride 0.9% 1,000 ML 999 ML IV (16:49)
[2023-10-30 17:07] VITALS: PULSE 60; O2SAT 98
[2023-10-30 17:53] VITALS: PULSE 60; O2SAT 98
== END 2023-10-30 17:55 | disposition home or self-care (01) ==
PROVIDERS: Emergency Provider Family Medicine; PCP Nurse Practitioner Family
DX: G44.209 Tension-type headache, unspecified, not intractable (principal)
CPT/HCPCS: 96365; 96375; 99284; J1100; J1200; J1885; J2765; J3490; J7030

== ENCOUNTER 2023-12-16 17:04 | Emergency (ER) | payer MEDICAID, SELFPAY ==
[2023-12-16 17:08] VITALS: BP 127/75; PULSE 96; RESP 16; TEMP 36.7; O2SAT 97; BMI 41.9
--- NOTE | 2023-12-16 17:23 | CTR_ITS ---
PROCEDURE INFORMATION: Exam: CT Head Without Contrast Exam date and time: 12/16/2023 5:27 PM Age: 28 years old Clinical indication: Injury or trauma; Fall; Other: Worsening headache; Additional info: Fall x1 week, worsening GASTON TECHNIQUE: Imaging protocol: Computed tomography of the head without contrast. Radiation optimization: All CT scans at this facility use at least one of these dose optimization techniques: automated exposure control; mA and/or kV adjustment per patient size (includes targeted exams where dose is matched to clinical indication); or iterative reconstruction. COMPARISON: CT head wo con* [id number] 03/10/2022 10:58 PM RADIATION DOSE METRICS: Total DLP (mGy-cm): 1078.98 FINDINGS: Brain: Normal. No hemorrhage. Unremarkable white matter. No mass effect. No significant change with prior exam. Cerebral ventricles: No ventriculomegaly. Paranasal sinuses: Visualized sinuses are unremarkable. No fluid levels. Mastoid air cells: Visualized mastoid air cells are well aerated. Bones/joints: Unremarkable. No acute fracture. Soft tissues: Unremarkable. CT/CT head wo con* [id number] IMPRESSION: No acute intracranial abnormality.
--- NOTE | 2023-12-16 17:27 | ED_ITS ---
Documented by User: ARABELLA Shine 12/16/23 18:23 HPI - Head Injury General: Chief complaint: Head Injury Stated complaint: headache,dizzy Time Seen by Provider: 12/16/23 17:13 Source: patient Mode of arrival: ambulatory Limitations: no limitations History of Present Illness: Patient is a 28-year-old female who presents to the emergency department complaining of headache onset 1 week. Patient previously seen at the walk-in and told to present to ED for further evaluation. She states that 1 week ago she had a seizure, and subsequently fell and hit the back of her head. She notes a history of seizures for which she takes Lamictal daily. Patient reports to me that she is unsure of any loss of consciousness, however her had stated that it took longer than usual to arouse her during her seizure. She was not seen or evaluated anywhere at that time. She notes over the past week she has had worsening occipital pain, with some newly associated nausea and visual changes. She does note a history of migraines and tension headaches, but states that this 1 feels different. She has been taking her migraine prophylactic medication as well as ibuprofen, but notes minimal relief. She is also been trying ice packs and states this has not helped. She states that the pain is worsening. She states she has had a couple of seizures since. She de nies any breathing difficulties, chest pain, or any other symptoms at this time. Complaint: head injury Onset (ago): week(s) (1) Mechanism of Injury: fall Place: home Loss of Consciousness: unsure Location of injury: occipital Severity: moderate Other Injuries: none Context: other (Seizure) Associated symptoms: Reports nausea and visual changes; Deny neck pain or vomiting Review of Systems General: Reports: 10 or more systems reviewed and unremarkable except in HPI and below Const: Denies: fever(s), chills or fatigue Eyes: Reports: change in vision ENMT: Denies: throat pain, ear or mastoid pain or nasal discharge Card: Denies: chest pain, palpitations, swelling of feet/ankles or lightheadedness Resp: Denies: dyspnea, productive cough or wheezing GI: Reports: nausea; Denies: abdominal pain, vomiting or diarrhea : Denies: flank pain, difficulty voiding, dysuria or urinary frequency Musc: Denies: neck pain, back pain or joint pain Skin/Breast: Denies: rash Neuro: Reports: headache(s) and seizure-like activity; Denies: numbness in extremities or weakness in extremities PFSH ED PFSH: Medical History Generalized anxiety disorder Post-traumatic stress disorder, unspecified Seizure disorder Patient has longstanding history of seizure disorder I do not think T seizure type activity reported under observation limb delivery was a seizure related to eclampsia her mother states that it was the same type of seizure type activity at the patient has had her whole life Social History Smoking and tobacco/nicotine status: never used tobacco/nicotine Female Reproductive History: Date of last menstrual period: 11/29/23 Physical Exam Const: COMMON NORMALS: no acute distress, average body habitus, patient oriented x3, no limitations, healthy appearing and alert GENERAL APPEARANCE: cooperative and comfortable NUTRITIONAL APPEARANCE: obese ORIENTATION/CONSCIOUSNESS: Yes awake, Yes oriented to person, Yes oriented to place and Yes oriented to time HENMT: COMMON NORMALS: normocephalic, atraumatic, hearing grossly normal bilaterally, external ears normal, EAC's normal, TM's normal bilaterally and Normal external nose present HEAD & SCALP: normal to inspection, normocephalic and atraumatic; no Moy's sign, no hematoma, no palpable skull fracture, no raccoon eyes and no scalp tenderness FACE & SINUS: normal facial exam NOSE: Normal external nose present EXTERNAL EAR: Yes external ears normal EXTERNAL AUDITORY CANAL: EAC's normal TYMPANIC MEMBRANE: TM's normal bilaterally Eye: COMMON NORMALS: Equal, round and reactive pupils present, EOMs intact bilaterally, conjunctivae normal and normal visual beck by confrontation CONJUNCTIVA: Yes conjunctivae normal PUPIL: Yes Equal, round and reactive pupils present Neck/C-Spine: COMMON NORMALS: full ROM, no lymphadenopathy and supple GENERAL: Yes normal visual inspection CERVICAL SPINE: Yes cervical ROM normal Resp: COMMON NORMALS: normal respiratory effort, No retractions, No use of accessory muscles and clear to auscultation bilaterally AUSCULTATION: clear to auscultation bilaterally Cardio: COMMON NORMALS: regular rate, regular rhythm, S1 normal heart sound present, S2 normal heart sound present, No gallops present (Cardio), No clicks present (Cardio), No murmurs present (Cardio) and No rub (Cardio) RATE: regular rate RHYTHM: regular rhythm HEART SOUNDS: S1 normal heart sound present and S2 normal heart sound present Extremity: COMMON NORMALS: normal to inspection and full ROM Neuro: COMMON NORMALS: patient oriented x3, CN's II-XII intact bilaterally, moves all extremities, no focal motor deficits and no sensory deficits noted SENSORIUM/ORIENTATION: Yes alert, Yes oriented to person, Yes oriented to place and Yes oriented to time COORDINATION/BALANCE: fhoolm-wa-yook test normal and puui-yh-oytx test normal SPEECH: speech normal GAIT: Yes Normal gait present MOTOR EXAM: 5/5 motor strength present throughout and Pronator motor function not present COORDINATION: [id number]-[id number] test normal and zkpn-wn-jiqq test normal Psych: COMMON NORMALS: mental status grossly normal Skin: COMMON NORMALS: no rashes or lesions noted GENERAL SKIN EXAM: no rashes or lesions noted Course Vital Signs: Vital signs: Vital Signs Temperature 98.1 F 12/16/23 17:08 Pulse Rate 82 12/16/23 18:09 Respiratory Rate 16 12/16/23 18:09 Blood Pressure 140/94 12/16/23 18:09 Pulse Oximetry 96 12/16/23 18:09 Oxygen Delivery Me thod Room Air 12/16/23 17:08 MDM - Head Injury Medcial Decision Making This patient was seen and evaluated in the emergency department today for persistent headache for the past week status post seizure/fall. Patient previously seen at walk-in and referred over here for further evaluation /imaging. Vitals normal on arrival. Patient's neurological exam completely normal and she does note to me history of migraines and tension headaches. CT scan without contrast of the brain did not demonstrate any signs of hemorrhagic strokes or other abnormalities. Patient was given migraine cocktail, and upon recheck states that she felt better. Patient's associated nausea and visual changes likely consistent with a postconcussive syndrome, and patient is informed to watch for any new or concerning signs. Return precautions are given and she is instructed to follow-up with her primary care provider. Lab Data Radiology Impressions Head CT 12/16/23 17:23 IMPRESSION: No acute intracranial abnormality. All radiology interpretation(s) finalized by discharge Discharge Plan Discharge Patient Disposition: Home Clinical Impression: Post concussion syndrome Closed head injury Qualifiers: Encounter type: initial encounter Qualified Code(s): S09.90XA - Unspecified injury of head, initial encounter Condition: Stable Prescriptions: No Action baclofen 10 mg Tablet 10 mg PO TID PRN (Reason: Muscle Spasm) lamotrigine [Lamictal XR] 100 mg tablet extended release 24hr 200 mg PO BEDTIME@20 trazodone 50 mg tablet 50 mg PO BEDTIME pantoprazole [Protonix] 40 mg Tablet,Delayed Release (Dr/Ec) 40 mg PO BEDTIME@20 ferrous sulfate [iron] 325 mg (65 mg iron) Tablet 325 mg PO DAILY paroxetine HCl 40 mg tablet 40 mg PO BEDTIME@20 topiramate [Topamax] 100 mg Tablet 100 mg PO BID lamotrigine 50 mg tablet,disintegrating 50 mg PO BID Rx Instructions: take with 25mg TO= 75 MG TWICE DAILY Nurtec ODT 75 mg Tablet,Disintegrating 75 mg PO .EVERY 48 HOURS PRN (Reason: Migraine Headache) Ajovy Autoinjector 225 mg/1.5 mL Auto-Injector 225 mg SUBCUT Q30D Rx Instructions: ON THE 18TH ondansetron 4 mg tablet,disintegrating 4 mg PO TID PRN (Reason: nausea and vomiting) lamotrigine 25 mg Tablet 25 mg PO BID Rx Instructions: TAKE WITH 50 MG TABLET TO=75MG TWICE DAILY Discharge Orders: Discharge ED (Routine); Ordered 12/16/23 Ordered By: Adolph Richardson Referrals: Abbi Li FNP [Primary Care Provider] - Discharge Diet: Usual diet Discharge Activity: Increase activity as tolerated Patient Instructions: Post Concussion Syndrome (ED) Activity Restrictions/Additional Instructions: Continue regular medications as prescribed. Plenty of fluids. Avoid any stre nuous activity until your headache subsides. Follow-up with your primary care provider. Return with any new or concerning symptoms. Coding Level of Care Code ED Water Leak Repairer for Amandag Fwd Documented by User: Walter Barrera DO 12/20/23 08:22 HPI - Head Injury General: Chief complaint: Head Injury Stated complaint: headache,dizzy Time Seen by Provider: 12/16/23 17:13 PFSH ED PFSH: Medical History Generalized anxiety disorder Post-traumatic stress disorder, unspecified Seizure disorder Patient has longstanding history of seizure disorder I do not think T seizure type activity reported under observation limb delivery was a seizure related to eclampsia her mother states that it was the same type of seizure type activity at the patient has had her whole life Social History Smoking and tobacco/nicotine status: never used tobacco/nicotine Course Vital Signs: Vital signs: Vital Signs Temperature 98.1 F 12/16/23 17:08 Pulse Rate 82 12/16/23 18:09 Respiratory Rate 16 12/16/23 18:09 Blood Pressure 140/94 12/16/23 18:09 Pulse Oximetry 96 12/16/23 18:09 Oxygen Delivery Me thod Room Air 12/16/23 17:08 MDM - Head Injury Medcial Decision Making This patient was seen and evaluated in the emergency department today for persistent headache for the past week status post seizure/fall. Patient previously seen at walk-in and referred over here for further evaluation/imaging. Vitals normal on arrival. Patient's neurological exam completely normal and she does note to me history of migraines and tension headaches. CT scan without contrast of the brain did not demonstrate any signs of hemorrhagic strokes or other abnormalities. Patient was given migraine cocktail, and upon recheck states that she felt better. Patient's associated nausea and visual changes likely consistent with a postconcussive syndrome, and patient is informed to watch for any new or concerning signs. Return precautions are given and she is instructed to follow-up with her primary care provider. Chart reviewed Lab Data Radiology Impressions Head CT 12/16/23 17:23 IMPRESSION: No acute intracranial abnormality. Discharge Plan Discharge Patient Disposition: Home Clinical Impression: Post concussion syndrome Closed head injury Qualifiers: Encounter type: initial encounter Qualified Code(s): S09.90XA - Unspecified injury of head, initial encounter Condition: Stable Prescriptions: No Action baclofen 10 mg Tablet 10 mg PO TID PRN (Reason: Muscle Spasm) lamotrigine [Lamictal XR] 100 mg tablet extended release 24hr 200 mg PO BEDTIME@20 trazodone 50 mg tablet 50 mg PO BEDTIME pantoprazole [Protonix] 40 mg Tablet,Delayed Release (Dr/Ec) 40 mg PO BEDTIME@20 ferrous sulfate [iron] 325 mg (65 mg iron) Tablet 325 mg PO DAILY paroxetine HCl 40 mg tablet 40 mg PO BEDTIME@20 topiramate [Topamax] 100 mg Tablet 100 mg PO BID lamotrigine 50 mg tablet,disintegrating 50 mg PO BID Rx Instructions: take with 25mg TO= 75 MG TWICE DAILY Nurtec ODT 75 mg Tablet,Disintegrating 75 mg PO .EVERY 48 HOURS PRN (Reason: Migraine Headache) Ajovy Autoinjector 225 mg/1.5 mL Auto-Injector 225 mg SUBCUT Q30D Rx Instructions: ON THE 18 ondansetron 4 mg tablet,disintegrating 4 mg PO TID PRN (Reason: nausea and vomiting) lamotrigine 25 mg Tablet 25 mg PO BID Rx Instructions: TAKE WITH 50 MG TABLET TO=75MG TWICE DAILY Discharge Orders: Discharge ED (Routine); Ordered 12/16/23 Ordered By: Adolph Richardson Referrals: Abbi Li FNP [Primary Care Provider] - Discharge Diet: Usual diet Discharge Activity: Increase activity as tolerated Patient Instructions: Post Concussion Syndrome (ED) Activity Restrictions/Additional Instructions: Continue regular medications as prescribed. Plenty of fluids. Avoid any strenuous activity until your headache subsides. Follow-up with your primary care provider. Return with any new or concerning symptoms. Coding Level of Care Code ED Water Leak Repairer for Jose Haines
[2023-12-16 18:09] VITALS: BP 140/94; PULSE 82; RESP 16; O2SAT 96
[2023-12-16] MEDS: metoclopramide 5 mg/mL SDV 2 mL 10 MG IM (18:10)
[2023-12-16] MEDS: diphenhydrAMINE 50 mg/mL SDV 1mL IM (18:10)
[2023-12-16] MEDS: dexamethasone 10 mg/mL INJ 8 MG IM (18:10)
[2023-12-16] MEDS: ketorolac 60 mg/2 mL INJ IM (18:10)
== END 2023-12-16 18:39 | disposition home or self-care (01) ==
PROVIDERS: Emergency Provider Physician Assistant; PCP Nurse Practitioner Family
DX: F07.81 Postconcussional syndrome (principal); S09.8XXA Other specified injuries of head, initial encounter; W18.39XA Other fall on same level, initial encounter
CPT/HCPCS: 70450; 96372; 99284; J1100; J1200; J1885; J2765

== ENCOUNTER 2024-08-27 15:15 | Outpatient (CLI) | payer MEDICAID, SELFPAY ==
--- NOTE | 2024-08-27 15:25 | MR_ITS ---
WS: [id number] MRI RIGHT KNEE NONCONTRAST TECHNIQUE: Axial PD, coronal PD fat sat, coronal PD, sagittal PD, and sagittal PD fat-sat images obta ined. CLINICAL INFORMATION: RIGHT KNEE PAIN COMPARISON: None. FINDINGS: Distal quadriceps and patella tendons are intact. Normal ACL and PCL. Medial and lateral meniscus yas ear intact. Mild chronic thinning of the medial meniscus. No acute appearing meniscal tears. Moderate chondromalacia patella advanced for patient this age. Medial and lateral patellar retinaculu m appear intact. No subchondral edema. Normal tibial plateau. Normal bone marrow signal in the femora l condyles. Medial and lateral collateral ligaments appear intact. Fibular head appears normal. MR/MR knee RT wo con* [id number] IMPRESSION: 1. ACL and PCL appear intact. Mild mucoid degeneration involving the ACL. 2. Mild chronic thinning of the medial and lateral meniscus. No acute appearin g meniscal tears. 3. Moderate chondromalacia patella. This is advanced for patient this age. No subchondral edema. 4. Medial and lateral collateral ligaments appear intact. 5. No other acute findings. Outbridge grading: grade III: partial-thickness cartilage loss with focal ulcer ation
== END 2024-08-27 15:25 | disposition home or self-care (01) ==
PROVIDERS: PCP Nurse Practitioner Family; Visit Provider Nurse Practitioner Family
DX: M22.41 Chondromalacia patellae, right knee (principal)
CPT/HCPCS: 73721

== ENCOUNTER → 2024-10-14 13:15 | Outpatient (BNVA) | payer MEDICAID, SELFPAY | PROVIDERS: PCP Nurse Practitioner Family; Visit Provider Student in an Organized Health Care Education/Training Program | DX: M25.569 Pain in unspecified knee (principal); M17.11 Unilateral primary osteoarthritis, right knee; M94.262 Chondromalacia, left knee; M94.261 Chondromalacia, right knee | CPT/HCPCS: 73560; 73565 ==

== ENCOUNTER 2025-01-04 11:51 | Emergency (ER) | payer MEDICAID, SELFPAY ==
[2025-01-04 11:55] VITALS: BP 122/87; PULSE 80; RESP 18; TEMP 36.7; O2SAT 98
[2025-01-04 13:28] VITALS: BP 122/81; PULSE 65; O2SAT 99
[2025-01-04 13:40] LABS: Basophils # 0.1 10^3/uL (0.0-0.1); Basophils % 0.6 %; Eosinophils # 0.3 10^3/uL (0.0-0.8); Eosinophils % 3.8 %; Hematocrit 32.9 % (36-47); Lymphocytes % 25.6 %; Mean Corpuscular HGB Conc 29.8 g/dL (30-55); Mean Corpuscular Hemoglobin 22.6 pg (27-33); Mean Corpuscular Volume 75.8 fl (85-98); Mean Platelet Volume 9.8 fL (7.4-10.4); Monocytes # 0.7 10^3/uL (0.2-0.9); Monocytes % 8.8 %; Neutrophils # 4.83 10^3/uL (1.8-7.7); Neutrophils % 60.4 %; Nucleated Red Blood Cells % 0 %; Platelet Count 337 10^3/cmm (157-399); Red Blood Count 4.34 10^6/uL (3.85-5.65); Red Cell Distribution Width 15.6 % (12.1-15.1); White Blood Count 7.98 10^3/uL (3.29-11.43)
[2025-01-04 13:51] LABS: HCG, Serum Qual Negative (Negative)
[2025-01-04 13:58] VITALS: BP 133/80; PULSE 63; O2SAT 100
--- NOTE | 2025-01-04 14:00 | W.ED.SEIZURE ---
HPI - Seizure General: Chief Complaint: Seizure Stated Complaint: had a seizure at work Time Seen by Provider: 01/04/25 13:21 Source: patient and family Mode of arrival: ambulatory Limitations: no limitations History of Present Illness: HPI Narrative: Patient is a 29-year-old female here along with her mother for evaluation of seizure-like activity. She reportedly has a history of nonfunctional seizures . She reportedly sees neurology in [place]. She states she has PTSD and bipolar and is on Lamictal for this. She states this also helps with her seizures. Patient states yesterday morning she woke up and felt shaky and attributed this to a seizure. She reportedly had an episode today at work where she got an aura and then some tunnel vision. She states she occasionally will have convulsive episodes but these are rare. Mother states she has had these nonfunctional seizures since at least 2013. Mother states she will often times go many months without having seizures but then she will have periods where she will have several seizures within a few week. Mother feels like this happens when her PTSD flares up. At time of my examination, patient tells me she has a migraine which she has a longstanding history of. Her headache today does not feel any different than previous migraine headaches. She also feels like she is fatigued. complaint: other (Nonepileptic seizure) Onset (ago): day(s) -: minutes(s) Witnessed: Yes - by Bystander Trauma: No Seizure History: Yes Place: Work Possible Precipitating Event: stress Associated symptoms: Reports other (Fatigue and headache); Deny chest pain, chills, fever(s), malaise or syncope Treatments prior to arrival: none Related Data Home Medications ?Medication ?Instructions ?Recorded ?Confirmed lamotrigine 100 mg tablet,extended 200 mg PO BEDTIME@20 05/09/21 01/04/25 release 24 hr (Lamictal XR) fremanezumab-vfrm 225 mg/1.5 mL 225 mg SUBCUT Q30D 10/14/23 01/04/25 subcutaneous auto-injector (Ajovy) lamotrigine 50 mg disintegrating 50 mg PO BID 10/14/23 01/04/25 tablet pantoprazole 40 mg tablet,delayed 40 mg PO BEDTIME@20 10/14/23 01/04/25 release (Protonix) paroxetine HCl 40 mg tablet 40 mg PO BEDTIME@20 10/14/23 01/04/25 rimegepant 75 mg disintegrating 75 mg PO .EVERY 48 HOURS PRN 10/14/23 01/04/25 tablet (Nurtec ODT) Migraine Headache topiramate 100 mg tablet (Topamax) 100 mg PO BID 10/14/23 01/04/25 trazodone 50 mg tablet 50 mg PO BEDTIME 10/14/23 01/04/25 Allergies Allergy/AdvReac Type Severity Reaction Status Date / Time No Known Allergies Allergy Verified 10/14/24 13:07 Review of Systems Const: Reports: fatigue; Denies: fever(s), chills, body aches or malaise Eyes: Denies: change in vision or blurry vision Card: Denies: chest pain, palpitations, irregular heart rhythm, lightheadedness, syncope or dyspnea on exertion Resp: Denies: dyspnea, productive cough or pain on inspiration GI: Denies: abdominal pain, nausea, vomiting, heartburn or diarrhea : Denies: dysuria Musc: Denies: neck pain, back pain or joint pain Skin/Breast: Denies: rash Neuro: Reports: headache(s); Denies: numbness in extremities, weakness in extremities, sensory changes or dizziness Psych: Reports: anxiety PFSH ED PFSH: Medical History Psychiatric care Generalized anxiety disorder Post-traumatic stress disorder, unspecified Seizure disorder Patient has longstanding history of seizure disorder I do not think T seizure type activity reported under observation limb delivery was a seizure related to eclampsia her mother states that it was the same type of seizure type activity at the patient has had her whole life Social History Smoking and tobacco/nicotine status: former use of tobacco/nicotine Marital status: Physical Exam Const: COMMON NORMALS: no acute distress, patient oriented x3, no limitations, alert and well nourished NUTRITIONAL APPEARANCE: obese morbidly obese (BMI 41.5) HENMT: COMMON NORMALS: normocephalic and atraumatic HEAD & SCALP: normocephalic and atraumatic Neck/C-Spine: COMMON NORMALS: full ROM, no lymphadenopathy, supple and no meningeal signs Chest: COMMONS NORMALS: normal inspection of the chest Resp: COMMON NORMALS: normal respiratory effort and clear to auscultation bilaterally AUSCULTATION: clear to auscultation bilaterally Cardio: COMMON NORMALS: regular rate and regular rhythm RATE: regular rate RHYTHM: regular rhythm GI: COMMON NORMALS: Normal to inspection, nondistended, normoactive bowel sounds present, Soft to palpation, non-tender, No hepatosplenomegaly present and no masses PALPATION: Yes Soft to palpation and Yes No hepatosplenomegaly present : COMMON NORMALS: Yes no CVA tenderness BLADDER/KIDNEY EXAM: Yes no CVA tenderness Back/Pelvis: COMMON NORMALS: no CVA tenderness and thoracic and lumbar spine normal to inspection Extremity: COMMON NORMALS: normal to inspection GENERAL: Yes normal exam except as noted Neuro: REA COMA SCALE: document GCS findings [place] coma scale eye opening: Spontaneous [place] coma scale verbal response: Orientated Rea coma scale motor response: Obey commands [place] coma scale total score: 15 COMMON NORMALS: patient oriented x3, CN's II-XII intact bilaterally, moves all extremities, no focal motor deficits and no sensory deficits noted SENSORIUM/ORIENTATION: Yes alert MENINGEAL SIGNS: Yes no meningeal signs Skin: COMMON NORMALS: no rashes or lesions noted GENERAL SKIN EXAM: no rashes or lesions noted Course Vital Signs: Vital signs: Vital Signs Temperature 98.1 F 01/04/25 11:55 Pulse Rate 80 01/04/25 11:55 Respiratory Rate 18 01/04/25 11:55 Blood Pressure 122/87 01/04/25 11:55 Pulse Oximetry 98 01/04/25 11:55 MDM - Seizure MDM Narrative Medical decision making narrative: Patient clinically appears in no acute distress. Her vital signs are stable. Blood work overall is nonactionable. She was found to have microcytic anemia. Mother aware of this and states this is secondary to heavy menstrual cycles. She does reportedly have iron that she is supposed to be taking but usually forgets. Chemistry, TSH are unremarkable. negative. UA is clear. At this time recommend she follow-up with her primary care provider as well as her neurologist for further evaluation. Lab Data 01/04/25 13:33 01/04/25 13:33 Labs: Laboratory Results WBC 7.98 10^3/uL (3.29-11.43) 01/04/25 13:33 RBC 4.34 10^6/uL (3.85-5.65) 01/04/25 13:33 Hgb 9.80 g/dL (11.27-16.99) L 01/04/25 13:33 Hct 32.9 % (36-47) L 01/04/25 13:33 MCV 75.8 fl (85-98) L 01/04/25 13:33 MCH 22.6 pg (27-33) L 01/04/25 13:33 MCHC 29.8 g/dL (30-55) L 01/04/25 13:33 RDW 15.6 % (12.1-15.1) H 01/04/25 13:33 Plt Count 337 10^3/cmm (157-399) 01/04/25 13:33 MPV 9.8 fL (7.4-10.4) 01/04/25 13:33 Neut % (Auto) 60.4 % 01/04/25 13:33 Lymph % (Auto) 25.6 % 01/04/25 13:33 [place] % (Auto) 8.8 % 01/04/25 13:33 Eos % (Auto) 3.8 % 01/04/25 13:33 Baso % (Auto) 0.6 % 01/04/25 13:33 Neut # (Auto) 4.83 10^3/uL (1.8-7.7) 01/04/25 13:33 Lymph # (Auto) 2.0 10^3/uL (0.8-4.8) 01/04/25 13:33 [place] # (Auto) 0.7 10^3/uL (0.2-0.9) 01/04/25 13:33 Eos # (Auto) 0.3 10^3/uL (0.0-0.8) 01/04/25 13:33 Baso # (Auto) 0.1 10^3/uL (0.0-0.1) 01/04/25 13:33 Nucleated RBC % (auto) 0 % 01/04/25 13:33 Nucleated RBCs # 0.0 /100WBC 01/04/25 13:33 Sodium 139 mmol/L (136-145) 01/04/25 13:33 Potassium 4.1 mmol/L (3.5-5.1) 01/04/25 13:33 Chloride 107 mmol/L (98-107) 01/04/25 13:33 Carbon Dioxide 19 mmol/L (22-29) L 01/04/25 13:33 Anion Gap 17.1 (5-19) 01/04/25 13:33 BUN 14 mg/dL (6-20) 01/04/25 13:33 Creatinine 0.6 mg/dL (0.5-0.9) 01/04/25 13:33 GFR Calculation 116.6 mL/min (90-130) 01/04/25 13:33 Glucose 84 mg/dL (65-115) 01/04/25 13:33 Calculated Osmolality 288 mOsm/kg (285-295) 01/04/25 13:33 Calcium 9.2 mg/dL (8.5-10.5) 01/04/25 13:33 Total Bilirubin 0.2 mg/dL (0.15-1.2) 01/04/25 13:33 AST 12 U/L (0-32) 01/04/25 13:33 ALT 14 U/L (0-33) 01/04/25 13:33 Alkaline Phosphatase 61 U/L (35-105) 01/04/25 13:33 Total Protein 7.5 g/dL (6.6-8.7) 01/04/25 13:33 Albumin 4.2 g/dL (3.5-5.2) 01/04/25 13:33 Globulin 3.3 g/dL (1.3-4.6) 01/04/25 13:33 TSH 2.59 uIU/mL (0.27-4.20) 01/04/25 13:33 HCG, Qual Negative (Negative) 01/04/25 13:33 Urine Color Yellow (Yellow) 01/04/25 14:11 Urine Appearance Clear (CLEAR) 01/04/25 14:11 Urine pH 6.5 (5-7) 01/04/25 14:11 Ur Specific [place] 1.014 (1.005-1.030) 01/04/25 14:11 Urine Protein Negative (Negative) 01/04/25 14:11 Urine Glucose (UA) Negative (Normal) 01/04/25 14:11 Urine Ketones Negative (Negative) 01/04/25 14:11 Urine Blood Negative (Negative) 01/04/25 14:11 Urine Nitrate Negative (Negative) 01/04/25 14:11 Urine Bilirubin Negative (Negative) 01/04/25 14:11 Urine Urobilinogen 0.2 mg/dL (Negative) 01/04/25 14:11 Ur Leukocyte Esterase Negative (Negative) 01/04/25 14:11 Urine RBC 0-2 /hpf (0-2) 01/04/25 14:11 Urine WBC 0-5 /hpf (0-5) 01/04/25 14:11 Ur Squamous Epith Cells 0-5 /hpf (0-5) 01/04/25 14:11 Amorphous Sediment Not Reportable 01/04/25 14:11 Urine Bacteria 1+ /hpf (NONE) H 01/04/25 14:11 Hyaline Casts 0.40 /lpf 01/04/25 14:11 No radiology studies performed this visit Discharge Plan Discharge Patient Disposition: Home Clinical Impression: Psychogenic nonepileptic seizure, Microcytic anemia Condition: Stable Prescriptions: No Action lamotrigine [Lamictal XR] 100 mg tablet extended release 24hr 200 mg PO BEDTIME@20 trazodone 50 mg tablet 50 mg PO BEDTIME pantoprazole [Protonix] 40 mg Tablet,Delayed Release (Dr/Ec) 40 mg PO BEDTIME@20 paroxetine HCl 40 mg tablet 40 mg PO BEDTIME@20 topiramate [Topamax] 100 mg Tablet 100 mg PO BID lamotrigine 50 mg tablet,disintegrating 50 mg PO BID Rx Instructions: take with 25mg TO= 75 MG TWICE DAILY Nurtec ODT 75 mg Tablet,Disintegrating 75 mg PO .EVERY 48 HOURS PRN (Reason: Migraine Headache) Ajovy Autoinjector 225 mg/1.5 mL Auto-Injector 225 mg SUBCUT Q30D Rx Instructions: ON THE Discharge Orders: Discharge ED (Routine); Ordered 01/04/25 Ordered By: Suzanne Lund Referrals: Abbi Li FNP [Primary Care Provider] - Activity Restrictions/Additional Instructions: As we discussed, please follow-up with your primary care provider and/or neurologist for further evaluation. She may begin taking her iron pills every other day to help with her anemia. You may also speak to her primary care provider regarding her heavy menstrual cycles. Stand Alone Forms: Work/School Release Print Language: Romansh Coding Level of Care Code ED Radiology Practitioner Assistant for Jose Haines
[2025-01-04 14:02] LABS: Alanine Aminotransferase 14 U/L (0-33); Albumin Level 4.2 g/dL (3.5-5.2); Alkaline Phosphatase 61 U/L (35-105); Anion Gap 17.1 (5-19); Aspartate Amino Transferase 12 U/L (0-32); Blood Urea Nitrogen 14 mg/dL (6-20); Calcium 9.2 mg/dL (8.5-10.5); Carbon Dioxide 19 mmol/L (22-29); Chloride 107 mmol/L (98-107); Creatinine Clr Calc Pharmacy 176.3121; Globulin 3.3 g/dL (1.3-4.6); Glomerular Filtration Rate 116.6 mL/min (90-130); Glucose 84 mg/dL (65-115); Osmolality Calculated 288 mOsm/kg (285-295); Potassium 4.1 mmol/L (3.5-5.1); Sodium 139 mmol/L (136-145); Total Bilirubin 0.2 mg/dL (0.15-1.2); Total Protein 7.5 g/dL (6.6-8.7)
[2025-01-04 14:28] VITALS: BP 131/76; PULSE 56; O2SAT 99
[2025-01-04 14:57] LABS: Bacteria Urine 1+ /hpf; RBC Urine 0-2 /hpf (0-2); Squamous Epithelial Cell Urine 0-5 /hpf (0-5); WBC Urine 0-5 /hpf (0-5)
[2025-01-04 14:58] VITALS: BP 142/82; PULSE 59; O2SAT 99
[2025-01-04 15:25] LABS: Add Urine Microscopic? YES; Bilirubin Urine Negative (Negative); Blood Urine Negative (Negative); Glucose Urine UA Negative (Normal); Ketones Urine Negative (Negative); Leukocyte Esterase Urine Negative (Negative); Nitrate Urine Negative (Negative); Protein Urine Negative (Negative); Specific Gravity, Urine 1.014 (1.005-1.030); Urine Appearance Clear (CLEAR); Urine Color Yellow (Yellow); Urobilinogen Urine 0.2 mg/dL (Negative); pH Urine 6.5 (5-7)
[2025-01-04 15:30] LABS: Thyroid Stimulating Hormone 2.59 uIU/mL (0.27-4.20)
[2025-01-04 15:52] VITALS: BP 123/56; PULSE 64; O2SAT 100
== END 2025-01-04 15:52 | disposition home or self-care (01) ==
PROVIDERS: Emergency Provider Physician Assistant; PCP Nurse Practitioner Family
DX: G40.89 Other seizures (principal); D50.9 Iron deficiency anemia, unspecified; Z87.891 Personal history of nicotine dependence
CPT/HCPCS: 36415; 80053; 81001; 84443; 84703; 85025; 99283

== ENCOUNTER → 2025-03-09 11:33 | Outpatient (BNVA) | payer OTHER, SELFPAY | PROVIDERS: PCP Nurse Practitioner Family; Visit Provider Physician Assistant | DX: M94.261 Chondromalacia, right knee (principal); M23.306 Other meniscus derangements, unspecified meniscus, right knee | CPT/HCPCS: 73560; 73565 ==

== ENCOUNTER 2025-05-20 11:51 | Outpatient (CLI) | payer MEDICAID, SELFPAY ==
--- NOTE | 2025-05-20 11:45 | MR_ITS ---
WS: [id number] MRI RIGHT KNEE NONCONTRAST TECHNIQUE: Axial PD, coronal PD fat sat, coronal PD, sagittal PD, and sagittal PD fat-sat images obtained. CLINICAL INFORMATION: derangement of right knee COMPARISON: 2023 FINDINGS: Distal quadriceps and patella tendons are intact. Hypertrophic patella. ACL and PCL appear intact. Mucoid degeneration ACL similar to previous. Chronic thinning of the medial and lateral meniscus. No acute appearing meniscal tears. Moderate chondromalacia patella somewhat advanced for patient this age. Medial and lateral patellar retinaculum appear intact. Medial and lateral collateral ligaments appear intact. Normal popliteal fossa. Normal fibula head. Normal bone marrow signal in the femoral condyles and tibial plateau. MR/MR knee RT wo con* [id number] IMPRESSION: 1. ACL and PCL appear intact. Mucoid degeneration of the ACL. 2. Chronic thinning of the medial and lateral meniscus. No acute appearing men iscal tears. 3. Grade III chondromalacia patella worse involving the medial patellar facet. 4. Medial and lateral collateral ligaments appear intact. 5. No other acute findings. Outbridge grading: grade III: partial-thickness cartilage loss with focal ulcer ation
== END 2025-05-20 11:52 | disposition home or self-care (01) ==
LOC: RAD 11:52
PROVIDERS: PCP Nurse Practitioner Family; Visit Provider Physician Assistant
DX: M23.303 Other meniscus derangements, unspecified medial meniscus, right knee (principal); M23.300 Other meniscus derangements, unspecified lateral meniscus, right knee; M22.41 Chondromalacia patellae, right knee
CPT/HCPCS: 73721

== ENCOUNTER → 2025-06-23 15:30 | Outpatient (BNVA) | payer MEDICAID, SELFPAY | PROVIDERS: PCP Nurse Practitioner Family; Visit Provider Family Medicine | DX: D64.9 Anemia, unspecified (principal) | CPT/HCPCS: 80048; 85025 ==

== ENCOUNTER 2025-06-30 08:39 | Day surgery (SDC) | payer MEDICAID, SELFPAY ==
[2025-06-30] VITALS (10 sets, daily range): BP systolic 116–151; BP diastolic 81–107; PULSE 76–116; RESP 14–18; TEMP 36.1–36.9; O2SAT 96–100; BMI 39.6
[2025-06-30] MEDS: acetaminophen 1,000 MG/100 ML PIGGYBACK 400 MG IV (09:49)
--- NOTE | 2025-06-30 09:58 | W.PM.OPSUD ---
Surgery/Procedure H&P Update DATE OF PROCEDURE: June 30, 2025 DATE H&P PERFORMED: 06/07/25 H&P UPDATE INFORMATION: I have reviewed H&P completed within last 30 days, I have examined patient prior to procedure and No changes to prior documentation PREOP DIAGNOSIS: Right knee patellofemoral chondromalacia PRIMARY INDICATION FOR PROCEDURE: Right knee patellofemoral chondromalacia PLANNED PROCEDURE: Operation Date: 06/30/25 12:00 Proposed Procedures p RIGHT Knee Diagnostic and Surgical Arthroscopy(Right) - DO barrett Salguero Patella Femoral Chondroplasty(Right) - Suhas Antonio DO
--- NOTE | 2025-06-30 10:22 | ANES.PREANE2 ---
Pre-Anesthetic Assessment Height/Weight: Height 1.68 m Weight 111.584 kg Temp Pulse Resp BP Pulse Ox O2 Del Method 97.0 F L 96 17 142/107 97 Room Air 06/30/25 09:09 06/30/25 09:09 06/30/25 09:09 06/30/25 09:09 06/30/25 09:09 06/30/25 09:09 Preop Diagnosis: Right knee patellofemoral chondromalacia Operation Date: 06/30/25 12:00 Proposed Procedures p RIGHT Knee Diagnostic and Surgical Arthroscopy(Right) - Suhas Antonio DO s Patella Femoral Chondroplasty(Right) - Suhas Antonio DO Familial anesthetic complications: NOne Was Beta Darian taken within 24 hours: N/A Was Clonidine taken within 24 hours: N/A Last intake: Intake Last Liquid Date 06/29/25 Last Liquid Time 22:00 Last Solid Date 06/29/25 Last Solid Time 22:00 Social No alcohol and No tobacco Exam alert, oriented x 3, clear to auscultation bilaterally and regular rate & rhythm Airway Mallampati: Class IV Dentition: full Comments: Comments: large neck, excess submandibular tissue GI Gastroesophageal Reflux Disease (ulcer) Metabolic Morbid Obesity Anesthetic Plan ASA status: 3 Anesthesia: General Risk of > 500 ml blood loss (7ml/kg in children): No Medications/Allergies Home Medications ?Medication ?Instructions ?Recorded ?Confirmed ?Last Taken ?Type lamotrigine 100 mg tablet,extended 200 mg PO BEDTIME@05/09/21 06/29/25 06/28/25 History release 24 hr (Lamictal XR) pantoprazole 40 mg tablet,delayed 40 mg PO BEDTIME@10/14/23 06/29/25 06/28/25 History release (Protonix) paroxetine HCl 40 mg tablet 40 mg PO BEDTIME@10/14/23 06/29/25 06/28/25 History rimegepant 75 mg disintegrating 75 mg PO .EVERY 48 HOURS PRN 10/14/23 06/29/25 06/28/25 History tablet (Nurtec ODT) Migraine Headache topiramate 100 mg tablet (Topamax) 100 mg PO BID 10/14/23 06/29/25 06/28/25 History trazodone 50 mg tablet 50 mg PO BEDTIME 10/14/23 06/29/25 06/28/25 History right economy knee brace #1 ea 03/09/25 06/07/25 Unknown Rx ferrous fumarate 324 mg (106 mg 324 mg PO DAILY 06/23/25 06/29/25 Unknown History iron) tablet (Ferrocite) fremanezumab-vfrm 225 mg/1.5 mL 225 mg (1.5 mL) SUBCUT Q30D #1.5 mL 06/23/25 06/29/25 06/19/25 Rx subcutaneous auto-injector (Ajovy) lamotrigine 50 mg disintegrating 50 mg PO QDAY 06/23/25 06/29/25 06/28/25 History tablet Allergies Allergy/AdvReac Type Severity Reaction Status Date / Time No Known Allergies Allergy Verified 06/29/25 11:22 Current Medications Generic Name Dose Route Start Last Admin Trade Name Freq PRN Reason Stop Dose Admin Sodium Chloride 1,000 mls @ 30 mls/hr 06/29/25 12:15 06/30/25 09:47 Sodium Chloride 0.9% IV 06/30/25 12:14 30 mls/hr .Q24H JIMBO Administration PFSH Anesthesia Medical History Anemia iron def from menorrhagia Psychiatric care Generalized anxiety disorder Post-traumatic stress disorder, unspecified Seizure disorder Patient has longstanding history of seizure disorder I do not think T seizure type activity reported under observation limb delivery was a seizure related to eclampsia her mother states that it was the same type of seizure type activity at the patient has had her whole life Social History Smoking and tobacco/nicotine status: never used tobacco/nicotine Marital status:
[2025-06-30 12:44] LABS: OR HCG Qualitative Urine Negative (Negative)
[2025-06-30] MEDS: ceFAZolin 2,000 MG in sodium chloride 0.9% (plus) 50 ML 100 MG IV (12:46)
[2025-06-30] MEDS: lidocaine-epi 2% PF 1:200,000 20 mL SDV 40 ML XX (13:35)
--- NOTE | 2025-06-30 14:25 | P.BOP_ITS ---
Date of Procedure: [June 30, 2025] Surgeon: [Dr. Antonio DO] Chart Calculator(s): [Cristian Antonio PA-C] Procedure(s) performed: [Right knee arthroscopy Patellofemoral chondroplasty extensive synovectomy] Findings of the procedure(s): [Right knee patella femoral grade II chondro malacia and some synovitis.. Procedure went well as planned] Estimated blood loss: [5 mL] Specimen(s) removed: [N/A] Post-operative diagnosis: [Right knee patella femoral grade II chondromalacia and some synovitis]
--- NOTE | 2025-06-30 14:27 | PM.PACU ---
PACU note Narrative: Patient is a 29-year-old female just underwent right knee arthroscopy. Pt transferred to PACU in stable condition. Dressing is dry. pt is awake and alert. pt can wiggle toes and plantarflex and dorsiflex foot. pt able to perform straight leg raise, Femoral nerve intact. Distal pulses are palpable toes are warm and well-perfused. Cap refill is normal and under 2 seconds. Sensation to foot is intact. Pain is controlled. Exam: awake Disposition: discharged
--- NOTE | 2025-06-30 15:00 | P.OP_ITS ---
Operative Report Date of procedure: June 30, 2025 Surgeon: Suhas Antonio DO Supervisor Lending Activities: Cristian Antonio PA-C: PA was necessary for assistance in this case with leg positioning, with assistance and arthroscopic instrumentation, as well as assistance in wound closure and dressing application. Procedure: Preoperative diagnosis: Right knee patellofemoral chondromalacia Post-op diagnosis: Right knee patella femoral grade II chondromalacia and some synovitis Procedure done: Right?knee?diagnostic and surgical arthroscopy patellofemoral compartment chondroplasty Right?knee?diagnostic and surgical arthroscopy with extensive synovectomy of the medial lateral and patellofemoral compartments Surgeon: Suhas Antonio DO Estimated blood loss: 5mL Tourniquet: No tourniquet was used IV fluids: See anesthesia record Complications: None Findings: See operative report narrative Condition: stable Disposition: same day Brief History: Patient is a 29-year-old female with right?knee?pain.? Patient has failed conservative treatment who has been worked up for right??knee?pain in the outpatient setting. MRI findings consistent with chondromalacia. Talked in the office about treatment options patient would like to proceed with a right?knee?diagnostic and surgical arthroscopy with patellofemoral compartment chondroplasty.? Patient understand the ins and outs of the procedure the risk benefits complication alternatives to treatment options.? Understanding risk of surgery they agree to proceed with surgical intervention.? Patient understand this may not provide patient with complete symptomatic relief of? pain as patient does have some underlying arthritis.? Understanding this and patient agree to proceed with surgical intervention all questions answered. Procedure: Patient seen and evaluated in the preoperative holding area.? Consent was reviewed and signed with patient.? Correct extremity was then marked.? Patient seen evaluated Anesthesia Department once cleared for surgery patient was taken back to the operative suite.? Patient was transported onto the OR table in supine position.? All bony prominences well-padded patient was appropriate secured to the bed.? Once appropriately anesthetized a nonsterile tourniquet was applied to the right thigh.? The right lower extremity was then prepped and draped in?standard orthopedic fashion.? Final timeout performed.? Patient received appropriate preoperative antibiotics. Patient received local anesthetic of lidocaine with epinephrine into the joint as well as around the portal sites.? No tourniquet was inflated A?standard 2 portal vertical incision diagnostic and surgical arthroscopy of the right?knee?was performed in?standard fashion.? Small stab incision made in the inferolateral portal introduced trocar and arthroscope into the suprapatellar pouch.? Suprapatellar pouch was subsequently visualized and found to have significant synovitis but no loose bodies.? Patient had noticeable significant inflamed infrapatellar fat pad and thickening hypertrophic within the patellofemoral compartment.? ?The medial gutter was free of loose bodies I then introduced the arthroscope into the medial compartment.? Within the medial compartment I then established my inferior medial working portal utilizing spinal needle outside in technique.? Once established I then visualized our articular cartilage of the medial compartment with a valgus stress.? Patient was found to have grade 0-1 chondromalacia throughout the medial compartment.? Next I inspected the meniscus.? With an arthroscopic probe was utilized to visual? all aspects of the meniscus.? Meniscal root was found to be intact.? Rest of the meniscus was found to be intact. I then subsequently performed synovectomy of the medial compartment. This completed medial compartment work. Next a introduced the arthroscope to the intercondylar notch.? PCL and ACL were intact. patient had significant thickening of the infrapatellar fat pad spanning into the medial and lateral compartments.? I then performed an extensive synovectomy with the arthroscopic shaver of the patellofemoral medial and lateral compartments as well as the intercondylar notch. Advance the?scope?into the retrocruciate space and no loose bodies were found. Next I introduced the arthroscope into the lateral compartment the lateral compartment was found to have grade 0 chondromalacia.? Lateral meniscus was found to be intact.? The root was intact.? Given the grade 0 chondromalacia there is no unstable cartilage pieces to perform chondroplasty.? This completed my work of the lateral compartment and then performed a synovectomy of the lateral compartment.? Next of the arthroscope was placed into the lateral gutter and this was free of loose bodies.? Finally I reintroduced the arthroscope into the patellofemoral compartment.? The patellofemoral was found to have grade 1-2 chondromalacia of the patellofemoral compartment.? I then subsequently utilized arthroscopic shaver and thermal wand to perform a patellofemoral compartment chondroplasty to stable articular tissue this is most pronounced having grade 2 on the undersurface of the patella. At this point I utilized arthroscopic shaver as well as thermal wand to perform extensive synovectomy of the patellofemoral compartment. This completed my work of the patellofemoral space.? I then switch my portal sites to the medial working portal.? Completed the rest of my synovectomy and the rest of my examination arthroscopy was normal. All fluid was suctioned from the joint.? ?All instruments were withdrawn.? Portal sites were closed with interrupted nylon suture.? portal sites were then covered with with Xeroform 4 x 4's ABD Curlex and Sky wrap.? Patient was then subsequently awakened from anesthesia and taken to PACU in stable condition. Disposition: Patient taken to PACU in stable condition recovering well.? Will receive appropriate discharge structure as well as pain medication postoperatively as well as? DVT prophylaxis.we will have patient follow-up with us in the office in 2 weeks.? We will weightbearing as tolerated to the right lower extremity utilizing crutches as needed.? Patient understands and agrees with current plan.? All questions answered.
== END 2025-06-30 15:05 | disposition home or self-care (01) ==
PROVIDERS: PCP Nurse Practitioner Family; Visit Provider Student in an Organized Health Care Education/Training Program
PROC: (CPT 29870; principal; 2025-06-30 12:00)
PROC: (CPT 29876; 2025-06-30 12:00)
DX: M22.41 Chondromalacia patellae, right knee (principal); M65.961 Unspecified synovitis and tenosynovitis, right lower leg; K21.9 Gastro-esophageal reflux disease without esophagitis; E66.01 Morbid (severe) obesity due to excess calories; Z68.39 Body mass index [BMI] 39.0-39.9, adult; F43.10 Post-traumatic stress disorder, unspecified; G40.909 Epilepsy, unspecified, not intractable, without status epilepticus
CPT/HCPCS: 29876; 81025; J0131; J0330; J0690; J1100; J1885; J2250; J2405; J2704; J3010; J7030; J9999